=== PATIENT | male | born 1970 | race Caucasian/White ===

== ENCOUNTER 2017-03-26 17:20 | Inpatient (IN) | payer OTHER ==
[~2017-03-26] VITALS: Ht 185.4 cm; Wt 81.1 kg
[2017-03-26 17:22] VITALS: BP 128/99; PULSE 100; RESP 20; TEMP 97.8; O2SAT 98
--- NOTE | 2017-03-26 17:36 | PD ---
HPI Chief Complaint: Chest Pain Time Seen by Provider: 17:35 Travel History International Travel<30 days: No Contact w/Intl Traveler<30days: No Traveled to known affect area: No History of Present Illness HPI 46-year-old male came to the emergency room with history of epigastric pain radiating to the right upper quadrant and left upper quadrant for past 1 week. Occasionally the pain also goes substernal. Patient has history of hepatitis C , cirrhosis and coronary artery disease with a stent in his heart. Patient decided to come to the emergency room when the symptoms were not getting better. Patient has had most of his medical care in various parts of the country. He says he has moved down to [place] to get a better treatment for his hep C. Patient was slightly tachycardic upon arrival to the ER. No history of nausea, vomiting or diarrhea. No history of fever or chills. No history of cough. PFSH Past Medical History Narrative Medical List of his past medical, surgical, social and family history is reviewed from the nursing note. Hx Anticoagulant Therapy: Yes Cardiovascular Problems: Yes Diabetes: Yes Respiratory: Yes Social History Tobacco Use: Yes Allergies-Medications (Allergen,Severity, Reaction): Coded Allergies: No Known Allergies (Unverified , 03/26/17) Comments No known drug allergies. Reported Meds & Prescriptions Reported Meds & Active Scripts Active Reported Metoprolol Tartrate 25 Mg Tab 25 Mg PO BID Novolin 70-30 Inj (Insulin Human Isoph/Insulin Regular) 1,000 Unit/10 Ml Vial 10 Units SQ Novolog Inj (Insulin Aspart) 1,000 Unit/10 Ml Vial 0 SQ DIRECTED Sliding Scale as directed. Gabapentin 300 Mg Cap 300 Mg PO TID Famotidine 40 Mg Tab 40 Mg PO HS Clopidogrel (Clopidogrel Bisulfate) 75 Mg Tab 75 Mg PO DAILY Aspirin 81 Mg Chew 81 Mg CHEW DAILY Hydrocodone-Acetaminophen 5-325 mg Tab 1 Tab PO TID PRN Narrative Medication List of his home medications reviewed from the nursing note. Review of Systems Except as stated in HPI: all other systems reviewed are Neg Cardiovascular: Positive: Chest Pain or Discomfort Gastrointestinal: Positive: Abdominal Pain Physical Exam Narrative GENERAL: Awake, alert, moderate distress SKIN: Focused skin assessment warm/dry. HEAD: Atraumatic. Normocephalic. EYES: Pupils equal and round. No scleral icterus. No injection or drainage. ENT: No nasal bleeding or discharge. Mucous membranes pink and moist. NECK: Trachea midline. No JVD. CARDIOVASCULAR: Regular rate and rhythm. No murmur appreciated. RESPIRATORY: No accessory muscle use. Clear to auscultation. Breath sounds equal bilaterally. GASTROINTESTINAL: Abdomen soft, epigastric tenderness, nondistended. Hepatic and splenic margins not palpable. MUSCULOSKELETAL: No obvious deformities. No clubbing. No cyanosis. No edema. NEUROLOGICAL: Awake and alert. No obvious cranial nerve deficits. Motor grossly within normal limits. Normal speech. PSYCHIATRIC: Appropriate mood and affect; insight and judgment normal. Data Data Last Documented VS Vital Signs Date Time Temp Pulse Resp B/P (MAP) Pulse Ox O2 Delivery O2 Flow Rate FiO2 03/26/17 18:09 18 97 Room Air 03/26/17 17:22 97.8 100 Orders Orders Complete Blood Count With Diff (03/26/17 17:51) Comprehensive Metabolic Panel (03/26/17 17:51) Lipase (03/26/17 17:51) Iv Access Insert/Monitor (03/26/17 17:51) Ecg Monitoring (03/26/17 17:51) Oximetry (03/26/17 17:51) Sodium Chloride 0.9% Flush (Ns Flush) (03/26/17 18:00) Ct Abd/Pel W Iv Contrast(Rout) (03/26/17 ) Ketorolac Inj (Toradol Inj) (03/26/17 18:00) Troponin I (03/26/17 18:00) Insulin Human Regular Inj (Novolin R Inj (03/26/17 19:15) Sodium Chlor 0.9% 1000 Ml Inj (Ns 1000 M (03/26/17 19:15) Blood Glucose (03/26/17 19:11) Iohexol 350 Inj (Omnipaque 350 Inj) (03/26/17 19:16) Admit Order (Ed Use Only) (03/26/17 20:22) Labs Laboratory Tests Test 03/26/17 18:00 White Blood Count 8.0 TH/MM3 Red Blood Count 4.56 MIL/MM3 Hemoglobin 15.6 GM/DL Hematocrit 43.9 % Mean Corpuscular Volume 96.3 FL Mean Corpuscular Hemoglobin 34.2 PG Mean Corpuscular Hemoglobin Concent 35.5 % Red Cell Distribution Width 13.7 % Platelet Count 112 TH/MM3 Mean Platelet Volume 8.1 FL Neutrophils (%) (Auto) 51.6 % Lymphocytes (%) (Auto) 37.2 % Monocytes (%) (Auto) 9.0 % Eosinophils (%) (Auto) 1.7 % Basophils (%) (Auto) 0.5 % Neutrophils # (Auto) 4.1 TH/MM3 Lymphocytes # (Auto) 3.0 TH/MM3 Monocytes # (Auto) 0.7 TH/MM3 Eosinophils # (Auto) 0.1 TH/MM3 Basophils # (Auto) 0.0 TH/MM3 CBC Comment DIFF FINAL Differential Comment Blood Urea Nitrogen 18 MG/DL Creatinine 1.00 MG/DL Random Glucose 645 MG/DL Total Protein 7.5 GM/DL Albumin 3.3 GM/DL Calcium Level 8.7 MG/DL Alkaline Phosphatase 474 U/L Aspartate Amino Transf (AST/SGOT) 146 U/L Alanine Aminotransferase (ALT/SGPT) 176 U/L Total Bilirubin 0.8 MG/DL Sodium Level 129 MEQ/L Potassium Level 4.6 MEQ/L Chloride Level 98 MEQ/L Carbon Dioxide Level 21.2 MEQ/L Anion Gap 10 MEQ/L Estimat Glomerular Filtration Rate 80 ML/MIN Hemoglobin A1c 10.9 % Troponin I LESS THAN 0.02 NG/ML Lipase 178 U/L B-Hydroxybutyrate 0.24 MMOL/L MDM Medical Decision Making Medical Screen Exam Complete: Yes Emergency Medical Condition: Yes Medical Record Reviewed: Yes Interpretation(s) Twelve-lead EKG was reviewed by me. Normal sinus rhythm, normal axis, nonspecific ST-T wave changes. Heart rate of 94 bpm. Differential Diagnosis Acute pancreatitis, acute gastritis Narrative Course 7:08 PM CBC is back and within acceptable limits. Awaiting for the chemistry, liver function test as well as CAT scan. Patient was medicated for pain and IV fluid bolus. Case has been signed over to the oncoming ER physician. Procedures EKG Prior to Arrival: Mya Thompson MD Mar 26, 2017 17:36
[2017-03-26] MEDS ORDERED: METO25TA3 PO (17:39)
[2017-03-26] MEDS ORDERED: CLOP75TA PO (17:39)
[2017-03-26] MEDS ORDERED: NOVO7030P2 SQ (17:39)
[2017-03-26] MEDS ORDERED: NOVOLOGP2 SQ (17:39)
[2017-03-26] MEDS ORDERED: FAMO40TA PO (17:39)
[2017-03-26] MEDS ORDERED: ASPI-516 CHEW (17:39)
[2017-03-26] MEDS ORDERED: HYDR-3516 PO (17:39)
[2017-03-26] MEDS ORDERED: GABA300C5 PO (17:39)
[2017-03-26] MEDS ORDERED: SODIUM CHLORIDE 0.9% FLUSH 10 ML FLUSH IV FLUSH PRN ×2 (18:00→21:15)
[2017-03-26] MEDS ORDERED: KETOROLAC TROMETHAMINE 30 MG/ML (IVP) VIAL IV PUSH ONE (18:00)
[2017-03-26 18:09] VITALS: RESP 18; O2SAT 97
[2017-03-26 18:44] LABS: AUTOMATED NEUTROPHIL # 4.1 TH/MM3 (1.8-7.7); BASOPHIL % 0.5 % (0.0-2.0); EOSINOPHIL # 0.1 TH/MM3 (0-0.4); EOSINOPHIL % 1.7 % (0.0-4.0); HEMATOCRIT 43.9 % (39.0-51.0); HEMO FLAGS DIFF FINAL; LYMPH % 37.2 % (9.0-44.0); MEAN CELL VOLUME 96.3 FL (80.0-100.0); MEAN CORPUSCULAR HEMOGLOBIN 34.2 PG (27.0-34.0); MEAN CORPUSCULAR HGB CONC 35.5 % (32.0-36.0); NEUT % 51.6 % (16.0-70.0); PLATELET COUNT 112 TH/MM3 (150-450); RED BLOOD COUNT 4.56 MIL/MM3 (4.50-5.90); RED CELL DISTRIBUTION WIDTH 13.7 % (11.6-17.2)
[2017-03-26 18:59] LABS: ALT (GPT) 176 U/L (12-78); ANION GAP 10 MEQ/L (5-15); AST (GOT) 146 U/L (15-37); BICARBONATE 21.2 MEQ/L (21.0-32.0); BLOOD UREA NITROGEN 18 MG/DL (7-18); CHLORIDE 98 MEQ/L (98-107); GLOMERULAR FILTRATION RATE 80 ML/MIN (>89); SODIUM (NA) 129 MEQ/L (136-145)
[2017-03-26 19:01] LABS: POTASSIUM 4.6 MEQ/L (3.5-5.1)
[2017-03-26 19:02] LABS: ALKALINE PHOSPHATASE 474 U/L (45-117); TOTAL BILIRUBIN ADULT 0.8 MG/DL (0.2-1.0)
--- NOTE | 2017-03-26 19:11 | PD ---
Physical Exam Narrative General: The patient is a well-developed well-nourished male in no acute distress. Head and Neck exam: Head is normocephalic atraumatic. Eyes: EOMI, pupils are equal round and reactive to light. Nose: Midline septum with pink mucous membranes Mouth: Dentition unremarkable. Moist mucus membranes. Posterior oropharynx is not erythematous. No tonsillar hypertrophy. Uvula midline. Airway patent. Neck: No palpable lymphadenopathy. No nuchal rigidity. No thyromegaly. Cardiovascular: Regular rate and rhythm without murmurs, gallops, or rubs. Lungs: Clear to auscultation bilaterally. No wheezes, rhonchi, or rales. Abdomen: Soft, with reported tenderness on palpation of the right upper quadrant of the abdomen. No other tenderness on palpation of the other quadrants of the abdomen. Negative Buck's sign. No guarding, rebound, or rigidity. Normal bowel sounds are audible. No tenderness on palpation of McBurney's point. Extremities: No clubbing, cyanosis, or edema. 2+ pulses in all 4 extremities. The patient reports having bilateral foot pain related to neuropathy. No calf tenderness on palpation. Neurologic Exam: Grossly nonfocal. Skin Exam: No rash noted. Intact skin that is warm and dry. Data Data Last Documented VS Vital Signs Date Time Temp Pulse Resp B/P (MAP) Pulse Ox O2 Delivery O2 Flow Rate FiO2 03/26/17 18:09 18 97 Room Air 03/26/17 17:22 97.8 100 Orders Orders Complete Blood Count With Diff (03/26/17 17:51) Comprehensive Metabolic Panel (03/26/17 17:51) Lipase (03/26/17 17:51) Iv Access Insert/Monitor (03/26/17 17:51) Ecg Monitoring (03/26/17 17:51) Oximetry (03/26/17 17:51) Sodium Chloride 0.9% Flush (Ns Flush) (03/26/17 18:00) Ct Abd/Pel W Iv Contrast(Rout) (03/26/17 ) Ketorolac Inj (Toradol Inj) (03/26/17 18:00) Troponin I (03/26/17 18:00) Insulin Human Regular Inj (Novolin R Inj (03/26/17 19:15) Sodium Chlor 0.9% 1000 Ml Inj (Ns 1000 M (03/26/17 19:15) Blood Glucose (03/26/17 19:11) Iohexol 350 Inj (Omnipaque 350 Inj) (03/26/17 19:16) Admit Order (Ed Use Only) (03/26/17 20:22) Chest, Single Ap (03/26/17 20:27) Aspirin Chew (Aspirin Chew) (03/26/17 20:30) Nitroglycerin 2% Oint (Nitroglycerin 2% (03/26/17 20:30) Labs Laboratory Tests Test 03/26/17 18:00 White Blood Count 8.0 TH/MM3 Red Blood Count 4.56 MIL/MM3 Hemoglobin 15.6 GM/DL Hematocrit 43.9 % Mean Corpuscular Volume 96.3 FL Mean Corpuscular Hemoglobin 34.2 PG Mean Corpuscular Hemoglobin Concent 35.5 % Red Cell Distribution Width 13.7 % Platelet Count 112 TH/MM3 Mean Platelet Volume 8.1 FL Neutrophils (%) (Auto) 51.6 % Lymphocytes (%) (Auto) 37.2 % Monocytes (%) (Auto) 9.0 % Eosinophils (%) (Auto) 1.7 % Basophils (%) (Auto) 0.5 % Neutrophils # (Auto) 4.1 TH/MM3 Lymphocytes # (Auto) 3.0 TH/MM3 Monocytes # (Auto) 0.7 TH/MM3 Eosinophils # (Auto) 0.1 TH/MM3 Basophils # (Auto) 0.0 TH/MM3 CBC Comment DIFF FINAL Differential Comment Blood Urea Nitrogen 18 MG/DL Creatinine 1.00 MG/DL Random Glucose 645 MG/DL Total Protein 7.5 GM/DL Albumin 3.3 GM/DL Calcium Level 8.7 MG/DL Alkaline Phosphatase 474 U/L Aspartate Amino Transf (AST/SGOT) 146 U/L Alanine Aminotransferase (ALT/SGPT) 176 U/L Total Bilirubin 0.8 MG/DL Sodium Level 129 MEQ/L Potassium Level 4.6 MEQ/L Chloride Level 98 MEQ/L Carbon Dioxide Level 21.2 MEQ/L Anion Gap 10 MEQ/L Estimat Glomerular Filtration Rate 80 ML/MIN Troponin I LESS THAN 0.02 NG/ML Lipase 178 U/L [place] Medical Record Reviewed: Yes Supervised Visit with KASSI: No Interpretation(s) Last Impressions Abdomen/Pelvis CT 03/26/17 0000 Signed Impressions: Service Date/Time: Sunday, March 26, 2017 19:16 - CONCLUSION: 1. Cirrhosis and portal hypertension with numerous varices as described above. Britton Miranda MD Narrative Course During the course of the patients emergency department visit, the patients history, examination, and differential diagnosis were reviewed with the patient. The patient was placed on a retort press operator with oximetry and frequent blood pressure monitoring. The patient had IV access obtained and blood work sent for analysis. The patient's case is checked out to me by Dr. Burns. Please see her complete history and physical. The patient's case was checked out to me at the conclusion of her shift. The patient reportedly had several concerns, one was abdominal pain, another was chest pain, and a third was his history of hepatitis C, and a fourth was his abdominal hernia. The patient was initially provided Toradol 30 mg IV 1 for pain. The patients laboratory studies were reviewed and remarkable for a white count of 8, hemoglobin 15.6, platelets 112 with 9 monocytes, CMP is remarkable for sodium of 129, GFR of 80, glucose 645, AST 146, ALT 176, alkaline phosphatase 474, troponin I is less than 0.02, lipase 178. According to the record, the patient does have a history of diabetes mellitus. The patient has no acidosis noted on laboratory studies suggested by an anion gap, or abnormal CO2. The patient will be given regular insulin subcutaneous. The patient will be started on normal saline 1 L IV fluid bolus. Radiology studies were reviewed and remarkable for a CT scan of the abdomen and pelvis that shows cirrhosis with portal hypertension and varices, small fat containing left inguinal hernia. No other acute abnormality. Given the patient's reported chest pain, similar to chest pain that he experienced approximately a month ago when he had a cardiac stent placed at [facility], [place], the patient will be admitted to the hospital for a rule out serial cardiac enzyme protocol, and additional management of his poorly controlled diabetes mellitus. Given the patient's chest pain, chest x-ray was added to his workup. The patient was given aspirin 162 mg by mouth 1, nitroglycerin 1 inch to chest wall. The patient reports that he last used NovoLog insulin at approximately 3:30 PM today. He administered 20 units. He reports that his blood sugar is usually above 500 or too high to measure on his Accu-Chek device. He reports that he is supposed to be on 70/30 insulin, however he cannot afford it. He reports that he is checking his blood sugar approximately every 4 hours and simply administering 20 units of NovoLog. He reports that he was diagnosed with diabetes approximately 8-9 years ago. He denies having a primary care physician. He cannot recall the name of his collateral clerk. The patients results were discussed with the patient, including the plan of care. I explained that further testing and/ or monitoring is indicated based on the patients history, examination, and/ or laboratory findings. Therefore, I recommended admission for additional evaluation. The patient expressed understanding and was agreeable with this plan. The patient was admitted to the hospital in stable condition and sent to a bed under the care of the [facility] service. Physician Communication Physician Communication The patient's case including history, pertinent physical examination findings, and laboratory studies were discussed with Dr. Belcher. It was agreed that the patient would be admitted to the [facility] service. Diagnosis Primary Impression: Chest pain, rule out acute myocardial infarction Additional Impressions: History of coronary artery disease Poorly controlled diabetes mellitus Admitting Information Admitting Physician Requests: Observation Esther Waggoner MD Mar 26, 2017 19:10
[2017-03-26] MEDS ORDERED: INSULIN HUMAN REGULAR 1,000 UNITS/10 ML VIAL SQ ONE (19:15)
[2017-03-26] MEDS ORDERED: SODIUM CHLOR 0.9% 1000 ML INJ 1,000 ML IV ONE (19:15)
[2017-03-26] MEDS ORDERED: IOHEXOL 350 MG/ML 10 ML VIAL (for RAD DIAG) IVCONTRAST ONE (19:16)
--- NOTE | 2017-03-26 19:33 | RADRPT ---
EXAM DATE/TIME: 03/26/2017 19:16 [facility] COMPARISON: No previous studies available for comparison. INDICATIONS : Epigastric pain. IV CONTRAST: 97 cc Omnipaque 350 (iohexol) IV ORAL CONTRAST: No oral contrast ingested. RADIATION DOSE: 8.49 CTDIvol (mGy) MEDICAL HISTORY : Hypertension. Diabetes mellitus type 1. SURGICAL HISTORY : Cholecystectomy. ENCOUNTER: Initial ACUITY: 1 month PAIN SCALE: 6/10 LOCATION: abdomen TECHNIQUE: Volumetric scanning of the abdomen and pelvis was performed. Using automated exposure control and ad justment of the mA and/or kV according to patient size, radiation dose was kept as low as reasonably achievable to obtain optimal diagnostic quality images. DICOM format image data is available electro nically for review and comparison. FINDINGS: There is mild nodular hepatic contour characteristic of cirrhosis. Surgical clips from previous ronen cystectomy. There are prominent varices identified in the periesophageal region, gastric varices and splenic sabiha-C's. The kidneys, pancreas and adrenal glands are unremarkable. Urinary bladder, prostate unremarkable. No evidence of bowel obstruction. Appendix normal. No adenopathy or aneurysm. Small fa t-containing left inguinal hernia. Lung bases are clear. Osseous structures are intact. CONCLUSION: 1. Cirrhosis and portal hypertension with numerous varices as described above. Britton Miranda MD on March 26, 2017 at 19:29 Board Certified Radiologist. This report was verified electronically.
[2017-03-26] MEDS ORDERED: ASPIRIN 81 MG CHEW TAB CHEW ONE (20:30)
[2017-03-26] MEDS ORDERED: NITROGLYCERIN 2% OINT 1 GM PACKET TOPICAL ONE (20:30)
[2017-03-26] MEDS ORDERED: GLUCAGON 1 MG/ML VIAL OTHER PRN (21:15)
[2017-03-26] MEDS ORDERED: DEXTROSE 50% IN WATER 50 ML VIAL(D50) IV PUSH PRN (21:15)
[2017-03-26] MEDS ORDERED: ACETAMINOPHEN 500 MG CPLT PO PRN (21:15)
--- NOTE | 2017-03-26 21:17 | RADRPT ---
EXAM DATE/TIME: 03/26/2017 20:50 [facility] COMPARISON: No previous studies available for comparison. INDICATIONS : Chest PAin MEDICAL HISTORY : Cardiovascular disease. SURGICAL HISTORY : Coronary artery stent. ENCOUNTER: Initial ACUITY: 1 day PAIN SCORE: 6/10 LOCATION: Bilateral chest FINDINGS: A single view of the chest demonstrates the lungs to be symmetrically aerated without evidence of mas s, infiltrate or effusion. The cardiomediastinal contours are unremarkable. Osseous structures are intact. CONCLUSION: Normal examination. Britton Miranda MD on March 26, 2017 at 21:15 Board Certified Radiologist. This report was verified electronically.
--- NOTE | 2017-03-26 22:02 | EKG ---
Date Performed: 03/26/2017 Time Performed: 17:39:26 PTAGE: 46 years EKG: Sinus rhythm NORMAL ECG NO PREVIOUS TRACING DOCTOR: Marco Antonio Mulligan Interpretating Date/Time 03/26/2017 22:00:15
--- NOTE | 2017-03-26 23:01 | HHI.HP ---
[facility] No Primary Care Physician Admission Diagnosis Poorly controlled DM, Chest pain with history of recent cardiac sten Diagnoses: Travel History International Travel<30 Days: No Contact w/Intl Traveler <30 Da: No Traveled to Known Affected Are: No History of Present Illness 46-year-old male with a past medical history significant for coronary artery disease stented approximately 1 month ago at [facility], hepatitis C with cirrhosis and uncontrolled diabetes mellitus presents to the emergency department with a one-day history of abdominal and chest pain. The patient states his chest pain started last night is a severe pressure and radiates down his left arm. He states the pain is similar to the pain he had approximately 1 month ago when he was stented at [facility]. He does not currently have a instrumentation technologist, a primary care physician or a electrolytic de scaler. The patient also complains of severe epigastric abdominal pain that is constant. His blood sugar in the emergency department is 645. Beta hydroxybutyrate pending. Initial troponin negative. Patient's other labs are significant for transaminitis and elevated alkaline phosphatase. CT of the abdomen/pelvis significant for cirrhosis and portal hypertension with numerous varices. Review of Systems Endorses constant chills Denies blurry vision, otorrhea, rhinorrhea Denies sore throat and cough Chest pain per history of present illness, no shortness of breath Severe, persistent abdominal pain Denies constipation/diarrhea/nausea/vomiting Denies muscle pain/weakness No rashes Past Family Social History Past Medical History GERD CAD Cirrhosis Hepatitis Cpatient failed interferon therapy in 2002 Uncontrolled diabetes mellitus Lower extremity neuropathy Past Surgical History Esophageal rupture in 2001 Cholecystectomy in November 2016 Cardiac catheterization with stent placement one month ago at [facility] Reported Medications Reported Meds & Active Scripts Active Reported Metoprolol Tartrate 25 Mg Tab 25 Mg PO BID Novolin 70-30 Inj (Insulin Human Isoph/Insulin Regular) 1,000 Unit/10 Ml Vial 10 Units SQ Novolog Inj (Insulin Aspart) 1,000 Unit/10 Ml Vial 0 SQ DIRECTED Sliding Scale as directed. Gabapentin 300 Mg Cap 300 Mg PO TID Famotidine 40 Mg Tab 40 Mg PO HS Clopidogrel (Clopidogrel Bisulfate) 75 Mg Tab 75 Mg PO DAILY Aspirin 81 Mg Chew 81 Mg CHEW DAILY Hydrocodone-Acetaminophen 5-325 mg Tab 1 Tab PO TID PRN Allergies: Coded Allergies: No Known Allergies (Unverified , 03/26/17) Family History Patient was adopted, unaware of his family history Social History Smokes one pack per day 32 years. Occasional marijuana use. Quit alcohol and IV drugs in 2011. Physical Exam Vital Signs Vital Signs Date Time Temp Pulse Resp B/P (MAP) Pulse Ox O2 Delivery O2 Flow Rate FiO2 03/26/17 18:09 18 97 Room Air 03/26/17 17:22 97.8 100 20 128/99 (109) 98 Physical Exam GENERAL: male sitting up in bed SKIN: No rashes, ecchymoses or lesions. Cool and dry. HEAD: Atraumatic. Normocephalic. No temporal or scalp tenderness. EYES: Pupils equal round and reactive. Extraocular motions intact. No scleral icterus. No injection or drainage. ENT: Nose without bleeding, purulent drainage or septal hematoma. Throat without erythema, tonsillar hypertrophy or exudate. Uvula midline. Airway patent. NECK: Trachea midline. No JVD or lymphadenopathy. Supple, nontender, no meningeal signs. CARDIOVASCULAR: Regular rate and rhythm without murmurs, gallops, or rubs. RESPIRATORY: Clear to auscultation. Breath sounds equal bilaterally. No wheezes , rales, or rhonchi. GASTROINTESTINAL: Abdomen soft, exquisitely tender to palpation works in the right upper quadrant. Nondistended. No peritoneal signs. No guarding. No palpable masses. MUSCULOSKELETAL: Extremities without clubbing, cyanosis, or edema. Bilateral lower extremity tenderness. NEUROLOGICAL: Awake and alert. Cranial nerves II through XII intact. Motor and sensory grossly within normal limits. Normal speech. Laboratory Laboratory Tests Test 03/26/17 18:00 White Blood Count 8.0 Red Blood Count 4.56 Hemoglobin 15.6 Hematocrit 43.9 Mean Corpuscular Volume 96.3 Mean Corpuscular Hemoglobin 34.2 Mean Corpuscular Hemoglobin Concent 35.5 Red Cell Distribution Width 13.7 Platelet Count 112 Mean Platelet Volume 8.1 Neutrophils (%) (Auto) 51.6 Lymphocytes (%) (Auto) 37.2 Monocytes (%) (Auto) 9.0 Eosinophils (%) (Auto) 1.7 Basophils (%) (Auto) 0.5 Neutrophils # (Auto) 4.1 Lymphocytes # (Auto) 3.0 Monocytes # (Auto) 0.7 Eosinophils # (Auto) 0.1 Basophils # (Auto) 0.0 CBC Comment DIFF FINAL Differential Comment Blood Urea Nitrogen 18 Creatinine 1.00 Random Glucose 645 Total Protein 7.5 Albumin 3.3 Calcium Level 8.7 Alkaline Phosphatase 474 Aspartate Amino Transf (AST/SGOT) 146 Alanine Aminotransferase (ALT/SGPT) 176 Total Bilirubin 0.8 Sodium Level 129 Potassium Level 4.6 Chloride Level 98 Carbon Dioxide Level 21.2 Anion Gap 10 Estimat Glomerular Filtration Rate 80 Troponin I LESS THAN 0.02 Lipase 178 Result Diagram: 03/26/17 1800 03/26/17 1800 Junrinlinda VTE Risk Assessment Caprinlinda VTE Risk Assessment: No/Low Risk (score <= 1) Caprini Risk Assessment Model Point Value = 1 Point Value = 2 Point Value = 3 Point Value = 5 Age 41-60 Minor surgery BMI > 25 kg/m2 Swollen legs Varicose veins or History of unexplained or recurrent spontaneous Oral contraceptives or hormone replacement Sepsis (< 1 month) Serious lung disease, including pneumonia (< 1 month) Abnormal pulmonary function Acute myocardial infarction Congestive heart failure (< 1 month) History of inflammatory bowel disease Medical patient at bed rest Age 61-74 Arthroscopic surgery Major open surgery (> 45 min) Laparoscopic surgery (> 45 min) Malignancy Confined to bed (> 72 hours) Immobilizing plaster cast Central venous access Age >= 75 History of VTE Family history of VTE Factor V Leiden Prothrombin [id number] Lupus anticoagulant Anticardiolipin antibodies Elevated serum homocysteine Heparin-induced thrombocytopenia Other congenital or acquired thrombophilia Stroke (< 1 month) Elective arthroplasty Hip, pelvis, or leg fracture Acute spinal cord injury (< 1 month) Prophylaxis Regimen Total Risk Factor Score Risk Level Prophylaxis Regimen 0-1 Low Early ambulation 2 Moderate Order ONE of the following: *Sequential Compression Device (SCD) *Heparin 5000 units SQ BID 3-4 Higher Order ONE of the following medications: *Heparin 5000 units SQ TID *Enoxaparin/Lovenox 40 mg SQ daily (WT < 150 kg, CrCl > 30 mL/min) *Enoxaparin/Lovenox 30 mg SQ daily (WT < 150 kg, CrCl > 10-29 mL/min) *Enoxaparin/Lovenox 30 mg SQ BID (WT < 150 kg, CrCl > 30 mL/min) AND/OR *Sequential Compression Device (SCD) 5 or more Highest Order ONE of the following medications: *Heparin 5000 units SQ TID (Preferred with Epidurals) *Enoxaparin/Lovenox 40 mg SQ daily (WT < 150 kg, CrCl > 30 mL/min) *Enoxaparin/Lovenox 30 mg SQ daily (WT < 150 kg, CrCl > 10-29 mL/min) *Enoxaparin/Lovenox 30 mg SQ BID (WT < 150 kg, CrCl > 30 mL/min) AND *Sequential Compression Device (SCD) Assessment and Plan Assessment and Plan 46-year-old male with a past medical history significant for CAD (started one month ago) hep C cirrhosis and uncontrolled diabetes mellitus presents to the emergency department with severe chest and abdominal pain and hyperglycemia. 1. Chest pain with history of CAD Per patient, pain is similar as it was 1 month ago when he had a stent placed Initial troponin/EKG within normal limits ACS rule out with serial troponins/EKGs Nitropatch Morphine for pain 2. Hyperglycemia/uncontrolled diabetes mellitus Patient given 10 units insulin in the ED with blood sugar drop to 439 Beta hydroxybutyrate pending No anion gap Sliding scale insulin every 4 hours Per patient, he cannot afford his home NovoLog 70/30 and has been attempting to control his blood sugars with only Humalog. He states he does not know what his blood sugars normally run because his meter just reads "high". A1c pending 3. Hepatitis C cirrhosis/portal hypertension/varices Patient with transaminitis and elevated alkaline phosphatase Failed interferon treatment in 2002 Gastroenterology consulted, appreciate recommendations 4. GERD Patient reports he had an EGD 1 month ago in [facility] that was significant for severe reflux disease Continue famotidine FEN: Nothing by mouth for ACS rule out Electrolytes: Significant for a sodium of 129, MS at 100 cc/hour, trend BMP Heparin Physician Certification 2 Midnight Certification Type: Admission for Inpatient Services Order for Inpatient Services The services are ordered in accordance with Medicare regulations or non- Medicare payer requirements, as applicable. In the case of services not specified as inpatient-only, they are appropriately provided as inpatient services in accordance with the 2-midnight benchmark. Estimated LOS (days): 2 2 days is the estimated time the patient will need to remain in the hospital, assuming treatment plan goals are met and no additional complications. Post-Hospital Plan: Not yet determined Zaria Belcher MD Mar 26, 2017 23:01
[2017-03-26] MEDS: HEPARIN SODIUM - SQ 10,000 UNITS/ML VIAL SQ SCH (23:02)
[2017-03-26] MEDS: SODIUM CHLOR 0.9% 1000 ML INJ 1,000 ML IV SCH (23:02)
[2017-03-26 23:30] VITALS: BP 135/84; PULSE 95; RESP 18; TEMP 96.4; O2SAT 99
[2017-03-26] MEDS: MORPHINE SULFATE 4 MG/ML INJ IV PUSH PRN (23:31)
[2017-03-26] MEDS: NITROGLYCERIN 2% OINT 1 GM PACKET TOP SCH (23:31)
[2017-03-27 01:57] LABS: AUTOMATED NEUTROPHIL # 2.8 TH/MM3 (1.8-7.7); BASOPHIL % 0.6 % (0.0-2.0); EOSINOPHIL # 0.2 TH/MM3 (0-0.4); EOSINOPHIL % 3.3 % (0.0-4.0); HEMATOCRIT 40.5 % (39.0-51.0); LYMPH % 47.7 % (9.0-44.0); LYMPHOCYTE # 3.4 TH/MM3 (1.0-4.8); MEAN CELL VOLUME 95.8 FL (80.0-100.0); MEAN CORPUSCULAR HEMOGLOBIN 32.9 PG (27.0-34.0); MEAN CORPUSCULAR HGB CONC 34.3 % (32.0-36.0); MONO % 9.2 % (0.0-8.0); NEUT % 39.2 % (16.0-70.0); PLATELET COUNT 92 TH/MM3 (150-450); RED BLOOD COUNT 4.23 MIL/MM3 (4.50-5.90); RED CELL DISTRIBUTION WIDTH 13.9 % (11.6-17.2); WHITE BLOOD COUNT 7.1 TH/MM3 (4.0-11.0)
[2017-03-27 02:00] LABS: HEMO FLAGS AUTO DIFF
[2017-03-27 02:30] LABS: ALT (GPT) 151 U/L (12-78); ANION GAP 7 MEQ/L (5-15); AST (GOT) 109 U/L (15-37); BICARBONATE 28.3 MEQ/L (21.0-32.0); BLOOD UREA NITROGEN 15 MG/DL (7-18); CHLORIDE 103 MEQ/L (98-107); GLOMERULAR FILTRATION RATE 118 ML/MIN (>89); POTASSIUM 4.1 MEQ/L (3.5-5.1); SODIUM (NA) 138 MEQ/L (136-145)
[2017-03-27 02:33] LABS: ALKALINE PHOSPHATASE 361 U/L (45-117); TOTAL BILIRUBIN ADULT 0.9 MG/DL (0.2-1.0)
[2017-03-27 02:38] LABS: CREATINE KINASE 79 U/L (39-308)
[2017-03-27] MEDS: MORPHINE SULFATE 4 MG/ML INJ IV PUSH PRN ×6 (02:45→21:33)
[2017-03-27 03:00] VITALS: BP 144/87; PULSE 91; RESP 18; TEMP 98.3; O2SAT 98
[2017-03-27 04:25] LABS: OVALOCYTES 1+ (NORMAL); PLATELET ESTIMATE SMEAR LOW (NORMAL); PLATELET MORPHOLOGY NORMAL (NORMAL); SCAN/DIFF AUTO DIFF CONFIRMED
[2017-03-27] MEDS: NITROGLYCERIN 2% OINT 1 GM PACKET TOP SCH ×3 (05:34→17:06)
[2017-03-27] MEDS: HEPARIN SODIUM - SQ 10,000 UNITS/ML VIAL SQ SCH ×3 (05:34→20:40)
[2017-03-27 07:55] LABS: CREATINE KINASE 98 U/L (39-308)
[2017-03-27 08:00] VITALS: BP 139/88; PULSE 83; RESP 18; TEMP 96.2; O2SAT 98
[2017-03-27] MEDS: INSULIN ASPART SUPPLEMENTAL SCALE SQ SCH ×4 (08:00→20:38)
[2017-03-27] MEDS: METOPROLOL TARTRATE 25 MG TAB PO SCH ×2 (08:43→20:16)
[2017-03-27] MEDS: GABAPENTIN 300 MG CAP PO SCH ×3 (08:43→17:06)
[2017-03-27] MEDS: CLOPIDOGREL 75 MG TAB PO SCH (08:44)
[2017-03-27] MEDS: ASPIRIN 81 MG CHEW TAB CHEW SCH (08:44)
[2017-03-27] MEDS: SODIUM CHLORIDE 0.9% FLUSH 10 ML FLUSH IV FLUSH SCH ×2 (08:44→20:16)
[2017-03-27 12:00] VITALS: BP 147/89; PULSE 86; RESP 18; TEMP 97.1; O2SAT 98
[2017-03-27 12:03] LABS: HEMOGLOBIN A1a 1.2 %; HEMOGLOBIN A1b 1.3 %; HEMOGLOBIN Ao 72.3 %; HEMOGLOBIN F 2.2 %; HEMOGLOBIN LA1C 5.8 %; HEMOGLOBIN P3 6.4 %
--- NOTE | 2017-03-27 12:04 | HHI.PR ---
Subjective Remarks The patient was complaining of epigastric pain. He says sometimes he sees a bulge in the epigastric area that he pushes back in. He says he will try to eat but eating generally makes the abdominal pain worse. He says he has had thoughts about hurting himself because of his medical ailments. Discussed with nursing. Objective Vitals Vital Signs Date Time Temp Pulse Resp B/P (MAP) Pulse Ox O2 Delivery O2 Flow Rate FiO2 03/27/17 08:00 96.2 83 18 139/88 (105) 98 03/27/17 03:00 98.3 91 18 144/87 (106) 98 03/26/17 23:30 96.4 95 18 135/84 (101) 99 03/26/17 18:09 18 97 Room Air 03/26/17 17:22 97.8 100 20 128/99 (109) 98 I/O 03/26/17 03/26/17 03/26/17 03/27/17 03/27/17 03/27/17 07:00 15:00 23:00 07:00 15:00 23:00 Intake Total 1000 ml 0 ml Balance 1000 ml 0 ml Intake Oral 0 ml IV Total 1000 ml # Voids 1 # Bowel Movements 0 Result Diagram: 03/27/17 0140 03/27/17 0140 Imaging Last Impressions Chest X-Ray 03/26/172026 Signed Impressions: Service Date/Time: Sunday, March 26, 2017 20:50 - CONCLUSION: Normal examination. Britton Miranda MD Abdomen/Pelvis CT 03/26/17 0000 Signed Impressions: Service Date/Time: Sunday, March 26, 2017 19:16 - CONCLUSION: 1. Cirrhosis and portal hypertension with numerous varices as described above. Britton Miranda MD Objective Remarks GENERAL: Resting comfortably. SKIN: No rashes, ecchymoses or lesions. Cool and dry. HEAD: Atraumatic. Normocephalic. No temporal or scalp tenderness. EYES: Pupils equal round and reactive. Extraocular motions intact. No scleral icterus. No injection or drainage. ENT: Nose without bleeding, purulent drainage or septal hematoma. Throat without erythema, tonsillar hypertrophy or exudate. Uvula midline. Airway patent. NECK: Trachea midline. No JVD or lymphadenopathy. Supple, nontender, no meningeal signs. CARDIOVASCULAR: Regular rate and rhythm without murmurs, gallops, or rubs. RESPIRATORY: Clear to auscultation. Breath sounds equal bilaterally. No wheezes , rales, or rhonchi. GASTROINTESTINAL: Abdomen soft, tender to palpation in the epigastric area. Nondistended. No peritoneal signs. No guarding. No palpable masses. MUSCULOSKELETAL: Extremities without clubbing, cyanosis, or edema. Bilateral lower extremity tenderness. NEUROLOGICAL: Awake and alert. Cranial nerves II through XII intact. Motor and sensory grossly within normal limits. Normal speech. Medications and IVs Current Medications Medications (Trade) Dose Ordered Sig/Shae Route Start Time Stop Time Status Last Admin (NS Flush) 2 ml BID IV FLUSH 03/27/17 09:00 03/27/17 08:44 (NS Flush) 2 ml UNSCH PRN IV FLUSH 03/26/17 21:15 (Nitroglycerin 2% Oint) 1 inch Q6HR TOP 03/27/17 00:00 03/27/17 05:34 (Tylenol) 500 mg Q4H PRN PO 03/26/17 21:15 (Morphine Inj) 2 mg Q3HR PRN IV PUSH 03/26/17 21:15 03/27/17 08:45 (Heparin Inj) 5,000 units Q8HR SQ 03/26/17 22:00 03/27/17 05:34 (D50w (Vial) Inj) 50 ml UNSCH PRN IV PUSH 03/26/17 21:15 (Glucagon Inj) 1 mg UNSCH PRN OTHER 03/26/17 21:15 (NovoLOG SUPPLEMENTAL SCALE) 1 ACHS SLIDING SCALE SQ 03/27/17 08:00 Sodium Chloride 1,000 ml @ 75 mls/hr [id number] IV 03/26/17 23:00 03/26/17 23:02 (Aspirin Chew) 81 mg DAILY CHEW 03/27/17 09:00 03/27/17 08:44 (Plavix) 75 mg DAILY PO 03/27/17 09:00 03/27/17 08:44 (Neurontin) 300 mg TID PO 03/27/17 09:00 03/27/17 08:43 (Lopressor) 25 mg BID PO 03/27/17 09:00 03/27/17 08:43 (Pepcid) 40 mg HS PO 03/27/17 21:00 (NovoLIN N INJ) 10 units DAILY SQ 03/27/17 12:00 A/P Assessment and Plan 46-year-old male with a past medical history significant for CAD (started one month ago) hep C cirrhosis and uncontrolled diabetes mellitus presents to the emergency department with severe chest and abdominal pain and hyperglycemia. 1. Chest pain with history of CAD Per patient, pain is similar as it was 1 month ago when he had a stent placed. EKG with normal sinus rhythm. Trops flat. Initial troponin/EKG within normal limits ACS rule out with serial troponins/EKGs Nitropatch Morphine for pain 2. Hyperglycemia/uncontrolled diabetes mellitus Patient given 10 units insulin in the ED with blood sugar drop to 439 Beta hydroxybutyrate pending No anion gap Sliding scale insulin every 4 hours Per patient, he cannot afford his home NovoLog 70/30 and has been attempting to control his blood sugars with only Humalog. He states he does not know what his blood sugars normally run because his meter just reads "high". A1c pending Start NPH 10 units daily and consult the nursing educator 3. Hepatitis C cirrhosis/portal hypertension/varices Patient with transaminitis and elevated alkaline phosphatase Failed interferon treatment in 2002 Gastroenterology consulted 4. GERD Patient reports he had an EGD 1 month ago in [facility] that was significant for severe reflux disease Continue famotidine - GI consult pending 5. SI/ Anxiety The pt endorses SI. - psych consult pending. PPx: Jarrett Tom DO Mar 27, 2017 12:04
[2017-03-27] MEDS: SODIUM CHLOR 0.9% 1000 ML INJ 1,000 ML IV SCH (12:20)
[2017-03-27] MEDS: INSULIN HUMAN NPH 1,000 UNITS/10 ML VIAL SQ SCH (13:03)
--- NOTE | 2017-03-27 15:42 | PD.CONS ---
HPI History of Present Illness This is a 46 year old male with a history of liver cirrhosis, Hepatitis C, and esophageal varices, who presented to the ER for evaluation of chest pain and epigastric pain. His chest pain is being worked up by the attending. GI has been consulted for abdominal pain with elevated LFTs. The patient reports that he was diagnosed with liver cirrhosis and Hepatitis C in 1991. He completed Interferon and Ribavirin in 2001, but reports this was unsuccessful. He reports that in 2007, his "esophagus ruptured" and he bled out. He is unable to provide any more details for this other than his esophagus bled out and he almost . At one point, he was seen by the [facility] in 2001, but he has not been recently and does not currently follow with a housing director. He reports that he had his gallbladder removed about 4-5 months ago. Since that time, he has been having intermittent epigastric pain. He reports that this is a sharp pain in his epigastric area, that bulges. He is able to reduce the bulging area, and the sharp pain will subside, but he has a constant numbing pain. He has frequent nausea, with occasional vomiting. He is not having any hematemesis or melena/hematochezia. He reports that after his discharge, he was given Prilosec 40mg po BID, but he is taking OTC 80mg po BID to control his symptoms of heartburn/GERD. He reports that he has been having formed white stools. He is not having weight loss. CT scan abdomen and pelvis (03/26/17)---> Cirrhosis and portal hypertension with numerous varices as described above. He denies any issues with hepatic encephalopathy or ascites. He was recently hospitalized at [facility] in January. He underwent a cardiac catheterization (02/13/17)---> 40% stenosis mid vessel lesion LAD, 40% distal vessel lesion left circumflex, 80% stenosis proximal vessel lesion of right coronary. S/P balloon angioplasty and stent placement for right coronary artery and takes Plavix/ASA. He was then evaluated with EGD (02/15/17)---> distal esophagitis, mild patchy gastritis, patchy duodenitis. Pathology with acute esophagitis, no gastric mucosa is identified, benign fundic mucosa by Dr. Cotto. [facility] Past Medical History GERD CAD Liver Cirrhosis Hepatitis C, unsuccessful tx Esophageal varices Uncontrolled diabetes mellitus Lower extremity neuropathy Past Surgical History EGD Cholecystectomy in November 2016 Cardiac catheterization with stent placement one month ago at [facility] (Niyah Edwards) Coded Allergies: No Known Allergies (Unverified , 03/26/17) Medications Allergies Coded Allergies Type Severity Reaction Last Updated Verified No Known Allergies 03/26/17 No Active Scripts Medications Dose Route/Sig Max Daily Dose Days Date Category Dose Instructions Metoprolol Tartrate 25 Mg Tab 25 Mg PO BID 03/26/17 Reported Novolin 70-30 Inj (Insulin Human Isoph/Insulin Regular) 1,000 Unit/10 Ml Vial 10 Units SQ 03/26/17 Reported Novolog Inj (Insulin Aspart) 1,000 Unit/10 Ml Vial 0 SQ DIRECTED 03/26/17 Reported Sliding Scale as directed. Gabapentin 300 Mg Cap 300 Mg PO TID 03/26/17 Reported Famotidine 40 Mg Tab 40 Mg PO HS 03/26/17 Reported Clopidogrel (Clopidogrel Bisulfate) 75 Mg Tab 75 Mg PO DAILY 03/26/17 Reported Aspirin 81 Mg Chew 81 Mg CHEW DAILY 03/26/17 Reported Hydrocodone-Acetaminophen 5-325 mg Tab 1 Tab PO TID PRN 03/26/17 Reported Family History Patient was adopted, unaware of his family history Social History Smokes one pack per day 32 years. Occasional marijuana use. Quit alcohol and IV drugs in 2011. (Niyah Edwards) Review of Systems Constitutional: COMPLAINS OF: Fatigue, Chills Cardiovascular: COMPLAINS OF: Chest pain Gastrointestinal: COMPLAINS OF: Abdominal pain, Nausea, Vomiting, Heartburn, DENIES: Black stools, Bloody stools, Constipation, Diarrhea, Swelling of Abdomen Musculoskeletal: COMPLAINS OF: Back pain Neurologic: COMPLAINS OF: Headache (Niyah Edwards) GI Exam Vitals I&O Vital Signs Date Time Temp Pulse Resp B/P (MAP) Pulse Ox O2 Delivery O2 Flow Rate FiO2 03/27/17 12:00 97.1 86 18 147/89 (108) 98 03/27/17 08:00 96.2 83 18 139/88 (105) 98 03/27/17 03:00 98.3 91 18 144/87 (106) 98 03/26/17 23:30 96.4 95 18 135/84 (101) 99 03/26/17 18:09 18 97 Room Air 03/26/17 17:22 97.8 100 20 128/99 (109) 98 I/O 03/26/17 03/26/17 03/26/17 03/27/17 03/27/17 03/27/17 07:00 15:00 23:00 07:00 15:00 23:00 Intake Total 1000 ml 0 ml Balance 1000 ml 0 ml Intake Oral 0 ml IV Total 1000 ml # Voids 1 # Bowel Movements 0 Imaging Last Impressions Chest X-Ray 03/26/172026 Signed Impressions: Service Date/Time: Sunday, March 26, 2017 20:50 - CONCLUSION: Normal examination. Britton Miranda MD Abdomen/Pelvis CT 03/26/17 0000 Signed Impressions: Service Date/Time: Sunday, March 26, 2017 19:16 - CONCLUSION: 1. Cirrhosis and portal hypertension with numerous varices as described above. Britton Miranda MD Laboratory Test 03/26/17 18:00 03/27/17 01:40 03/27/17 07:06 White Blood Count 8.0 TH/MM3 7.1 TH/MM3 Red Blood Count 4.56 MIL/MM3 4.23 MIL/MM3 Hemoglobin 15.6 GM/DL 13.9 GM/DL Hematocrit 43.9 % 40.5 % Mean Corpuscular Volume 96.3 FL 95.8 FL Mean Corpuscular Hemoglobin 34.2 PG 32.9 PG Mean Corpuscular Hemoglobin Concent 35.5 % 34.3 % Red Cell Distribution Width 13.7 % 13.9 % Platelet Count 112 TH/MM3 92 TH/MM3 Mean Platelet Volume 8.1 FL 7.9 FL Neutrophils (%) (Auto) 51.6 % 39.2 % Lymphocytes (%) (Auto) 37.2 % 47.7 % Monocytes (%) (Auto) 9.0 % 9.2 % Eosinophils (%) (Auto) 1.7 % 3.3 % Basophils (%) (Auto) 0.5 % 0.6 % Neutrophils # (Auto) 4.1 TH/MM3 2.8 TH/MM3 Lymphocytes # (Auto) 3.0 TH/MM3 3.4 TH/MM3 Monocytes # (Auto) 0.7 TH/MM3 0.6 TH/MM3 Eosinophils # (Auto) 0.1 TH/MM3 0.2 TH/MM3 Basophils # (Auto) 0.0 TH/MM3 0.0 TH/MM3 CBC Comment DIFF FINAL AUTO DIFF Differential Comment AUTO DIFF CONFIRMED Blood Urea Nitrogen 18 MG/DL 15 MG/DL Creatinine 1.00 MG/DL 0.72 MG/DL Random Glucose 645 MG/DL 340 MG/DL Total Protein 7.5 GM/DL 6.6 GM/DL Albumin 3.3 GM/DL 3.0 GM/DL Calcium Level 8.7 MG/DL 8.4 MG/DL Alkaline Phosphatase 474 U/L 361 U/L Aspartate Amino Transf (AST/SGOT) 146 U/L 109 U/L Alanine Aminotransferase (ALT/SGPT) 176 U/L 151 U/L Total Bilirubin 0.8 MG/DL 0.9 MG/DL Sodium Level 129 MEQ/L 138 MEQ/L Potassium Level 4.6 MEQ/L 4.1 MEQ/L Chloride Level 98 MEQ/L 103 MEQ/L Carbon Dioxide Level 21.2 MEQ/L 28.3 MEQ/L Anion Gap 10 MEQ/L 7 MEQ/L Estimat Glomerular Filtration Rate 80 ML/MIN 118 ML/MIN Hemoglobin A1c 10.9 % Troponin I LESS THAN 0.02 NG/ML LESS THAN 0.02 NG/ML LESS THAN 0.02 NG/ML Lipase 178 U/L B-Hydroxybutyrate 0.24 MMOL/L Platelet Estimate LOW Platelet Morphology Comment NORMAL Ovalocytes 1+ Total Creatine Kinase 79 U/L 98 U/L Physical Examination HEENT: Normocephalic; atraumatic; no jaundice. CHEST: Resp even/unlabored CARDIAC: RRR ABDOMEN: Soft, nondistended, epigastric pain; hepatosplenomegaly; bowel sounds are present in all four quadrants. EXTREMITIES: No clubbing, cyanosis, or edema. SKIN: Normal; no rash; no jaundice. FRONT OFFICE SUPERVISOR: No focal deficits; alert and oriented times three. (Niyah Edwards) Assessment and Plan Plan ASSESSMENT: - Abdominal pain/Nausea. C/O epigastric pain- sharp pain with bulging in epigastric area, states he can reduce this and the sharp pain will go away, but he will have a constant "numbing pain." S/P recent EGD (02/15/17)---> distal esophagitis, mild patchy gastritis, patchy duodenitis. Pathology with acute esophagitis, no gastric mucosa is identified, benign fundic mucosa by Dr. Cotto. CT scan abdomen and pelvis (03/26/17)---> Cirrhosis and portal hypertension with numerous varices as described above. He does have elevated LFTs (AST/ALT) not in obstructive pattern and no evidence of biliary obstruction on CT. He also complains of constant nausea and occasional vomiting. Of note, he has uncontrolled DM with peripheral neuropathy. - Elevated LFTs/Liver cirrhosis. Dx in 1991. Quit drinking in 2011. T. Bili 0.9, AST 109, ALT 151, Alk Phosph 361. - Hepatitis C, S/P unsuccessful tx with interferon/ribavirin. - GERD. Pt reports that he is taking OTC Prilosec 80mg BID at home. - Thrombocytopenia. 92,000. - Uncontrolled DM. Per attending. - CP, per attending. S/P recent cardiac catheterization (02/13/17)---> 40% stenosis mid vessel lesion LAD, 40% distal vessel lesion left circumflex, 80% stenosis proximal vessel lesion of right coronary. S/P balloon angioplasty and stent placement for right coronary artery and takes Plavix/ASA. PLAN: - 2 gram Na+ Diet - Change pepcid to protonix - GES - AFP level - CBC, CMP, PT/INR in am - Supportive care - Further recommendations to follow based on results of above - Pt seen and examined by Dr. Hill and myself and this note is written on his behalf (Niyah Edwards) Physician Comments Seen and examined, plan as above Will follow up with you. Further recommendations to follow. (Kaushik Hill MD) Niyah Edwards Mar 27, 2017 15:42 Kaushik Hill MD Mar 27, 2017 15:56
[2017-03-27 16:00] VITALS: BP 152/97; PULSE 92; RESP 18; TEMP 95.8; O2SAT 100
[2017-03-27] MEDS: PANTOPRAZOLE SODIUM 40 MG VIAL IV PUSH SCH (18:15)
[2017-03-27 20:00] VITALS: BP 161/92; PULSE 81; RESP 17; TEMP 96.6; O2SAT 100
[2017-03-27] MEDS ORDERED: FAMOTIDINE 20 MG TAB PO SCH (21:00)
[2017-03-28] VITALS (7 sets, daily range): BP systolic 126–163; BP diastolic 71–99; PULSE 80–97; RESP 16–18; TEMP 95.7–97.6; O2SAT 98–100
[2017-03-28] MEDS: SODIUM CHLOR 0.9% 1000 ML INJ 1,000 ML IV SCH ×2 (01:40→15:00)
[2017-03-28] MEDS: MORPHINE SULFATE 4 MG/ML INJ IV PUSH PRN ×6 (02:21→21:44)
[2017-03-28] MEDS: PANTOPRAZOLE SODIUM 40 MG VIAL IV PUSH SCH (05:17)
[2017-03-28] MEDS: HEPARIN SODIUM - SQ 10,000 UNITS/ML VIAL SQ SCH ×3 (05:18→21:44)
[2017-03-28] MEDS: NITROGLYCERIN 2% OINT 1 GM PACKET TOP SCH ×3 (06:00→12:00)
[2017-03-28] MEDS: INSULIN ASPART SUPPLEMENTAL SCALE SQ SCH ×3 (08:00→21:42)
[2017-03-28] MEDS: CLOPIDOGREL 75 MG TAB PO SCH (08:54)
[2017-03-28] MEDS: GABAPENTIN 300 MG CAP PO SCH ×3 (08:54→16:21)
[2017-03-28] MEDS: METOPROLOL TARTRATE 25 MG TAB PO SCH ×2 (08:54→21:42)
[2017-03-28] MEDS: ASPIRIN 81 MG CHEW TAB CHEW SCH (08:54)
[2017-03-28] MEDS ORDERED: NICOTINE 21 MG/24 HR PATCH T-DERMAL SCH (09:00)
[2017-03-28] MEDS: INSULIN HUMAN NPH 1,000 UNITS/10 ML VIAL SQ SCH ×2 (09:00→21:42)
[2017-03-28] MEDS: SODIUM CHLORIDE 0.9% FLUSH 10 ML FLUSH IV FLUSH SCH ×2 (09:23→21:45)
[2017-03-28] MEDS ORDERED: METOCLOPRAMIDE HCL 10 MG/2 ML VIAL ONE (11:25)
--- NOTE | 2017-03-28 12:52 | RADRPT ---
EXAM DATE/TIME: 03/28/2017 09:46 [place] COMPARISON: No previous studies available for comparison. INDICATIONS : Nausea and vomiting with abdominal pain. DOSE: 1.0 mCi Tc99m Sulfur Colloid Labeled Whole egg PO MEDICATONS: 1.) 5 mg Reglan IV at 90 minutes IMAGIN hrs MEDICAL HISTORY : Hepatitis C. Cirrhosis. SURGICAL HISTORY : Coronary artery stent. Cholecystectomy. ENCOUNTER: Initial ACUITY: 2 days PAIN SCALE: 6/10 LOCATION: Abdomen. TECHNIQUE: Following the oral ingestion of radiotracer-labeled meal, dynamic sequential images in the OSCAR projec tion were acquired with simultaneous computer acquisition. The data set was decay-corrected. FINDINGS: LAG PHASE: There is 20 minutes before onset of gastric emptying. EMPTYING: There is poor delayed gastric emptying from the stomach. Only 20% of tracer activity is out of the st omach by 65 minutes.. (Normal for this lab is 45- 90 minutes.) INTERVENTION: No intervention CONCLUSION: Delayed gastric emptying. Pepe Saha MD on March 28, 2017 at 12:50 Board Certified Radiologist. This report was verified electronically.
--- NOTE | 2017-03-28 13:05 | HHI.PR ---
Subjective Remarks The pt was seen following the gastric emptying study. Still has chest pain. Does not recall his sausage stringer. He would like to know when to expect discharge. Discussed with nursing. Objective Vitals Vital Signs Date Time Temp Pulse Resp B/P (MAP) Pulse Ox O2 Delivery O2 Flow Rate FiO2 03/28/17 08:00 97.4 91 18 144/90 (108) 98 03/28/17 04:00 97.6 97 16 160/92 (114) 98 03/28/17 00:00 97.2 88 16 163/99 (120) 98 03/27/17 20:00 96.6 81 17 161/92 (115) 100 03/27/17 16:00 95.8 92 18 152/97 (115) 100 I/O 03/27/17 03/27/17 03/27/17 03/28/17 03/28/17 03/28/17 07:00 15:00 23:00 07:00 15:00 23:00 Intake Total 0 ml 600 ml 480 ml 480 ml Output Total 800 ml Balance 0 ml 600 ml 480 ml -320 ml Intake Oral 0 ml 600 ml 480 ml 480 ml Output Urine Total 800 ml # Voids 1 3 3 # Bowel Movements 0 0 0 0 Result Diagram: 03/27/17 0140 03/27/17 0140 Imaging Current Medications Medications (Trade) Dose Ordered Sig/Shae Route Start Time Stop Time Status Last Admin (NS Flush) 2 ml BID IV FLUSH 03/27/17 09:00 03/28/17 09:23 (NS Flush) 2 ml UNSCH PRN IV FLUSH 03/26/17 21:15 (Nitroglycerin 2% Oint) 1 inch Q6HR TOP 03/27/17 00:00 03/27/17 17:06 (Tylenol) 500 mg Q4H PRN PO 03/26/17 21:15 (Morphine Inj) 2 mg Q3HR PRN IV PUSH 03/26/17 21:15 03/28/17 12:13 (Heparin Inj) 5,000 units Q8HR SQ 03/26/17 22:00 03/28/17 12:14 (D50w (Vial) Inj) 50 ml UNSCH PRN IV PUSH 03/26/17 21:15 (Glucagon Inj) 1 mg UNSCH PRN OTHER 03/26/17 21:15 (NovoLOG SUPPLEMENTAL SCALE) 1 ACHS SLIDING SCALE SQ 03/27/17 08:00 03/27/17 20:38 Sodium Chloride 1,000 ml @ 75 mls/hr [id number] IV 03/26/17 23:00 03/27/17 12:20 (Aspirin Chew) 81 mg DAILY CHEW 03/27/17 09:00 03/28/17 08:54 (Plavix) 75 mg DAILY PO 03/27/17 09:00 03/28/17 08:54 (Lopressor) 25 mg BID PO 03/27/17 09:00 03/28/17 08:54 (NovoLIN N INJ) 10 units DAILY SQ 03/27/17 12:00 03/27/17 13:03 (Neurontin) 600 mg TID PO 03/27/17 18:00 03/28/17 12:13 (Roxicodone) 5 mg Q4H PRN PO 03/27/17 14:45 03/28/17 09:24 (Habitrol 21 Mg Patch.24 Hr) 1 patch DAILY T-DERMAL 03/28/17 09:00 03/28/17 08:55 Miscellaneous Information 1 HS T-DERMAL 03/28/17 21:00 (Protonix Inj) 40 mg Q12H IV PUSH 03/27/17 18:00 03/28/17 05:17 (NovoLIN N INJ) 5 units HS SQ 03/28/17 21:00 UNV Objective Remarks GENERAL: Resting comfortably. SKIN: No rashes, ecchymoses or lesions. Cool and dry. HEAD: Atraumatic. Normocephalic. No temporal or scalp tenderness. EYES: Pupils equal round and reactive. Extraocular motions intact. No scleral icterus. No injection or drainage. ENT: Nose without bleeding, purulent drainage or septal hematoma. Throat without erythema, tonsillar hypertrophy or exudate. Uvula midline. Airway patent. NECK: Trachea midline. No JVD or lymphadenopathy. Supple, nontender, no meningeal signs. CARDIOVASCULAR: Regular rate and rhythm without murmurs, gallops, or rubs. RESPIRATORY: Clear to auscultation. Breath sounds equal bilaterally. No wheezes , rales, or rhonchi. GASTROINTESTINAL: Abdomen soft, tender to palpation in the epigastric area. Nondistended. No peritoneal signs. No guarding. No palpable masses. MUSCULOSKELETAL: Extremities without clubbing, cyanosis, or edema. Bilateral lower extremity tenderness. NEUROLOGICAL: Awake and alert. Cranial nerves II through XII intact. Motor and sensory grossly within normal limits. Normal speech. PSYCH: Mood and affect appropriate. Medications and IVs Current Medications Medications (Trade) Dose Ordered Sig/Shae Route Start Time Stop Time Status Last Admin (NS Flush) 2 ml BID IV FLUSH 03/27/17 09:00 03/28/17 09:23 (NS Flush) 2 ml UNSCH PRN IV FLUSH 03/26/17 21:15 (Nitroglycerin 2% Oint) 1 inch Q6HR TOP 03/27/17 00:00 03/27/17 17:06 (Tylenol) 500 mg Q4H PRN PO 03/26/17 21:15 (Morphine Inj) 2 mg Q3HR PRN IV PUSH 03/26/17 21:15 03/28/17 12:13 (Heparin Inj) 5,000 units Q8HR SQ 03/26/17 22:00 03/28/17 12:14 (D50w (Vial) Inj) 50 ml UNSCH PRN IV PUSH 03/26/17 21:15 (Glucagon Inj) 1 mg UNSCH PRN OTHER 03/26/17 21:15 (NovoLOG SUPPLEMENTAL SCALE) 1 ACHS SLIDING SCALE SQ 03/27/17 08:00 03/27/17 20:38 Sodium Chloride 1,000 ml @ 75 mls/hr [id number] IV 03/26/17 23:00 03/27/17 12:20 (Aspirin Chew) 81 mg DAILY CHEW 03/27/17 09:00 03/28/17 08:54 (Plavix) 75 mg DAILY PO 03/27/17 09:00 03/28/17 08:54 (Lopressor) 25 mg BID PO 03/27/17 09:00 03/28/17 08:54 (NovoLIN N INJ) 10 units DAILY SQ 03/27/17 12:00 03/27/17 13:03 (Neurontin) 600 mg TID PO 03/27/17 18:00 03/28/17 12:13 (Roxicodone) 5 mg Q4H PRN PO 03/27/17 14:45 03/28/17 09:24 (Habitrol 21 Mg Patch.24 Hr) 1 patch DAILY T-DERMAL 03/28/17 09:00 03/28/17 08:55 Miscellaneous Information 1 HS T-DERMAL 03/28/17 21:00 (Protonix Inj) 40 mg Q12H IV PUSH 03/27/17 18:00 03/28/17 05:17 (NovoLIN N INJ) 5 units HS SQ 03/28/17 21:00 UNV A/P Assessment and Plan 46-year-old male with a past medical history significant for CAD (started one month ago) hep C cirrhosis and uncontrolled diabetes mellitus presents to the emergency department with severe chest and abdominal pain and hyperglycemia. Chest pain with history of CAD Per patient, pain is similar as it was 1 month ago when he had a stent placed. EKG with normal sinus rhythm. Trops flat. May be s/t GI complaints. Nitropatch Morphine for pain - cardiology consult as pt still has chest pain and recent stent. Hyperglycemia/uncontrolled diabetes mellitus Patient given 10 units insulin in the ED with blood sugar drop to 439 Beta hydroxybutyrate pending No anion gap Sliding scale insulin every 4 hours Per patient, he cannot afford his home NovoLog 70/30 and has been attempting to control his blood sugars with only Humalog. He states he does not know what his blood sugars normally run because his meter just reads "high". A1c pending Start NPH 10 units daily and 5 units HS and consult the ict educator Hepatitis C cirrhosis/portal hypertension/varices Patient with transaminitis and elevated alkaline phosphatase Failed interferon treatment in 2002 Gastroenterology consulted [facility] with delayed emptying. Follow up with GI. GERD Patient reports he had an EGD 1 month ago in [facility] that was significant for severe reflux disease Continue PPI. - GI following. SI/ Anxiety The pt endorses SI. - psych consult pending. PPx: Heparin Discharge Planning Awaiting cardiology Jarrett Virk DO Mar 28, 2017 13:05
[2017-03-28 13:56] LABS: AUTOMATED NEUTROPHIL # 1.9 TH/MM3 (1.8-7.7); BASOPHIL % 0.7 % (0.0-2.0); EOSINOPHIL # 0.2 TH/MM3 (0-0.4); EOSINOPHIL % 3.9 % (0.0-4.0); HEMATOCRIT 41.7 % (39.0-51.0); LYMPH % 49.8 % (9.0-44.0); LYMPHOCYTE # 2.5 TH/MM3 (1.0-4.8); MEAN CELL VOLUME 94.9 FL (80.0-100.0); MEAN CORPUSCULAR HEMOGLOBIN 33.2 PG (27.0-34.0); MONO % 8.9 % (0.0-8.0); NEUT % 36.7 % (16.0-70.0); PLATELET COUNT 88 TH/MM3 (150-450); RED CELL DISTRIBUTION WIDTH 13.6 % (11.6-17.2); WHITE BLOOD COUNT 5.1 TH/MM3 (4.0-11.0)
--- NOTE | 2017-03-28 13:56 | PD.PSY.CON ---
Provisional Diagnosis Admission Date Mar 26, 2017 at 21:11 History of Present Illness Service Psychiatry Consult Requested By Medical team Reason for Consult Suicidal ideation Primary Care Physician No Primary Care Physician Past Family Social History Coded Allergies: No Known Allergies (Unverified , 03/26/17) Reported Medications Metoprolol Tartrate (Metoprolol Tartrate) 25 Mg Tab, 25 MG PO BID, #60 TAB 0 Refills 03/26/17 Insulin Human Isophane-Regular 70-30 Inj (Novolin 70-30 Inj) 1,000 Unit/10 Ml Vial, 10 UNITS SQ for Blood Sugar Management, ML 0 Refills 03/26/17 Insulin Aspart Inj (Novolog Inj) 1,000 Unit/10 Ml Vial, 0 SQ DIRECTED for Blood Sugar Management, #10 ML 0 Refills Sliding Scale as directed. 03/26/17 Gabapentin (Gabapentin) 300 Mg Cap, 300 MG PO TID, #90 CAP 0 Refills 03/26/17 Famotidine (Famotidine) 40 Mg Tab, 40 MG PO HS, #30 TAB 0 Refills 03/26/17 Clopidogrel (Clopidogrel) 75 Mg Tab, 75 MG PO DAILY for Blood Clot Prevention, # 30 TAB 0 Refills 03/26/17 Aspirin (Aspirin) 81 Mg Chew, 81 MG CHEW DAILY, TAB 0 Refills 03/26/17 Hydrocodone-Acetaminophen (Hydrocodone-Acetaminophen) 5-325 mg Tab, 1 TAB PO TID Y for PAIN, TAB 0 Refills 03/26/17 Current Medications Medications (Trade) Dose Ordered Sig/Shae Route Start Time Stop Time Status Last Admin (NS Flush) 2 ml BID IV FLUSH 03/27/17 09:00 03/28/17 09:23 (NS Flush) 2 ml UNSCH PRN IV FLUSH 03/26/17 21:15 (Nitroglycerin 2% Oint) 1 inch Q6HR TOP 03/27/17 00:00 03/27/17 17:06 (Tylenol) 500 mg Q4H PRN PO 03/26/17 21:15 (Morphine Inj) 2 mg Q3HR PRN IV PUSH 03/26/17 21:15 03/28/17 12:13 (Heparin Inj) 5,000 units Q8HR SQ 03/26/17 22:00 03/28/17 12:14 (D50w (Vial) Inj) 50 ml UNSCH PRN IV PUSH 03/26/17 21:15 (Glucagon Inj) 1 mg UNSCH PRN OTHER 03/26/17 21:15 (NovoLOG SUPPLEMENTAL SCALE) 1 ACHS SLIDING SCALE SQ 03/27/17 08:00 03/27/17 20:38 Sodium Chloride 1,000 ml @ 75 mls/hr [id number] IV 03/26/17 23:00 03/27/17 12:20 (Aspirin Chew) 81 mg DAILY CHEW 03/27/17 09:00 03/28/17 08:54 (Plavix) 75 mg DAILY PO 03/27/17 09:00 03/28/17 08:54 (Lopressor) 25 mg BID PO 03/27/17 09:00 03/28/17 08:54 (NovoLIN N INJ) 10 units DAILY SQ 03/27/17 12:00 03/27/17 13:03 (Neurontin) 600 mg TID PO 03/27/17 18:00 03/28/17 12:13 (Roxicodone) 5 mg Q4H PRN PO 03/27/17 14:45 03/28/17 09:24 (Habitrol 21 Mg Patch.24 Hr) 1 patch DAILY T-DERMAL 03/28/17 09:00 03/28/17 08:55 Miscellaneous Information 1 HS T-DERMAL 03/28/17 21:00 (Protonix Inj) 40 mg Q12H IV PUSH 03/27/17 18:00 03/28/17 05:17 (NovoLIN N INJ) 5 units HS SQ 03/28/17 21:00 Physical Exam Vital Signs Vital Signs Date Time Temp Pulse Resp B/P (MAP) Pulse Ox O2 Delivery O2 Flow Rate FiO2 03/28/17 08:00 97.4 91 18 144/90 (108) 98 03/26/17 18:09 Room Air I/O 03/28/17 03/28/17 03/29/17 08:00 16:00 00:00 Intake Total 480 ml Output Total 800 ml Balance -320 ml Lab Results Test 03/28/17 12:56 Assessment & Plan Problem List: (1) Poorly controlled diabetes mellitus ICD Codes: E11.65 - Type 2 diabetes mellitus with hyperglycemia Status: Acute Assessment & Plan: Patient was visited by psychiatry team, but she was out in a medical procedure. Case was discussed with the nurse. Will come later for psychiatric evaluation. Assessment & Plan Estimated LOS: Murtaza Young MD Mar 28, 2017 13:55
[2017-03-28 13:58] LABS: HEMO FLAGS AUTO DIFF
[2017-03-28 14:04] LABS: PROTHROMBIN TIME - PATIENT 10.7 SEC (9.8-11.6)
[2017-03-28 14:38] LABS: BICARBONATE 27.5 MEQ/L (21.0-32.0); MAGNESIUM 1.6 MG/DL (1.5-2.5); POTASSIUM 4.2 MEQ/L (3.5-5.1)
[2017-03-28 14:43] LABS: INDIRECT BILIRUBIN 0.6 MG/DL (0.0-0.8); TOTAL BILIRUBIN ADULT 1.1 MG/DL (0.2-1.0)
[2017-03-28 15:07] LABS: PLATELET ESTIMATE SMEAR LOW (NORMAL); PLATELET MORPHOLOGY NORMAL (NORMAL); SCAN/DIFF AUTO DIFF CONFIRMED
--- NOTE | 2017-03-28 16:39 | MB ---
cc: ALEX UGARTE DATE OF CONSULTATION: 03/28/2017 REASON FOR CONSULTATION: Evaluation of chest pain. HISTORY OF PRESENT ILLNESS: Quan Johnson is a 46 year-old man who saw my colleague, Dr. Albert Callejas, in January for unstable angina. He was having substernal chest discomfort, radiation to the left arm and left side of his neck. He ended up undergoing a cardiac catheterization showing an 80% proximal right coronary stenosis. He had a 4.0 x 13 mm bare metal integrity stent placed. He has been on 81 mg aspirin and clopidogrel since that time. Also of note is during that hospital stay he underwent upper endoscopy. The upper endoscopy was notable for findings of diffuse esophagitis, gastritis and duodenitis of which he was treated with intravenous PPI agent. He has not had any follow up with a offensive coordinator since that stent procedue. He comes in now saying that he had severe chest pain Monday night similar to what he had prior to the stent, substernal pressure with radiation to the left arm and tingling to his left hand. He has been having intermittent ongoing pain since that time. The concerning thing is that we cannot tell if it is GI or cardiac. He has known Hepatitis C and cirrhosis. He has esophageal varices. He had ruptured variceal bleed in 2009 and had banding procedure from what he prescribes. He is concerned, however, because the chest pain he has is very similar to what he had prior to the stent. He denies any syncope or presyncope. He states he has not drank or used any drugs in six years. He continues to smoke but is trying to cut down. CURRENT MEDICATIONS: 1. Oxycodone. 2. Subcu heparin. 3. Morphine. 4. Gabapentin 5. Insulin. 6. Nicotine patch 7. Aspirin 81 milligrams 8. Clopidogrel 75 milligrams. 9. Metoprolol 25 b.i.d. 10. Protonix. 11. Insulin. 12. Nitro paste one inch q6 hours. PAST MEDICAL HISTORY: 1. Acid reflux. 2. Coronary artery disease. 3. Cirrhosis. 4. Hepatitis C. 5. Diabetes. 6. Peripheral neuropathy. PAST SURGICAL HISTORY: 1. Esophageal variceal bleed with procedure in 2009. 2. Cholecystectomy in the past. 3. Cardiac catheterization. ALLERGIES: None known. FAMILY HISTORY: He was adopted. SOCIAL HISTORY: He smoked one pack per day for 32 years. He used drinks and alcohol prior to 2011. PHYSICAL EXAMINATION: A well-developed, alert white male, appears oriented. Appropriate mood and affect. HEENT: Unremarkable. NECK: No JVD. No bruits. CHEST: Clear to auscultation. CARDIAC: Normal first and second heart sounds, regular rate and rhythm. No murmurs or gallops. ABDOMEN: Soft. Could not appreciate any tenderness. EXTREMITIES: No clubbing, cyanosis or edema. Pulses are intact. EKG: does not show ischemic changes. Troponins are negative. LABORATORY DATA: Includes hematocrit of 41.7, creatinine 0.57, liver tests are elevated. Chest x-ray: Showed no acute disease. IMPRESSION 46 year-old man status post a 4.0 x 30 mm integrity stent in his right coronary artery February 13, 2017. He is now having anginal symptoms similar to what he had before. Alternatively it could be GI in etiology. He is receiving multiple medications including aspirin, Plavix, but also PPI. RECOMMENDATIONS: I think it would be best if tomorrow morning we went ahead and did a cardiac catheterization. If we find that his stent is patent, at that point we could discontinue the aspirin, since esophagitis would be the second possibility for his severe chest pain. Will also check verify now test to see how his Plavix activity is. Discussed the option of doing nuclear stress test which I do not will be as definitive and as helpful in this situation. He is agreeable to the cardiac catheterization and aware of the risks of stroke, heart attack, , bleeding, etc. We have this scheduled for tomorrow morning. Further therapy to be determined. MD DAVID Mai/OSIEL /3:36 PM /4:22 PM
[2017-03-28] MEDS ORDERED: diphenhydrAMINE HCL 25 MG CAP PO SCH (16:45)
[2017-03-28] MEDS ORDERED: DIAZEPAM 5 MG TAB PO SCH (17:00)
[2017-03-28] MEDS ORDERED: PILL SPLITTER OTHER PRN (17:00)
[2017-03-28 18:53] LABS: P2Y12 REACTION UNITS (PRU) 121 PRU (194-418)
[2017-03-28] MEDS ORDERED: METOPROLOL TARTRATE 25 MG TAB PO PRN (19:30)
[2017-03-28] MEDS ORDERED: SODIUM CHLORID 0.9% 500 ML IV PRN (19:30)
[2017-03-28] MEDS ORDERED: POVIDONE IODINE 5% (ANTISEPSIS KIT) 4 APPLICATIONS EACH NARE PRN (19:30)
[2017-03-28] MEDS ORDERED: LACTATED RINGER'S 1000 ML IV PRN (19:30)
[2017-03-28] MEDS ORDERED: INSULIN HUMAN REGULAR 1,000 UNITS/10 ML VIAL SQ PRN (19:30)
[2017-03-28] MEDS ORDERED: CHLORHEXIDINE GLUCONATE 2 % 1 PACK (2 CLOTHS) TOPICAL PRN (19:30)
[2017-03-28] MEDS: REMOVE OLD NICODERM (NICOTINE) PATCH T-DERMAL SCH (21:45)
[2017-03-29] VITALS (7 sets, daily range): BP systolic 126–146; BP diastolic 73–90; PULSE 77–90; RESP 18–20; TEMP 95.8–97.6; O2SAT 98–100
[2017-03-29] MEDS: NITROGLYCERIN 2% OINT 1 GM PACKET TOP SCH ×4 (00:13→17:21)
[2017-03-29] MEDS: MORPHINE SULFATE 4 MG/ML INJ IV PUSH PRN ×6 (00:33→22:02)
[2017-03-29] MEDS: HEPARIN SODIUM - SQ 10,000 UNITS/ML VIAL SQ SCH ×3 (06:00→21:27)
[2017-03-29] MEDS: PANTOPRAZOLE SODIUM 40 MG VIAL IV PUSH SCH ×2 (06:15→15:58)
[2017-03-29] MEDS: SODIUM CHLOR 0.9% 1000 ML INJ 1,000 ML IV SCH ×3 (06:19→19:30)
[2017-03-29 06:53] LABS: BASOPHIL % 0.5 % (0.0-2.0); EOSINOPHIL # 0.2 TH/MM3 (0-0.4); EOSINOPHIL % 4.1 % (0.0-4.0); HEMATOCRIT 40.5 % (39.0-51.0); LYMPHOCYTE # 2.1 TH/MM3 (1.0-4.8); MEAN CELL VOLUME 94.3 FL (80.0-100.0); MEAN CORPUSCULAR HEMOGLOBIN 33.5 PG (27.0-34.0); MEAN CORPUSCULAR HGB CONC 35.6 % (32.0-36.0); MONO % 10.5 % (0.0-8.0); NEUT % 40.9 % (16.0-70.0); PLATELET COUNT 85 TH/MM3 (150-450); RED BLOOD COUNT 4.29 MIL/MM3 (4.50-5.90); RED CELL DISTRIBUTION WIDTH 13.8 % (11.6-17.2); WHITE BLOOD COUNT 4.8 TH/MM3 (4.0-11.0)
[2017-03-29 07:08] LABS: POTASSIUM 3.9 MEQ/L (3.5-5.1)
[2017-03-29] MEDS ORDERED: ONDANSETRON HCL 4 MG/2 ML VIAL ONE (07:16)
[2017-03-29 07:18] LABS: HEMO FLAGS AUTO DIFF
[2017-03-29] MEDS ORDERED: HEPARIN SODIUM - IV 10,000 UNITS/10 ML VIAL ONE (07:18)
[2017-03-29] MEDS ORDERED: HEPARIN-NS/PF INJ 500 ML ONE (07:18)
[2017-03-29] MEDS ORDERED: NITROGLYCERIN INJ 5 ML ONE (07:18)
[2017-03-29] MEDS ORDERED: VERAPAMIL HCL 5 MG/2 ML VIAL ONE (07:18)
[2017-03-29] MEDS ORDERED: MIDAZOLAM HCL 2 MG/2 ML VIAL ONE (07:18)
[2017-03-29] MEDS: INSULIN ASPART SUPPLEMENTAL SCALE SQ SCH ×4 (08:00→21:00)
[2017-03-29 08:12] LABS: PLATELET ESTIMATE SMEAR LOW (NORMAL); PLATELET MORPHOLOGY NORMAL (NORMAL); SCAN/DIFF AUTO DIFF CONFIRMED
[2017-03-29] MEDS ORDERED: MISC INFORMATION XX ONE (08:15)
--- NOTE | 2017-03-29 08:39 | MA ---
cc: ALEX UGARTE M.D. DATE: 03/29/2017 PROCEDURE PERFORMED Right radial arterial access, left heart catheterization, left ventriculography, coronary angiography. BRIEF HISTORY Quan Johnson is a 46-year-old man who underwent bare metal stenting of the proximal right coronary artery February 13, 2017. He is admitted and has been noted to have refractory chest pain. Also of note, during his last hospitalization he had an upper endoscopy showing gastritis and esophagitis. DESCRIPTION OF PROCEDURE The patient was brought to the cardiac catheter builder in a fasting state. Using 1% lidocaine for local anesthesia a Terumo slender sheath was inserted in the right radial artery without difficulty. He received 1 mg of IV Versed and 50 mcg of IV Fentanyl prior to this. Right coronary angiography was completed using a JR-5 Pashto catheter. Left coronary angiography was performed using a JL-5 6-Pashto catheter. An angled pigtail catheter was used to measure left ventricular pressure followed by left ventriculography and then a pullback. The sheath is now removed with a Terumo band placed. A standard cocktail was administered for the case which included 2500 of heparin, 200 mcg of nitro and 2-1/2 mg of verapamil through the sheath. There were no complications. Estimated blood loss was 5 ccs. FINDINGS 1. Hemodynamics. Left ventricular pressure is 125/4 with end-diastolic pressure of 13. Aortic pressure is 126/78 with a mean of 100. There is no gradient during pullback from the left ventricle to the aorta. 2. Left ventriculography. Left ventriculography shows a symmetrically sheila left ventricle with estimated ejection fraction of 65%. There is no mitral regurgitation and there are no wall motion abnormalities. 3. Coronary angiography. Left coronary artery is large caliber. Left main coronary artery is short and normal-appearance. Left anterior descending artery has a smooth 40% stenosis in the midsection just after the first septal getter filler branch. The remainder of the LAD appears normal. Circumflex artery has about 20% proximal irregularity in two places. The major marginal branch appears normal. The right coronary artery is dominant and has a visible stent in its proximal segment. There is about 10% restenosis within the stent, otherwise looks excellent, widely patent. CONCLUSION 1. Normal hemodynamics. 2. Normal left ventricular function. 3. Mild coronary artery disease and no evidence for problems after the previous right coronary artery stent. RECOMMENDATIONS I think his symptoms are from esophagitis. I recommend stopping aspirin. Will continue clopidogrel. Since the stent is less than 2 months old, will try to go at least 3 months with the Plavix as long as it is not causing any bleeding problems. MD DAVID Mai/MARITA /8:18 AM 8:24 AM
[2017-03-29] MEDS: CLOPIDOGREL 75 MG TAB PO SCH (09:00)
[2017-03-29] MEDS ORDERED: SODIUM CHLOR 0.9% 1000 ML INJ 1,000 ML IV SCH (09:00)
[2017-03-29] MEDS: SODIUM CHLORIDE 0.9% FLUSH 10 ML FLUSH IV FLUSH SCH ×2 (09:00→20:29)
[2017-03-29] MEDS: INSULIN HUMAN NPH 1,000 UNITS/10 ML VIAL SQ SCH ×2 (09:00→21:28)
--- NOTE | 2017-03-29 09:17 | CATHPROC ---
[employer] HIS Report Study Information Study Number Admission Scheduled Start Study Start [id number] 03/26/2017 03/29/2017 Mar 29 2017 7:29AM Referring Institution Admit Source Facility Department [address] [facility] Positive Printer Operator Physician and Clinical Staff Initial Eleazar Carmichael Oracle Architect Johnna Foss,RN Recorder Johnna Vasquez,RT(R) Scrub Lana Lester,RT(R) Procedures Performed Procedure Location (Site) Vessel Name Angiogram LV LV Ventricle Coronary Angiograms LCA Left Coronary Coronary Angiograms RCA Right Coronary L Heart Cath Wire insertion Radial (right) Radial Art. Equipment Time Performance Test Architect Description Size Mfg Part Number Used/Scraped TRANSDUCER, TRUWAVE [id number] 07:32 SOSA YANEZ * Used W/STOCKCOCK *[id number] *[id number] *[id number] PIGTAIL ANG. 145 INFINITI 534-652S CATHETER *[id number] 07:32 MALLINCKRODT SYRINGE, ANGIOMAT 150ML 150ML *[id number] Used 2SUB [id number] 07:32 [employer] INDUSTRIES PACK, CCL CUSTOM * Used *[id number] 07:32 Pumant SUPPORT, ARTERIAL ADULT 64436 *[id number] Used [id number] 07:32 [employer] PACER PEN, SKIN DUAL W/ RULER * Used *[id number] BAND, RADIAL COMPRESSION TR [id number] 08:01 [employer] MEDICAL 29CM Used LARGE 29 *[id number] 07:42 MERIT MEDICAL WIRE, EXCHANGE 260CM 3MMJ 260CM Used *[id number] 07:32 [employer]IT MEDICAL WIRE, EXCHANGE 260CM 3MMJ 260CM Used *[id number] 07:32 NAMIC MANIFOLD, 4 PORT * Used *[id number] 07:32 NYCOMED OMNIPAQUE, 350 MG, 100ML 100ML [id number] Used 07:52 NYCOMED OMNIPAQUE, 350 MG, 150ML 150ML [id number] Used [id number] 07:32 GOMES MEDICAL BLANKET,WARM AIR CCL * Used *[id number] 07:32 [employer] JELCO NEEDLE 4056 *[id number] Used SHEATH, FR6 TRANSRADIAL RM*[id number] 07:32 TERLocalView MEDICAL FR 6 Used SLENDER 10CM *[id number] History: Allergies Allergy Reaction No Known Allergies History: Risk Factors Family History of Hypertension Dyslipidemia Previous HI Previous Heart Failure Premature CAD Yes Yes No No No Prior Valve Prior PCI Prior PCIDate Prior CABG Surgery No Yes 02/13/2017 No Cerebrovascular Peripheral Artery Chronic Lung On Dialysis Diabetes Diabetes Therapy Disease Disease Disease No No Yes Yes Yes Insulin History: Symptoms/Diagnosis Selection Items Chest pain History: CV Disease Selection Items Known CAD History: Stress Tests Stress or Imaging Studies Performed No History: Other Disease Selection Items HTN History: Other Current Smoker Method Yes Cigarettes Labs Hgb (g/dl) Hct (%) WBC (l/cumm) Platelets (thousands) 11.60-17.00 35.00-51.00 4.00-11.00 150.00-450.00 14.6 41.7 5.1 88 Glucose (mg/dl) BUN (mg/dl) Creatinine (mg/dl) BUN:Creatinine (1:x) 74.00-106.00 7.00-18.00 0.50-1.30 10.00-20.00 227 10 0.6 16.7 Na (meq/l) K (meq/l) 136.00-145.00 3.50-5.10 136 4.2 Troponin I (ng/ml) CPK (u/l) CPK-MB (ng/ML) 0.02-0.05 26.00-308.00 0.50-3.60 0.02 98 Not Drawn Medication Medication Total Dose (Bolus/Oral) Medication Total Dosage/Unit 1% XYLOCAINE 20 mL FENTANYL 50 mcg RADIAL COCKTAIL 5 mL (Bolus) VERSED 2 mg ZOFRAN 4 mg Medications (Bolus/Oral) Medication Time Given Dosage/Unit Administered By Reason ZOFRAN 03/29/2017 7:20:44 AM 4 mg Johnna Foss Patient arrived on 4 mg ZOFRAN given by Johnna Foss RN via Central IV. Ordered by Eleazar Waggoner. VERSED 03/29/2017 7:38:00 AM 2 mg Johnna Foss 2 mg VERSED given in lab by Johnna Foss, MAR via Peripheral IV. Ordered by Eleazar Waggoner. FENTANYL 03/29/2017 7:40:12 AM 50 mcg Johnna Foss 50 mcg FENTANYL given in lab by Johnna Foss, RN via Peripheral IV. Ordered by Eleazar Waggoner. 1% XYLOCAINE 03/29/2017 7:41:18 AM 20 mL Eleazar Waggoner 20 mL 1% XYLOCAINE given in lab by Eleazar Waggoner in Right Radial via Subcutaneous. Ordered by Eleazar Waggoner. Ntg 200mcg Verapamil 2.5mg Heparin RADIAL COCKTAIL 03/29/2017 7:45:18 AM 5 mL (Bolus) Eleazar Waggoner 2500U 5 mL (Bolus) RADIAL COCKTAIL given in lab by Eleazar Waggoner via Radial. Using [Solution Name]. Ordered by Eleazar Waggoner. Reason: Ntg 200mcg Verapamil 2.5mg Heparin 2500U. Medication (Drip) Medication Time Given Dosage/Unit Concentration/Unit Diluent (ml) Solution IV Solutions 03/29/2017 7:32:22 AM 0 mL (IV) 1000 NaCl .9 Patient arrived on IV Solutions in Left Forearm via Peripheral IV. Pump/Drip Flow = 20 ml/hr using Na Cl .9. Ordered by Eleazar Waggoner. Initial Case Assessment Cardiovascular HR Rhythm NIBP Chest Pain 85 REG 149/72 0 Edema Present Skin color Skin None Normal Warm Circulatory - Right Pulses Dorsalis Pedis Femoral Radial 3 3 3 Scale (0,1,2,3,4,d) Scale (0,1,2,3,4,d) Circulatory - Lower Extremities Color Lower Right Normal Neurological State Oriented to time-place- Alert Moves all extremities person Respiration - General Respiration Rate SpO2 (%) (B/min) 8 100 Final Case Assessment Cardiovascular HR Rhythm NIBP Chest Pain 84 REG 144/69 0 Edema Present Skin color Skin None Normal Warm Circulatory - Right Pulses Dorsalis Pedis Femoral Radial 3 3 3 Scale (0,1,2,3,4,d) Scale (0,1,2,3,4,d) Circulatory - Lower Extremities Color Lower Right Normal Neurological State Oriented to time-place- Alert Moves all extremities person Respiration - General Respiration Rate SpO2 (%) (B/min) 8 99 Chronological Log Time Study Chronological Log 7:15:16 Patient arrived via Bed. 7:20:44 Patient arrived on 4 mg ZOFRAN given by Johnna Foss RN via Central IV. Ordered by Eleazar Rasmussen. 7:29:21 Patient Name, D.O.B, / Armband Verified By R.N. 7:29:23 Consent signed by the physician and the patient and verified by the Positive Printer Operator staff. 7:29:23 Pre-op and post- op instructions given; patient acknowledges understanding of instructions. 7:29:24 Verbal Stimulation=2 Physical Stimulation=2 Airway=2 Respiration=2 TOTAL=8. (0=absent, 1=li mited, 2=present) 7:29:27 Allens test performed on the right radial and ulnar artery. 7:29:30 Patient has been NPO for More than 6Hrs. 7:: Skin Breakdown-NONE 7:: Patient Warmer Placed on the Table. Vitals capture started with the following parameters, Patient=Adult, Interval=5 min, Initial Pr oejtrg=157 mmHg, 7::36 Deflation Rate=5 mmHg, Cuff placed on Left LEG 7::45 Reference ECG taken 7:30:48 HR=86 bpm, FFYI=957/72 mmhg, SpO2=99.0 %, Resp=9 B/min, Pain=0, Shayla=10, Landa=2 7:30:52 BLOOD SUGAR 227 7:32:12 A # 20 IV was noted in the Forearm (left). Grade = 0 Patient arrived on IV Solutions in Left Forearm via Peripheral IV. Pump/Drip Flow = 20 ml/hr us ing NaCl .9. Ordered by 7:32:22 Eleazar Waggoner. 7:32:41 History and physical on the chart or being dictated. Assessment: Initial Case, HR=85 BPM, Rhythm=REG, IGHC=236/72 mmhg, Chest Pain=0, Edema=None, Color=Normal, Skin = Warm Right Pulses: Naman Ped=3, Femoral=3, Radial=3 7:32:41 Lower Right Extremities: Color=Normal Neurological: State=Alert, Ox3, RUBALCAVA Respiration: Resp=8 B/min, BqP7=421 % 7:33:36 Right Radial and groin(s) prepped with 2% chlorhexidine, and draped after a 3 min. waiting t trish. 7:33:41 MD arrived. 7:35:16 HR=86 bpm, RZBF=732/74 mmhg, SpO2=98.0 %, Resp=8 B/min, Pain=0, Shayla=10, Landa=2 7:35:55 Pressure channel 1 zeroed. Time Out. Correct patient, correct procedure, correct physician, power injector not loaded with contrast with surgical 7:36:38 team present. Time Out Concurred by MD and individual staff in procedure. 7:36:47 Case Start 7:38:00 2 mg VERSED given in lab by Johnna Foss, RN via Peripheral IV. Ordered by Eleazar Waggoner. 7:40:12 50 mcg FENTANYL given in lab by Johnna Foss, RN via Peripheral IV. Ordered by Hugo Waggoner 7:40:19 HR=90 bpm, MCCM=492/69 mmhg, SpO2=99.0 %, Resp=8 B/min, Pain=0, Shayla=10, Landa=2 7:41:11 Verbal Stimulation=2 Physical Stimulation=2 Airway=2 Respiration=2 TOTAL=8. (0=absent, 1=mota ited, 2=present) 7:41:18 20 mL 1% XYLOCAINE given in lab by Eleazar Waggoner in Right Radial via Subcutaneous. Ordered b y Eleazar Waggoner. 7:43:50 Access site was Brachial Artery.RT 7:44:11 A wire was inserted via Radial (right). A SHEATH, FR6 TRANSRADIAL SLENDER 10CM FR 6 was advanced into the Radial (right) using the Cindy mtz 7:44:23 technique. 7:45:18 HR=83 bpm, KLNH=529/61 mmhg, SpO2=97.0 %, Resp=8 B/min, Pain=0, Shayla=10, Landa=2 5 mL (Bolus) RADIAL COCKTAIL given in lab by Eleazar Waggoner via Radial. Using [Solution Name]. Or dered by Edilson 7:45:18 Eleazar. Reason: Ntg 200mcg Verapamil 2.5mg Heparin 2500U. A JR 5.0 INFINITI CATHETER FR 5 was advanced over a wire. OMNIPAQUE, 350 MG, 100ML 100ML was use d for 7:46:19 injections. Recorded Pressure: Ao, HR=82, Condition=Condition 1 7:48:04 (Aorta) Ao 118/82/100 7:48:42 The RCA was injected and visualized at various angles. OMNIPAQUE, 350 MG, 100ML 100ML used. 7:50:17 HR=97 bpm, FCJL=657/72 mmhg, SpO2=96.0 %, Resp=8 B/min, Pain=0, Shayla=10, Landa=2 7:51:43 Catheter was removed OVER JWIRE A JL 3.5 INFINITI CATHETER FR 6 was advanced over a wire. OMNIPAQUE, 350 MG, 100ML 100ML was use d for 7:51:45 injections. 7:52:42 The LCA was injected and visualized at various angles. OMNIPAQUE, 350 MG, 100ML 100ML used. After removing the current catheter a PIGTAIL ANG. 145 INFINITI CATHETER FR 6 was advanced over a WIRE, 7:54:51 EXCHANGE 260CM 3MMJ 260CM. 7:55:22 HR=89 bpm, FYDW=153/65 mmhg, SpO2=98.0 %, Resp=8 B/min, Pain=0, Shayla=10, Landa=2 7:55:48 POWER INJECTOR LOADED NOW BY Winnie FOSS AND VERIFIED BY Celestina LESTER Recorded Pressure: LV, HR=84, Condition=Condition 1 7:57:08 (Left Ventricle) LV 120/4/11 7:58:28 The LV was injected at 10 cc/sec for a total of 30. OMNIPAQUE, 350 MG, 100ML 100ML used. Recorded Pressure: LV, Ao, HR=87, Condition=Condition 1 7:58:59 (Left Ventricle) LV 125/4/13, (Aorta) Ao 126/78/100 7:59:29 Catheter was removed 8:00:17 HR=85 bpm, ZHCP=168/69 mmhg, SpO2=8 %, Resp=0 B/min, Pain=0, Shayla=10, Landa=2 Assessment: Final Case, HR=84 BPM, Rhythm=REG, WGYV=507/69 mmhg, Chest Pain=0, Edema=None, Col or=Normal, Skin = Warm Right Pulses: Naman Ped=3, Femoral=3, Radial=3 8:00:32 Lower Right Extremities: Color=Normal Neurological: State=Alert, Ox3, RUBALCAVA Respiration: Resp=8 B/min, SpO2=99 % 8:01:02 Catheter(s) removed without difficulty Radial Compression Device Used. 11 mLs of air placed in BAND, RADIAL COMPRESSION TR LARGE 29 2 9CM. Affected 8:01:05 hand 98 % O2 saturation. 8:01:25 Case End 8:01:31 Sterile dressing applied to site 8:01:32 No case complications noted. 8:01:35 Cine recording checked. 8:01:38 Bedside Report will be given. 8:01:42 Contrast Scanned 8:01:45 A Left Heart Cath was performed. 8:04:01 PT TO RECOVER IN DOCU THEN TO HIS ROOM 8:05:20 HR=91 bpm, DZBN=414/71 mmhg, SpO2=99.0 %, Resp=7 B/min, Pain=0, Shayla=10, Landa=2 8:09:47 Vitals capture stopped. End Study - Contrast Media Used In Study Contrast Total Opened (mL) Total Used (mL) Total Wasted (mL) Omnipaque 60 60 0 End Study - Maximum Contrast Load Max Contrast Load (mL) 665.2 End Study - Radiation Exposure Fluoro Time (minutes) 4.0 End Study - Sheaths Sheaths Pulled By Sheath Hold Time (min) Lana Lester End Study - Patient Disposition Complications Transferred To No Regular Bed
[2017-03-29] MEDS ORDERED: IOHEXOL 350 MG/ML 100 ML BTL (for Cath Lab) OTHER ONE (09:37)
[2017-03-29] MEDS: GABAPENTIN 300 MG CAP PO SCH ×3 (11:50→18:00)
[2017-03-29] MEDS: METOPROLOL TARTRATE 25 MG TAB PO SCH ×2 (11:51→20:26)
--- NOTE | 2017-03-29 12:21 | HHI.PR ---
Subjective Remarks The patient was seen following catheterization. He had no acute complaints. He said if he was feeling better he would like to be discharged tomorrow. Discussed with nursing. Objective Vitals Vital Signs Date Time Temp Pulse Resp B/P (MAP) Pulse Ox O2 Delivery O2 Flow Rate FiO2 03/29/17 08:15 99 Room Air 03/29/17 06:00 97.6 85 18 126/73 (90) 98 03/29/17 00:00 97.6 83 18 146/90 (108) 100 03/28/17 20:43 82 03/28/17 19:45 96.0 93 18 133/86 (102) 100 03/28/17 16:50 96.9 81 18 137/94 (108) 98 I/O 03/28/17 03/28/17 03/28/17 03/29/17 03/29/17 03/29/17 07:00 15:00 23:00 07:00 15:00 23:00 Intake Total 480 ml 600 ml 480 ml Output Total 800 ml Balance -320 ml 600 ml 480 ml Intake Oral 480 ml 600 ml 480 ml Output Urine Total 800 ml # Voids 4 3 4 # Bowel Movements 0 0 1 Result Diagram: 03/29/17 0630 03/29/17 0630 Imaging Last Impressions Gastric Emptying Nuclear Medicine 03/28/17 0000 Signed Impressions: Service Date/Time: Tuesday, March 28, 2017 09:46 - CONCLUSION: Delayed gastric emptying. Pepe Saha MD Chest X-Ray 03/26/172026 Signed Impressions: Service Date/Time: Sunday, March 26, 2017 20:50 - CONCLUSION: Normal examination. Britton Miranda MD Abdomen/Pelvis CT 03/26/17 0000 Signed Impressions: Service Date/Time: Sunday, March 26, 2017 19:16 - CONCLUSION: 1. Cirrhosis and portal hypertension with numerous varices as described above. Britton Miranda MD Objective Remarks GENERAL: Resting comfortably. SKIN: No rashes, ecchymoses or lesions. Cool and dry. HEAD: Atraumatic. Normocephalic. No temporal or scalp tenderness. EYES: Pupils equal round and reactive. Extraocular motions intact. No scleral icterus. No injection or drainage. ENT: Nose without bleeding, purulent drainage or septal hematoma. Throat without erythema, tonsillar hypertrophy or exudate. Uvula midline. Airway patent. NECK: Trachea midline. No JVD or lymphadenopathy. Supple, nontender, no meningeal signs. CARDIOVASCULAR: Regular rate and rhythm without murmurs, gallops, or rubs. RESPIRATORY: Clear to auscultation. Breath sounds equal bilaterally. No wheezes , rales, or rhonchi. GASTROINTESTINAL: Abdomen soft, tender to palpation in the epigastric area. Nondistended. No peritoneal signs. No guarding. No palpable masses. MUSCULOSKELETAL: Extremities without clubbing, cyanosis, or edema. Bilateral lower extremity tenderness. NEUROLOGICAL: Awake and alert. Cranial nerves II through XII intact. Motor and sensory grossly within normal limits. Normal speech. PSYCH: Mood and affect appropriate. Procedures Cardiac catheterization 03/29/17 Medications and IVs Current Medications Medications (Trade) Dose Ordered Sig/Shae Route Start Time Stop Time Status Last Admin (NS Flush) 2 ml BID IV FLUSH 03/27/17 09:00 03/28/17 21:45 (NS Flush) 2 ml UNSCH PRN IV FLUSH 03/26/17 21:15 (Nitroglycerin 2% Oint) 1 inch Q6HR TOP 03/27/17 00:00 03/29/17 06:13 (Tylenol) 500 mg Q4H PRN PO 03/26/17 21:15 (Morphine Inj) 2 mg Q3HR PRN IV PUSH 03/26/17 21:15 03/29/17 05:10 (Heparin Inj) 5,000 units Q8HR SQ 03/26/17 22:00 03/28/17 21:44 (D50w (Vial) Inj) 50 ml UNSCH PRN IV PUSH 03/26/17 21:15 (Glucagon Inj) 1 mg UNSCH PRN OTHER 03/26/17 21:15 (NovoLOG SUPPLEMENTAL SCALE) 1 ACHS SLIDING SCALE SQ 03/27/17 08:00 03/28/17 21:42 Sodium Chloride 1,000 ml @ 75 mls/hr [id number] IV 03/26/17 23:00 03/27/17 12:20 (Plavix) 75 mg DAILY PO 03/27/17 09:00 03/28/17 08:54 (Lopressor) 25 mg BID PO 03/27/17 09:00 03/29/17 11:51 (NovoLIN N INJ) 10 units DAILY SQ 03/27/17 12:00 03/27/17 13:03 (Neurontin) 600 mg TID PO 03/27/17 18:00 03/29/17 11:50 (Roxicodone) 5 mg Q4H PRN PO 03/27/17 14:45 03/29/17 11:55 Miscellaneous Information 1 HS T-DERMAL 03/28/17 21:00 03/28/17 21:45 (Protonix Inj) 40 mg Q12H IV PUSH 03/27/17 18:00 03/29/17 06:15 (NovoLIN N INJ) 5 units HS SQ 03/28/17 21:00 03/28/17 21:42 Sodium Chloride 1,000 ml @ 30 mls/hr Q24H IV 03/28/17 15:27 04/02/17 15:26 03/29/17 06:19 (Benadryl) 25 mg PICKER AND PACKER PO 03/28/17 16:45 04/01/17 16:44 03/29/17 06:49 (Valium) 2.5 mg PICKER AND PACKER PO 03/28/17 17:00 04/01/17 16:59 03/29/17 06:49 (Pill Splitter) 1 ea UNSCH PRN OTHER 03/28/17 17:00 Lactated Ringer's 1,000 ml @ 30 mls/hr Q24H PRN IV 03/28/17 19:30 03/31/17 19:29 Sodium Chloride 500 ml @ 30 mls/hr [id number] PRN IV 03/28/17 19:30 03/31/17 19:29 (Lopressor) 25 mg PICKER AND PACKER PRN PO 03/28/17 19:30 03/31/17 19:29 (Betadine 5% Antisepsis Kit) 1 applic PICKER AND PACKER PRN EACH NARE 03/28/17 19:30 03/31/17 19:29 (Chlorhexidine 2% Cloth) 3 pack PICKER AND PACKER PRN TOPICAL 03/28/17 19:30 03/31/17 19:29 (NovoLIN R INJ) See Protocol Table ... PICKER AND PACKER PRN SQ 03/28/17 19:30 03/31/17 19:29 (Urecholine) 25 mg Q8HR PO 03/29/17 14:00 UNV (Carafate Liq) 1 gm ACHS PO 03/29/17 17:00 UNV A/P Assessment and Plan 46-year-old male with a past medical history significant for CAD (started one month ago) hep C cirrhosis and uncontrolled diabetes mellitus presents to the emergency department with severe chest and abdominal pain and hyperglycemia. Chest pain with history of CAD Per patient, pain is similar as it was 1 month ago when he had a stent placed. EKG with normal sinus rhythm. Trops flat. May be s/t GI complaints. Cardiology consult appreciated. Status post catheterization which did not show occlusive disease. - Nitropatch - Morphine for pain - Follow with cardiology as an outpatient. - Continue Plavix. Discontinue aspirin per cardiology. Hyperglycemia/uncontrolled diabetes mellitus Patient given 10 units insulin in the ED. No anion gap. A1c 10.9%. - Sliding scale insulin every 4 hours - Per patient, he cannot afford his home NovoLog 70/30 and has been attempting to control his blood sugars with only Humalog. He states he does not know what his blood sugars normally run because his meter just reads "high". A1c pending - Start NPH 10 units daily and 5 units HS and consult the clinical educator Hepatitis C cirrhosis/portal hypertension/varices Patient with transaminitis and elevated alkaline phosphatase Failed interferon treatment in 2002 Gastroenterology consulted - GES with delayed emptying. Medications per GI. GERD Patient reports he had an EGD 1 month ago in [facility] that was significant for severe reflux disease Continue PPI. - GI following. SI/ Anxiety The pt endorses SI. - psych consult pending. PPx: Heparin Discharge Planning Anticipate discharge home in the morning. Jarrett Nicolas DO Mar 29, 2017 12:21
[2017-03-29] MEDS: POLYETHYLENE GLYCOL 17 GM PKG PO SCH (13:00)
--- NOTE | 2017-03-29 13:05 | HHI.GIFU ---
Subjective Remarks Resting in bed. Had significant nausea this am, no vomiting. Still with epigastric pain radiating to chest. (Niyah Edwards) Objective Vitals I&O Vital Signs Date Time Temp Pulse Resp B/P (MAP) Pulse Ox O2 Delivery O2 Flow Rate FiO2 03/29/17 11:05 96.4 88 18 145/84 (104) 98 03/29/17 08:15 99 Room Air 03/29/17 06:00 97.6 85 18 126/73 (90) 98 03/29/17 00:00 97.6 83 18 146/90 (108) 100 03/28/17 20:43 82 03/28/17 19:45 96.0 93 18 133/86 (102) 100 03/28/17 16:50 96.9 81 18 137/94 (108) 98 I/O 03/28/17 03/28/17 03/28/17 03/29/17 03/29/17 03/29/17 07:00 15:00 23:00 07:00 15:00 23:00 Intake Total 480 ml 600 ml 480 ml Output Total 800 ml Balance -320 ml 600 ml 480 ml Intake Oral 480 ml 600 ml 480 ml Output Urine Total 800 ml # Voids 4 3 4 # Bowel Movements 0 0 1 Laboratory Laboratory Tests Test 03/28/17 18:00 03/29/17 06:30 Platelet Function P2Y12 React Units 121 White Blood Count 4.8 Red Blood Count 4.29 Hemoglobin 14.4 Hematocrit 40.5 Mean Corpuscular Volume 94.3 Mean Corpuscular Hemoglobin 33.5 Mean Corpuscular Hemoglobin Concent 35.6 Red Cell Distribution Width 13.8 Platelet Count 85 Mean Platelet Volume 7.3 Neutrophils (%) (Auto) 40.9 Lymphocytes (%) (Auto) 44.0 Monocytes (%) (Auto) 10.5 Eosinophils (%) (Auto) 4.1 Basophils (%) (Auto) 0.5 Neutrophils # (Auto) 2.0 Lymphocytes # (Auto) 2.1 Monocytes # (Auto) 0.5 Eosinophils # (Auto) 0.2 Basophils # (Auto) 0.0 CBC Comment AUTO DIFF Differential Comment AUTO DIFF CONFIRMED Platelet Estimate LOW Platelet Morphology Comment NORMAL Blood Urea Nitrogen 9 Creatinine 0.61 Random Glucose 198 Calcium Level 8.9 Sodium Level 137 Potassium Level 3.9 Chloride Level 101 Carbon Dioxide Level 28.0 Anion Gap 8 Estimat Glomerular Filtration Rate 142 Imaging Last Impressions Gastric Emptying Nuclear Medicine 03/28/17 0000 Signed Impressions: Service Date/Time: Tuesday, March 28, 2017 09:46 - CONCLUSION: Delayed gastric emptying. Pepe Saha MD Chest X-Ray 03/26/172026 Signed Impressions: Service Date/Time: Sunday, March 26, 2017 20:50 - CONCLUSION: Normal examination. Britton Miranda MD Abdomen/Pelvis CT 03/26/17 0000 Signed Impressions: Service Date/Time: Sunday, March 26, 2017 19:16 - CONCLUSION: 1. Cirrhosis and portal hypertension with numerous varices as described above. Britton Miranda MD Physical Exam HEENT: Normocephalic; atraumatic; no jaundice. CHEST: CTA CARDIAC: RRR ABDOMEN: Soft, nondistended, epigastric pain; no hepatosplenomegaly; bowel sounds are present in all four quadrants. EXTREMITIES: No clubbing, cyanosis, or edema. SKIN: Normal; no rash; no jaundice. [employer]: No focal deficits; alert and oriented times three. (Niyah Edwards) Assessment and Plan Plan ASSESSMENT: - Gastroparesis with Abdominal pain/Nausea. C/O epigastric pain- sharp pain with bulging in epigastric area, states he can reduce this and the sharp pain will go away, but he will have a constant "numbing pain." S/P recent EGD (02/15/17)---> distal esophagitis, mild patchy gastritis, patchy duodenitis. Pathology with acute esophagitis, no gastric mucosa is identified, benign fundic mucosa by Dr. Cotto. CT scan abdomen and pelvis (03/26/17)---> Cirrhosis and portal hypertension with numerous varices as described above. He does have elevated LFTs (AST/ALT) not in obstructive pattern and no evidence of biliary obstruction on CT. He also complains of constant nausea and occasional vomiting. Of note, he has uncontrolled DM with peripheral neuropathy. GES (03/28/17)---> Delayed gastric emptying. Will start trial of bethanechol. He does have constipation as well and therefore will also add miralax. D/W patient Gastroparesis diet. - Elevated LFTs/Liver cirrhosis. Dx in 1991. Quit drinking in 2011. T. Bili 0.6, AST 166, ALT 174, Alk Phosph 174. AFP elevated 33.9. No masses noted on contrasted CT scan. - Hepatitis C, S/P unsuccessful tx with interferon/ribavirin. - GERD. Pt reports that he is taking OTC Prilosec 80mg BID at home. - Thrombocytopenia. 85,000. - Uncontrolled DM. Per attending. - CP, per attending. S/P recent cardiac catheterization (02/13/17)---> 40% stenosis mid vessel lesion LAD, 40% distal vessel lesion left circumflex, 80% stenosis proximal vessel lesion of right coronary. S/P balloon angioplasty and stent placement for right coronary artery and takes Plavix/ASA. PLAN: - 2 gram Na+ Diet - Protonix - Add Bethanechol - Add miralax - Monitor labs - LFT in am - Will need follow up for elevated AFP - Supportive care - Further recommendations to follow based on results of above - Pt seen and examined by Dr. Hill and myself and this note is written on his behalf (Niyah Edwards) Physician Comments Seen and examined, plan as above. Further recommendations to follow. (Kaushik Hill MD) Niyah Edwards Mar 29, 2017 13:05 Kaushik Hill MD Mar 29, 2017 14:07
--- NOTE | 2017-03-29 13:13 | PD.PSY.CON ---
Provisional Diagnosis Admission Date Mar 26, 2017 at 21:11 History of Present Illness Service Psychiatry Consult Requested By Surgical team Reason for Consult Anxiety Primary Care Physician No Primary Care Physician Past Family Social History Coded Allergies: No Known Allergies (Unverified , 03/26/17) Reported Medications Metoprolol Tartrate (Metoprolol Tartrate) 25 Mg Tab, 25 MG PO BID, #60 TAB 0 Refills 03/26/17 Insulin Human Isophane-Regular 70-30 Inj (Novolin 70-30 Inj) 1,000 Unit/10 Ml Vial, 10 UNITS SQ for Blood Sugar Management, ML 0 Refills 03/26/17 Insulin Aspart Inj (Novolog Inj) 1,000 Unit/10 Ml Vial, 0 SQ DIRECTED for Blood Sugar Management, #10 ML 0 Refills Sliding Scale as directed. 03/26/17 Gabapentin (Gabapentin) 300 Mg Cap, 300 MG PO TID, #90 CAP 0 Refills 03/26/17 Famotidine (Famotidine) 40 Mg Tab, 40 MG PO HS, #30 TAB 0 Refills 03/26/17 Clopidogrel (Clopidogrel) 75 Mg Tab, 75 MG PO DAILY for Blood Clot Prevention, # 30 TAB 0 Refills 03/26/17 Aspirin (Aspirin) 81 Mg Chew, 81 MG CHEW DAILY, TAB 0 Refills 03/26/17 Hydrocodone-Acetaminophen (Hydrocodone-Acetaminophen) 5-325 mg Tab, 1 TAB PO TID Y for PAIN, TAB 0 Refills 03/26/17 Current Medications Medications (Trade) Dose Ordered Sig/Shae Route Start Time Stop Time Status Last Admin (NS Flush) 2 ml BID IV FLUSH 03/27/17 09:00 03/28/17 21:45 (NS Flush) 2 ml UNSCH PRN IV FLUSH 03/26/17 21:15 (Nitroglycerin 2% Oint) 1 inch Q6HR TOP 03/27/17 00:00 03/29/17 06:13 (Tylenol) 500 mg Q4H PRN PO 03/26/17 21:15 (Morphine Inj) 2 mg Q3HR PRN IV PUSH 03/26/17 21:15 03/29/17 12:52 (Heparin Inj) 5,000 units Q8HR SQ 03/26/17 22:00 03/28/17 21:44 (D50w (Vial) Inj) 50 ml UNSCH PRN IV PUSH 03/26/17 21:15 (Glucagon Inj) 1 mg UNSCH PRN OTHER 03/26/17 21:15 (NovoLOG SUPPLEMENTAL SCALE) 1 ACHS SLIDING SCALE SQ 03/27/17 08:00 03/28/17 21:42 Sodium Chloride 1,000 ml @ 75 mls/hr [id number] IV 03/26/17 23:00 03/27/17 12:20 (Plavix) 75 mg DAILY PO 03/27/17 09:00 03/28/17 08:54 (Lopressor) 25 mg BID PO 03/27/17 09:00 03/29/17 11:51 (NovoLIN N INJ) 10 units DAILY SQ 03/27/17 12:00 03/27/17 13:03 (Neurontin) 600 mg TID PO 03/27/17 18:00 03/29/17 11:50 (Roxicodone) 5 mg Q4H PRN PO 03/27/17 14:45 03/29/17 11:55 Miscellaneous Information 1 HS T-DERMAL 03/28/17 21:00 03/28/17 21:45 (Protonix Inj) 40 mg Q12H IV PUSH 03/27/17 18:00 03/29/17 06:15 (NovoLIN N INJ) 5 units HS SQ 03/28/17 21:00 03/28/17 21:42 Sodium Chloride 1,000 ml @ 30 mls/hr Q24H IV 03/28/17 15:27 04/02/17 15:26 03/29/17 06:19 (Benadryl) 25 mg SCRIBING MACHINE OPERATOR PO 03/28/17 16:45 04/01/17 16:44 03/29/17 06:49 (Valium) 2.5 mg SCRIBING MACHINE OPERATOR PO 03/28/17 17:00 04/01/17 16:59 03/29/17 06:49 (Pill Splitter) 1 ea UNSCH PRN OTHER 03/28/17 17:00 Lactated Ringer's 1,000 ml @ 30 mls/hr Q24H PRN IV 03/28/17 19:30 03/31/17 19:29 Sodium Chloride 500 ml @ 30 mls/hr [id number] PRN IV 03/28/17 19:30 03/31/17 19:29 (Lopressor) 25 mg SCRIBING MACHINE OPERATOR PRN PO 03/28/17 19:30 03/31/17 19:29 (Betadine 5% Antisepsis Kit) 1 applic SCRIBING MACHINE OPERATOR PRN EACH NARE 03/28/17 19:30 03/31/17 19:29 (Chlorhexidine 2% Cloth) 3 pack SCRIBING MACHINE OPERATOR PRN TOPICAL 03/28/17 19:30 03/31/17 19:29 (NovoLIN R INJ) See Protocol Table ... SCRIBING MACHINE OPERATOR PRN SQ 03/28/17 19:30 03/31/17 19:29 (Urecholine) 25 mg Q8HR PO 03/29/17 14:00 (Carafate Liq) 1 gm ACHS PO 03/29/17 17:00 (Miralax) 17 gm DAILY PO 03/29/17 13:00 Physical Exam Vital Signs Vital Signs Date Time Temp Pulse Resp B/P (MAP) Pulse Ox O2 Delivery O2 Flow Rate FiO2 03/29/17 11:05 96.4 88 18 145/84 (104) 98 03/29/17 08:15 Room Air Lab Results Test 03/28/17 18:00 03/29/17 06:30 Platelet Function [id number] React Units 121 PRU White Blood Count 4.8 TH/MM3 Red Blood Count 4.29 MIL/MM3 Hemoglobin 14.4 GM/DL Hematocrit 40.5 % Mean Corpuscular Volume 94.3 FL Mean Corpuscular Hemoglobin 33.5 PG Mean Corpuscular Hemoglobin Concent 35.6 % Red Cell Distribution Width 13.8 % Platelet Count 85 TH/MM3 Mean Platelet Volume 7.3 FL Neutrophils (%) (Auto) 40.9 % Lymphocytes (%) (Auto) 44.0 % Monocytes (%) (Auto) 10.5 % Eosinophils (%) (Auto) 4.1 % Basophils (%) (Auto) 0.5 % Neutrophils # (Auto) 2.0 TH/MM3 Lymphocytes # (Auto) 2.1 TH/MM3 Monocytes # (Auto) 0.5 TH/MM3 Eosinophils # (Auto) 0.2 TH/MM3 Basophils # (Auto) 0.0 TH/MM3 CBC Comment AUTO DIFF Differential Comment AUTO DIFF CONFIRMED Platelet Estimate LOW Platelet Morphology Comment NORMAL Blood Urea Nitrogen 9 MG/DL Creatinine 0.61 MG/DL Random Glucose 198 MG/DL Calcium Level 8.9 MG/DL Sodium Level 137 MEQ/L Potassium Level 3.9 MEQ/L Chloride Level 101 MEQ/L Carbon Dioxide Level 28.0 MEQ/L Anion Gap 8 MEQ/L Estimat Glomerular Filtration Rate 142 ML/MIN Assessment & Plan Problem List: (1) Poorly controlled diabetes mellitus ICD Codes: E11.65 - Type 2 diabetes mellitus with hyperglycemia Status: Acute Assessment & Plan: Patient revisited today for psychiatric evaluation, but he was out for surgery. Assessment & Plan Estimated LOS: Murtaza Young MD Mar 29, 2017 13:13
[2017-03-29] MEDS: BETHANECHOL CHL 25 MG TAB PO SCH ×2 (14:00→21:25)
[2017-03-29] MEDS: SUCRALFATE 1 GM/10 ML CUP PO SCH ×2 (15:58→20:26)
[2017-03-29] MEDS ORDERED: DIAZEPAM 5 MG TAB PO ONE (20:45)
[2017-03-29] MEDS: REMOVE OLD NICODERM (NICOTINE) PATCH T-DERMAL SCH (21:00)
[2017-03-30] VITALS (7 sets, daily range): BP systolic 116–146; BP diastolic 71–83; PULSE 83–96; RESP 18–20; TEMP 95.5–97.4; O2SAT 94–100
[2017-03-30] MEDS: MORPHINE SULFATE 4 MG/ML INJ IV PUSH PRN ×2 (02:24→10:39)
[2017-03-30] MEDS: NITROGLYCERIN 2% OINT 1 GM PACKET TOP SCH ×4 (06:00→18:00)
[2017-03-30] MEDS: PANTOPRAZOLE SODIUM 40 MG VIAL IV PUSH SCH ×2 (06:04→16:38)
[2017-03-30] MEDS: HEPARIN SODIUM - SQ 10,000 UNITS/ML VIAL SQ SCH ×3 (06:04→21:34)
[2017-03-30] MEDS: BETHANECHOL CHL 25 MG TAB PO SCH ×3 (06:04→21:34)
[2017-03-30] MEDS: SODIUM CHLOR 0.9% 1000 ML INJ 1,000 ML IV SCH ×3 (07:00→20:20)
[2017-03-30] MEDS: INSULIN ASPART SUPPLEMENTAL SCALE SQ SCH ×4 (08:00→21:38)
[2017-03-30] MEDS: INSULIN HUMAN NPH 1,000 UNITS/10 ML VIAL SQ SCH ×2 (08:51→21:36)
[2017-03-30] MEDS: SUCRALFATE 1 GM/10 ML CUP PO SCH ×4 (08:53→20:15)
[2017-03-30] MEDS: GABAPENTIN 300 MG CAP PO SCH ×3 (08:53→16:38)
[2017-03-30] MEDS: METOPROLOL TARTRATE 25 MG TAB PO SCH ×2 (08:54→20:23)
[2017-03-30] MEDS: POLYETHYLENE GLYCOL 17 GM PKG PO SCH (08:54)
[2017-03-30] MEDS: CLOPIDOGREL 75 MG TAB PO SCH (08:54)
[2017-03-30] MEDS: SODIUM CHLORIDE 0.9% FLUSH 10 ML FLUSH IV FLUSH SCH ×2 (08:54→20:15)
[2017-03-30] MEDS ORDERED: GADODIAMIDE PF 287 MG/ML 20 ML VIAL (for RAD MRI) IVCONTRAST ONE (12:18)
--- NOTE | 2017-03-30 13:31 | RADRPT ---
EXAM DATE/TIME: 03/30/2017 11:33 [facility] COMPARISON: CT ABDOMEN & PELVIS W CONTRAST, March 26, 2017, 19:16. INDICATIONS : Cirrhosis. CONTRAST: 16 cc Omniscan (gadodiamide) IV MEDICAL HISTORY : Hypertension. Diabetes mellitus type 2. Cirrhosis. SURGICAL HISTORY : Cholecystectomy. Coronary artery stent. ENCOUNTER: Initial ACUITY: 3 day PAIN SCORE: 5/10 LOCATION: Abdomen. TECHNIQUE: Multiplanar, multisequence magnetic resonance imaging of the abdomen was performed without and with i ntravenous contrast. FINDINGS: LIVER: Cirrhotic appearance without focal mass or biliary ductal dilatation. Prominent upper abdominal varic es and likely spontaneous splenorenal shunt. BILIARY: There is no intra- or extra-hepatic biliary ductal dilatation. Gallbladder surgically absent. SPLEEN: Within normal limits. PANCREAS: Within normal limits. ADRENALS: Within normal limits. KIDNEYS: Normal size and signal intensity. There is no hydronephrosis or mass. OTHER: Aorta is nonaneurysmal. There is no lymphadenopathy. CONCLUSION: Cirrhotic liver appearance. Upper abdominal varices with spontaneous splenorenal shunt. Deshawn Arenas MD on March 30, 2017 at 13:15 Board Certified Radiologist. This report was verified electronically.
--- NOTE | 2017-03-30 15:22 | PD.PSY.CON ---
Provisional Diagnosis Admission Date Mar 26, 2017 at 21:11 [place] I. Adjustment disorder with depression and anxiety [place] II. Deferred [place] III. Diabetes, cirrhosis, hepatitis C History of Present Illness Service Psychiatry Consult Requested By Hospitalist Reason for Consult Suicidal ideation and depression Primary Care Physician No Primary Care Physician HPI The patient is a 46-year-old man, domicile with his sister in [place], but , unemployed, in the SSI process, with psychiatric history of depression and anxiety, no previous psychiatric hospitalizations, previous suicidal attempts, self cutting behavior, alcohol, cocaine, heroine use disorder, in remission, cannabis use disorder, history of poor impulse control, incarcerations, anger management issues, medical history significant for CAD (started one month ago) hep C cirrhosis and uncontrolled diabetes mellitus presents to the emergency department with severe chest and abdominal pain and hyperglycemia. She was consulted to psychiatry after endorsing suicidal ideation. On psychiatric evaluation today the patient was calm, cooperative, talkative. He reports that he has been very overwhelmed and frustrated in the context of multiple decompensated medical conditions. Patient reports anxiety related with hospitalization, poor sleep at night, ongoing frustration due to lack of effective communication with medical team and nurses. Patient reports that he has been able to sleep more than 1 or 2 hours in the last week. He reports frequent suicidal ideation, no plan at the moment. Says that he has been seen how his life is going down the road [facility] [employer], [employer] and of the family lewis. He has been in the process of her stated and his 7 years old daughter has been from him. He also has been unable to find a job, he is filing SSI, "but having a lot of difficulties". Patient says that in these days that he has been very vulnerable a lot of bad thoughts, bad memories for the past has been insistently intrusive in his mind, especially at night. Patient says that he has been an addict in the past, using cocaine, heroine and alcohol was the way he had to cope with anxiety and depression, but has been over 2 years now sober. Patient states that he has been advised to look for psychiatric help and try antipsychotics for his depression and anxiety. Review of Systems Constitutional: DENIES: Diaphoretic episodes, Fatigue, Fever, Weight gain, Weight loss, Chills, Dizziness, Change in appetite, Night Sweats Endocrine: DENIES: Heat/cold intolerance, Polydipsia, Polyuria, Polyphagia Eyes: DENIES: Blurred vision, Diplopia, Eye inflammation, Eye pain, Vision loss , Photosensitivity, Double Vision Ears, nose, mouth, throat: DENIES: Tinnitus, Hearing loss, Vertigo, Nasal discharge, Oral lesions, Throat pain, Hoarseness, Ear Pain, Running Nose, Epistaxis, Sinus Pain, Toothache, Odynophagia Respiratory: DENIES: Apneas, Cough, Snoring, Wheezing, Hemoptysis, Sputum production, Shortness of breath Cardiovascular: DENIES: Chest pain, Palpitations, Syncope, Dyspnea on Exertion , PND, Lower Extremity Edema, Orthopnea, Claudication Gastrointestinal: DENIES: Abdominal pain, Black stools, Bloody stools, Constipation, Diarrhea, Nausea, Vomiting, Difficulty Swallowing, Anorexia Genitourinary: DENIES: Sexual dysfunction, Urinary frequency, Urinary incontinence, Urgency, Hematuria, Dysuria, Nocturia, Penile Discharge, Testicular Pain, Testicular Swelling Musculoskeletal: DENIES: Joint pain, Muscle aches, Stiffness, Joint Swelling, Back pain, Neck pain Integumentary: DENIES: Abnormal pigmentation, Nail changes, Pruritus, Rash Hematologic/lymphatic: DENIES: Bruising, Lymphadenopathy Immunologic/allergic: DENIES: Eczema, Urticaria Neurologic: DENIES: Abnormal gait, Headache, Localized weakness, Paresthesias, Seizures, Speech Problems, Tremor, Poor Balance Psychiatric: COMPLAINS OF: Anxiety, Depression Past Family Social History Coded Allergies: No Known Allergies (Unverified , 03/26/17) Reported Medications Metoprolol Tartrate (Metoprolol Tartrate) 25 Mg Tab, 25 MG PO BID, #60 TAB 0 Refills 03/26/17 Insulin Human Isophane-Regular 70-30 Inj (Novolin 70-30 Inj) 1,000 Unit/10 Ml Vial, 10 UNITS SQ for Blood Sugar Management, ML 0 Refills 03/26/17 Insulin Aspart Inj (Novolog Inj) 1,000 Unit/10 Ml Vial, 0 SQ DIRECTED for Blood Sugar Management, #10 ML 0 Refills Sliding Scale as directed. 03/26/17 Gabapentin (Gabapentin) 300 Mg Cap, 300 MG PO TID, #90 CAP 0 Refills 03/26/17 Famotidine (Famotidine) 40 Mg Tab, 40 MG PO HS, #30 TAB 0 Refills 03/26/17 Clopidogrel (Clopidogrel) 75 Mg Tab, 75 MG PO DAILY for Blood Clot Prevention, # 30 TAB 0 Refills 03/26/17 Aspirin (Aspirin) 81 Mg Chew, 81 MG CHEW DAILY, TAB 0 Refills 03/26/17 Hydrocodone-Acetaminophen (Hydrocodone-Acetaminophen) 5-325 mg Tab, 1 TAB PO TID Y for PAIN, TAB 0 Refills 03/26/17 Current Medications Medications (Trade) Dose Ordered Sig/Shae Route Start Time Stop Time Status Last Admin (NS Flush) 2 ml BID IV FLUSH 03/27/17 09:00 03/30/17 08:54 (NS Flush) 2 ml UNSCH PRN IV FLUSH 03/26/17 21:15 (Nitroglycerin 2% Oint) 1 inch Q6HR TOP 03/27/17 00:00 03/29/17 06:13 (Tylenol) 500 mg Q4H PRN PO 03/26/17 21:15 (Morphine Inj) 2 mg Q3HR PRN IV PUSH 03/26/17 21:15 03/30/17 10:39 (Heparin Inj) 5,000 units Q8HR SQ 03/26/17 22:00 03/30/17 13:03 (D50w (Vial) Inj) 50 ml UNSCH PRN IV PUSH 03/26/17 21:15 (Glucagon Inj) 1 mg UNSCH PRN OTHER 03/26/17 21:15 (NovoLOG SUPPLEMENTAL SCALE) 1 ACHS SLIDING SCALE SQ 03/27/17 08:00 03/30/17 13:21 Sodium Chloride 1,000 ml @ 75 mls/hr [id number] IV 03/26/17 23:00 03/27/17 12:20 (Plavix) 75 mg DAILY PO 03/27/17 09:00 03/30/17 08:54 (Lopressor) 25 mg BID PO 03/27/17 09:00 03/30/17 08:54 (NovoLIN N INJ) 10 units DAILY SQ 03/27/17 12:00 03/30/17 08:51 (Neurontin) 600 mg TID PO 03/27/17 18:00 03/30/17 13:03 (Roxicodone) 5 mg Q4H PRN PO 03/27/17 14:45 03/30/17 13:16 Miscellaneous Information 1 HS T-DERMAL 03/28/17 21:00 03/29/17 21:00 (Protonix Inj) 40 mg Q12H IV PUSH 03/27/17 18:00 03/30/17 06:04 (NovoLIN N INJ) 5 units HS SQ 03/28/17 21:00 03/29/17 21:28 Sodium Chloride 1,000 ml @ 30 mls/hr Q24H IV 03/28/17 15:27 04/02/17 15:26 03/29/17 06:19 (Benadryl) 25 mg SUPERVISOR REWORK PO 03/28/17 16:45 04/01/17 16:44 03/29/17 06:49 (Valium) 2.5 mg SUPERVISOR REWORK PO 03/28/17 17:00 04/01/17 16:59 03/29/17 06:49 (Pill Splitter) 1 ea UNSCH PRN OTHER 03/28/17 17:00 Lactated Ringer's 1,000 ml @ 30 mls/hr Q24H PRN IV 03/28/17 19:30 03/31/17 19:29 Sodium Chloride 500 ml @ 30 mls/hr [id number] PRN IV 03/28/17 19:30 03/31/17 19:29 (Lopressor) 25 mg SUPERVISOR REWORK PRN PO 03/28/17 19:30 03/31/17 19:29 (Betadine 5% Antisepsis Kit) 1 applic SUPERVISOR REWORK PRN EACH NARE 03/28/17 19:30 03/31/17 19:29 (Chlorhexidine 2% Cloth) 3 pack SUPERVISOR REWORK PRN TOPICAL 03/28/17 19:30 03/31/17 19:29 (NovoLIN R INJ) See Protocol Table ... SUPERVISOR REWORK PRN SQ 03/28/17 19:30 03/31/17 19:29 (Urecholine) 25 mg Q8HR PO 03/29/17 14:00 03/30/17 13:03 (Carafate Liq) 1 gm ACHS PO 03/29/17 17:00 03/30/17 10:39 (Miralax) 17 gm DAILY PO 03/29/17 13:00 Family Psych History No family psychiatric history Social History Patient was born and raised in [place], he lives in [place] with his sister, he is but , unemployed, and SSI process, he has GED Patient's Strengths (min. 2) Verbal communications Physical Exam Vital Signs Vital Signs Date Time Temp Pulse Resp B/P (MAP) Pulse Ox O2 Delivery O2 Flow Rate FiO2 03/30/17 12:00 97.4 92 18 146/83 (104) 100 03/29/17 08:15 Room Air I/O 03/30/17 03/30/17 03/31/17 08:00 16:00 00:00 Intake Total 800 ml Balance 800 ml Mental Status Examination Appearance: Appropriate Consciousness: Alert Orientation: x4 Motor Activity: Normal gait Speech: Unremarkable Language: Adequate Fund of Knowledge: Adequate Attention and Concentration: Adequate Memory: Unremarkable Mood: Sad Affect: Irritable Thought Process & Associations: Intact Thought Content: Appropriate Hallucination Type: None Delusion Type: None Suicidal Ideation: Yes Suicidal Plan: No Suicidal Intention: No Homicidal Ideation: No Homicidal Plan: No Homicidal Intention: No Insight: Adequate Judgment: Adequate Assessment & Plan Problem List: (1) Poorly controlled diabetes mellitus ICD Codes: E11.65 - Type 2 diabetes mellitus with hyperglycemia Status: Acute (2) Adjustment disorder with mixed anxiety and depressed mood ICD Codes: F43.23 - Adjustment disorder with mixed anxiety and depressed mood Assessment & Plan: Patient reports symptomatology of depression and anxiety that seems to be exacerbated by current medical illness and hospitalization. The patient reports poor sleep, low level of energy, frequent mood swings, hopelessness, helplessness, poor sensitivity to rejection and frustration, frequent suicidal thoughts. Patient contracted for safety in the hospital. Patient is enthusiastic about being treated for depression and anxiety and integrating in psychotherapy and group therapy. I recommended a voluntary admission in psychiatry once medically stable. He is open to voluntary admission. Will prescribe clonazepam 0.5 mg 3 times per day in order to help with anxiety, we prescribed Seroquel 50 mg at bedtime to help with the sleep and mood stabilization. We'll follow-up. Assessment & Plan Estimated LOS: Murtaza He MD Mar 30, 2017 15:22
--- NOTE | 2017-03-30 15:55 | HHI.GIFU ---
Subjective Remarks Resting in bed. Still having significant nausea, no vomiting. Abdominal pain. D/W patient MRI results, elevated AFP- need for fu for surveillance. D/W patient and sister gastroparesis, diet, meds, and limiting narcotic use. Verbalizes understanding. (Niyah Edwards) Objective Vitals I&O Vital Signs Date Time Temp Pulse Resp B/P (MAP) Pulse Ox O2 Delivery O2 Flow Rate FiO2 03/30/17 12:00 97.4 92 18 146/83 (104) 100 03/30/17 08:00 95.9 84 18 123/81 (95) 99 03/30/17 04:28 96.6 83 20 116/71 (86) 94 03/30/17 00:27 97.4 84 20 122/76 (91) 98 03/29/17 23:00 77 03/29/17 20:05 97.1 77 20 129/80 (96) 98 03/29/17 20:00 77 03/29/17 16:00 95.8 90 18 126/78 (94) 99 I/O 03/29/17 03/29/17 03/29/17 03/30/17 03/30/17 03/30/17 07:00 15:00 23:00 07:00 15:00 23:00 Intake Total 480 ml 680 ml 800 ml Balance 480 ml 680 ml 800 ml Intake Oral 480 ml 680 ml 800 ml # Voids 4 4 3 4 3 # Bowel Movements 1 0 1 Laboratory Laboratory Tests Test 03/30/17 15:21 Imaging Last Impressions Abdomen MRI 03/30/17 0000 Signed Impressions: Service Date/Time: March 11:33 - CONCLUSION: Cirrhotic liver appearance. Upper abdominal varices with spontaneous splenorenal shunt. Deshawn Arenas MD Gastric Emptying Nuclear Medicine 03/28/17 0000 Signed Impressions: Service Date/Time: Tuesday, March 28, 2017 09:46 - CONCLUSION: Delayed gastric emptying. Pepe Saha MD Chest X-Ray 03/26/172026 Signed Impressions: Service Date/Time: Sunday, March 26, 2017 20:50 - CONCLUSION: Normal examination. Britton Miranda MD Abdomen/Pelvis CT 03/26/17 0000 Signed Impressions: Service Date/Time: Sunday, March 26, 2017 19:16 - CONCLUSION: 1. Cirrhosis and portal hypertension with numerous varices as described above. Britton Miranda MD Physical Exam HEENT: Normocephalic; atraumatic; no jaundice. CHEST: CTA CARDIAC: RRR ABDOMEN: Soft, nondistended, mild epigastric pain; no hepatosplenomegaly; bowel sounds are present in all four quadrants. EXTREMITIES: No clubbing, cyanosis, or edema. SKIN: Normal; no rash; no jaundice. SMALL KICK PRESS OPERATOR: No focal deficits; alert and oriented times three. (Niyah Edwards) Assessment and Plan Plan ASSESSMENT: - Gastroparesis with Abdominal pain/Nausea. C/O epigastric pain- sharp pain with bulging in epigastric area, states he can reduce this and the sharp pain will go away, but he will have a constant "numbing pain." S/P recent EGD (02/15/17)---> distal esophagitis, mild patchy gastritis, patchy duodenitis. Pathology with acute esophagitis, no gastric mucosa is identified, benign fundic mucosa by Dr. Cotto. CT scan abdomen and pelvis (03/26/17)---> Cirrhosis and portal hypertension with numerous varices as described above. He does have elevated LFTs (AST/ALT) not in obstructive pattern and no evidence of biliary obstruction on CT. He also complains of constant nausea and occasional vomiting. Of note, he has uncontrolled DM with peripheral neuropathy. GES (03/28/17)---> Delayed gastric emptying. D/W patient Gastroparesis diet, limiting narcotics. Bethanechol, Miralax. Still having nausea, will add EES. - Elevated LFTs/Liver cirrhosis. Dx in 1991. Quit drinking in 2011. AFP elevated 33.9. No masses noted on contrasted CT scan. MRI as above- no masses. D/W patient. - Hepatitis C, S/P unsuccessful tx with interferon/ribavirin. - GERD. Pt reports that he is taking OTC Prilosec 80mg BID at home. - Thrombocytopenia. - Uncontrolled DM. Per attending. - CP, per attending. S/P recent cardiac catheterization (02/13/17)---> 40% stenosis mid vessel lesion LAD, 40% distal vessel lesion left circumflex, 80% stenosis proximal vessel lesion of right coronary. S/P balloon angioplasty and stent placement for right coronary artery and takes Plavix/ASA. PLAN: - 2 gram Na+ Diet - Protonix - Bethanechol - Miralax - Unable to get EES secondary to drug interactions - Await LFT - Okay to d/c - FU FLORES 2 weeks - Pt seen and examined by Dr. Hill and myself and this note is written on his behalf (Niyah Edwards) Physician Comments Agree with the plan as above. Please notify us if needed. (Kaushik Hill MD) Niyah Edwards Mar 30, 2017 15:55 Kaushik Hill MD Mar 30, 2017 17:00
[2017-03-30 16:05] LABS: INDIRECT BILIRUBIN 0.4 MG/DL (0.0-0.8); TOTAL BILIRUBIN ADULT 0.9 MG/DL (0.2-1.0)
[2017-03-30] MEDS: clonazePAM 0.5 MG TAB PO SCH (16:38)
--- NOTE | 2017-03-30 16:45 | HHI.PR ---
Subjective Remarks The patient was resting in bed comfortably. His family was at bedside. Their questions were answered. The patient said that he still had nausea and abdominal pain. He wanted his pain medications changed from oxycodone to by mouth morphine. Objective Vitals Vital Signs Date Time Temp Pulse Resp B/P (MAP) Pulse Ox O2 Delivery O2 Flow Rate FiO2 03/30/17 12:00 97.4 92 18 146/83 (104) 100 03/30/17 08:00 95.9 84 18 123/81 (95) 99 03/30/17 04:28 96.6 83 20 116/71 (86) 94 03/30/17 00:27 97.4 84 20 122/76 (91) 98 03/29/17 23:00 77 03/29/17 20:05 97.1 77 20 129/80 (96) 98 03/29/17 20:00 77 I/O 03/29/17 03/29/17 03/29/17 03/30/17 03/30/17 03/30/17 07:00 15:00 23:00 07:00 15:00 23:00 Intake Total 480 ml 680 ml 800 ml Balance 480 ml 680 ml 800 ml Intake Oral 480 ml 680 ml 800 ml # Voids 4 4 3 4 3 # Bowel Movements 1 0 1 Result Diagram: 03/29/1762903/29/17629 Imaging Last Impressions Abdomen MRI 03/30/17 0000 Signed Impressions: Service Date/Time: March 11:33 - CONCLUSION: Cirrhotic liver appearance. Upper abdominal varices with spontaneous splenorenal shunt. Deshawn Arenas MD Gastric Emptying Nuclear Medicine 03/28/17 0000 Signed Impressions: Service Date/Time: Tuesday, March 28, 2017 09:46 - CONCLUSION: Delayed gastric emptying. Pepe Saha MD Chest X-Ray 03/26/172026 Signed Impressions: Service Date/Time: Sunday, March 26, 2017 20:50 - CONCLUSION: Normal examination. Britton Miranda MD Abdomen/Pelvis CT 03/26/17 0000 Signed Impressions: Service Date/Time: Sunday, March 26, 2017 19:16 - CONCLUSION: 1. Cirrhosis and portal hypertension with numerous varices as described above. Britton Miranda MD Objective Remarks GENERAL: Resting comfortably. SKIN: No rashes, ecchymoses or lesions. Cool and dry. HEAD: Atraumatic. Normocephalic. No temporal or scalp tenderness. EYES: Pupils equal round and reactive. Extraocular motions intact. No scleral icterus. No injection or drainage. ENT: Nose without bleeding, purulent drainage or septal hematoma. Throat without erythema, tonsillar hypertrophy or exudate. Uvula midline. Airway patent. NECK: Trachea midline. No JVD or lymphadenopathy. Supple, nontender, no meningeal signs. CARDIOVASCULAR: Regular rate and rhythm without murmurs, gallops, or rubs. RESPIRATORY: Clear to auscultation. Breath sounds equal bilaterally. No wheezes , rales, or rhonchi. GASTROINTESTINAL: Abdomen soft, tender to palpation in the epigastric area. Nondistended. No peritoneal signs. No guarding. No palpable masses. MUSCULOSKELETAL: Extremities without clubbing, cyanosis, or edema. Bilateral lower extremity tenderness. NEUROLOGICAL: Awake and alert. Cranial nerves II through XII intact. Motor and sensory grossly within normal limits. Normal speech. PSYCH: Mood and affect appropriate. Procedures Cardiac catheterization 03/29/17 Medications and IVs Current Medications Medications (Trade) Dose Ordered Sig/Shae Route Start Time Stop Time Status Last Admin (NS Flush) 2 ml BID IV FLUSH 03/27/17 09:00 03/30/17 08:54 (NS Flush) 2 ml UNSCH PRN IV FLUSH 03/26/17 21:15 (Nitroglycerin 2% Oint) 1 inch Q6HR TOP 03/27/17 00:00 03/29/17 06:13 (Tylenol) 500 mg Q4H PRN PO 03/26/17 21:15 (Morphine Inj) 2 mg Q3HR PRN IV PUSH 03/26/17 21:15 03/30/17 10:39 (Heparin Inj) 5,000 units Q8HR SQ 03/26/17 22:00 03/30/17 13:03 (D50w (Vial) Inj) 50 ml UNSCH PRN IV PUSH 03/26/17 21:15 (Glucagon Inj) 1 mg UNSCH PRN OTHER 03/26/17 21:15 (NovoLOG SUPPLEMENTAL SCALE) 1 ACHS SLIDING SCALE SQ 03/27/17 08:00 03/30/17 13:21 Sodium Chloride 1,000 ml @ 75 mls/hr [id number] IV 03/26/17 23:00 03/27/17 12:20 (Plavix) 75 mg DAILY PO 03/27/17 09:00 03/30/17 08:54 (Lopressor) 25 mg BID PO 03/27/17 09:00 03/30/17 08:54 (NovoLIN N INJ) 10 units DAILY SQ 03/27/17 12:00 03/30/17 08:51 (Neurontin) 600 mg TID PO 03/27/17 18:00 03/30/17 13:03 (Roxicodone) 5 mg Q4H PRN PO 03/27/17 14:45 03/30/17 13:16 Miscellaneous Information 1 HS T-DERMAL 03/28/17 21:00 03/29/17 21:00 (Protonix Inj) 40 mg Q12H IV PUSH 03/27/17 18:00 03/30/17 06:04 (NovoLIN N INJ) 5 units HS SQ 03/28/17 21:00 03/29/17 21:28 Sodium Chloride 1,000 ml @ 30 mls/hr Q24H IV 03/28/17 15:27 04/02/17 15:26 03/29/17 06:19 (Benadryl) 25 mg SENIOR SHAREPOINT DEVELOPER PO 03/28/17 16:45 04/01/17 16:44 03/29/17 06:49 (Valium) 2.5 mg SENIOR SHAREPOINT DEVELOPER PO 03/28/17 17:00 04/01/17 16:59 03/29/17 06:49 (Pill Splitter) 1 ea UNSCH PRN OTHER 03/28/17 17:00 Lactated Ringer's 1,000 ml @ 30 mls/hr Q24H PRN IV 03/28/17 19:30 03/31/17 19:29 Sodium Chloride 500 ml @ 30 mls/hr [id number] PRN IV 03/28/17 19:30 03/31/17 19:29 (Lopressor) 25 mg SENIOR SHAREPOINT DEVELOPER PRN PO 03/28/17 19:30 03/31/17 19:29 (Betadine 5% Antisepsis Kit) 1 applic SENIOR SHAREPOINT DEVELOPER PRN EACH NARE 03/28/17 19:30 03/31/17 19:29 (Chlorhexidine 2% Cloth) 3 pack SENIOR SHAREPOINT DEVELOPER PRN TOPICAL 03/28/17 19:30 03/31/17 19:29 (NovoLIN R INJ) See Protocol Table ... SENIOR SHAREPOINT DEVELOPER PRN SQ 03/28/17 19:30 03/31/17 19:29 (Urecholine) 25 mg Q8HR PO 03/29/17 14:00 03/30/17 13:03 (Carafate Liq) 1 gm ACHS PO 03/29/17 17:00 03/30/17 10:39 (Miralax) 17 gm DAILY PO 03/29/17 13:00 (KlonoPIN) 0.5 mg Q8H PO 03/30/17 16:00 (SEROquel) 50 mg HS PO 03/30/17 21:00 A/P Assessment and Plan 46-year-old male with a past medical history significant for CAD (started one month ago) hep C cirrhosis and uncontrolled diabetes mellitus presents to the emergency department with severe chest and abdominal pain and hyperglycemia. Chest pain with history of CAD Per patient, pain is similar as it was 1 month ago when he had a stent placed. EKG with normal sinus rhythm. Trops flat. May be s/t GI complaints. Cardiology consult appreciated. Status post catheterization which did not show occlusive disease. - Nitropatch - Morphine for pain - Follow with cardiology as an outpatient. - Continue Plavix. Discontinue aspirin per cardiology. Hyperglycemia/uncontrolled diabetes mellitus Patient given 10 units insulin in the ED. No anion gap. A1c 10.9%. - Sliding scale insulin every 4 hours - Per patient, he cannot afford his home NovoLog 70/30 and has been attempting to control his blood sugars with only Humalog. He states he does not know what his blood sugars normally run because his meter just reads "high". A1c pending - Start NPH 10 units twice a day and consult the community health educator Hepatitis C cirrhosis/portal hypertension/varices/ Elevated LFTs Patient with transaminitis and elevated alkaline phosphatase. Failed interferon treatment in 2002. Gastroenterology consulted. GES with delayed emptying. Medications per GI. LFTs are increasing. MRI showed: Cirrhotic liver appearance ; Upper abdominal varices with spontaneous splenorenal shunt. - trend LFTs. - follow up with GI. - erythromycin per GI. GERD Patient reports he had an EGD 1 month ago in [facility] that was significant for severe reflux disease Continue PPI. - GI following. SI/ Anxiety The pt endorses SI. Psych consult appreciated. - d/c to psych when stable. PPx: Heparin Discharge Planning D/c to psych when tolerating diet and if LFTs are stable. Jarrett Nicolas DO Mar 30, 2017 16:45
[2017-03-30] MEDS: MORPHINE SULFATE 15 MG TAB PO PRN (18:05)
[2017-03-30] MEDS: QUEtiapine FUMARATE 25 MG TAB PO SCH (20:16)
[2017-03-30] MEDS: REMOVE OLD NICODERM (NICOTINE) PATCH T-DERMAL SCH (21:00)
[2017-03-31] VITALS (8 sets, daily range): BP systolic 91–105; BP diastolic 67–71; PULSE 83–113; RESP 16–18; TEMP 95.7–97.9; O2SAT 96–98
[2017-03-31] MEDS: clonazePAM 0.5 MG TAB PO SCH ×3 (03:26→17:18)
[2017-03-31] MEDS: MORPHINE SULFATE 15 MG TAB PO PRN ×2 (03:31→09:16)
[2017-03-31] MEDS: BETHANECHOL CHL 25 MG TAB PO SCH ×3 (05:27→21:30)
[2017-03-31] MEDS: HEPARIN SODIUM - SQ 10,000 UNITS/ML VIAL SQ SCH ×3 (05:28→21:31)
[2017-03-31] MEDS: PANTOPRAZOLE SODIUM 40 MG VIAL IV PUSH SCH ×2 (05:28→17:18)
[2017-03-31] MEDS: NITROGLYCERIN 2% OINT 1 GM PACKET TOP SCH ×4 (05:28→17:40)
[2017-03-31 06:13] LABS: ANION GAP 9 MEQ/L (5-15); AST (GOT) 290 U/L (15-37); BICARBONATE 31.2 MEQ/L (21.0-32.0); BLOOD UREA NITROGEN 13 MG/DL (7-18); CHLORIDE 101 MEQ/L (98-107); GLOMERULAR FILTRATION RATE 107 ML/MIN (>89); POTASSIUM 4.4 MEQ/L (3.5-5.1); SODIUM (NA) 141 MEQ/L (136-145)
[2017-03-31 06:16] LABS: ALKALINE PHOSPHATASE 199 U/L (45-117); ALT (GPT) 268 U/L (12-78); TOTAL BILIRUBIN ADULT 1.1 MG/DL (0.2-1.0)
[2017-03-31] MEDS: INSULIN ASPART SUPPLEMENTAL SCALE SQ SCH ×4 (08:00→21:32)
[2017-03-31] MEDS: GABAPENTIN 300 MG CAP PO SCH ×3 (09:16→17:17)
[2017-03-31] MEDS: METOPROLOL TARTRATE 25 MG TAB PO SCH ×2 (09:16→21:30)
[2017-03-31] MEDS: CLOPIDOGREL 75 MG TAB PO SCH (09:16)
[2017-03-31] MEDS: POLYETHYLENE GLYCOL 17 GM PKG PO SCH (09:16)
[2017-03-31] MEDS: SUCRALFATE 1 GM/10 ML CUP PO SCH ×4 (09:16→21:30)
[2017-03-31] MEDS: SODIUM CHLORIDE 0.9% FLUSH 10 ML FLUSH IV FLUSH SCH ×2 (09:17→21:36)
[2017-03-31] MEDS: SODIUM CHLOR 0.9% 1000 ML INJ 1,000 ML IV SCH ×3 (09:40→21:32)
[2017-03-31] MEDS: INSULIN HUMAN NPH 1,000 UNITS/10 ML VIAL SQ SCH ×2 (10:40→21:31)
[2017-03-31] MEDS: NICOTINE 21 MG/24 HR PATCH T-DERMAL SCH (10:44)
--- NOTE | 2017-03-31 13:57 | HHI.PR ---
Subjective Remarks The patient reports feeling dizzy with standing up. He also endorses confusion and hitting his head. He still has abdominal pain. He has been eating but feels like the food is not going down easily. Discussed with nursing at the bedside. Objective Vitals Vital Signs Date Time Temp Pulse Resp B/P (MAP) Pulse Ox O2 Delivery O2 Flow Rate FiO2 03/31/17 12:00 95.7 83 18 91/68 (76) 96 03/31/17 08:00 96.0 94 18 96/67 (77) 97 03/31/17 04:00 97.4 90 17 105/67 (80) 96 03/31/17 00:00 97.1 96 16 105/68 (80) 98 03/30/17 23:30 96 03/30/17 20:00 88 03/30/17 20:00 97.0 93 18 119/75 (90) 97 03/30/17 16:00 95.5 90 18 121/74 (90) 99 I/O 03/30/17 03/30/17 03/30/17 03/31/17 03/31/17 03/31/17 07:00 15:00 23:00 07:00 15:00 23:00 Intake Total 800 ml 750 ml 480 ml Balance 800 ml 750 ml 480 ml Intake Oral 800 ml 750 ml 480 ml # Voids 4 3 3 1 # Bowel Movements 1 Result Diagram: 03/29/17 0630 03/31/17 0505 Imaging Last Impressions Abdomen MRI 03/30/17 0000 Signed Impressions: Service Date/Time: March 11:33 - CONCLUSION: Cirrhotic liver appearance. Upper abdominal varices with spontaneous splenorenal shunt. Deshawn Arenas MD Gastric Emptying Nuclear Medicine 03/28/17 0000 Signed Impressions: Service Date/Time: Tuesday, March 28, 2017 09:46 - CONCLUSION: Delayed gastric emptying. Pepe Saha MD Chest X-Ray 03/26/172026 Signed Impressions: Service Date/Time: Sunday, March 26, 2017 20:50 - CONCLUSION: Normal examination. Britton Miranda MD Abdomen/Pelvis CT 03/26/17 0000 Signed Impressions: Service Date/Time: Sunday, March 26, 2017 19:16 - CONCLUSION: 1. Cirrhosis and portal hypertension with numerous varices as described above. Britton Miranda MD Objective Remarks GENERAL: Resting comfortably. SKIN: No rashes, ecchymoses or lesions. Cool and dry. HEAD: Atraumatic. Normocephalic. No temporal or scalp tenderness. EYES: Pupils equal round and reactive. Extraocular motions intact. No scleral icterus. No injection or drainage. ENT: Nose without bleeding, purulent drainage or septal hematoma. Throat without erythema, tonsillar hypertrophy or exudate. Uvula midline. Airway patent. NECK: Trachea midline. No JVD or lymphadenopathy. Supple, nontender, no meningeal signs. CARDIOVASCULAR: Regular rate and rhythm without murmurs, gallops, or rubs. RESPIRATORY: Clear to auscultation. Breath sounds equal bilaterally. No wheezes , rales, or rhonchi. GASTROINTESTINAL: Abdomen soft, tender to palpation in the epigastric area. Nondistended. No peritoneal signs. No guarding. No palpable masses. MUSCULOSKELETAL: Extremities without clubbing, cyanosis, or edema. Bilateral lower extremity tenderness. NEUROLOGICAL: Awake and alert, mild confusion. Cranial nerves II through XII intact. Motor and sensory grossly within normal limits. Normal speech. PSYCH: Mood and affect appropriate. Procedures Cardiac catheterization 03/29/17 Medications and IVs Current Medications Medications (Trade) Dose Ordered Sig/Shae Route Start Time Stop Time Status Last Admin (NS Flush) 2 ml BID IV FLUSH 03/27/17 09:00 03/31/17 09:17 (NS Flush) 2 ml UNSCH PRN IV FLUSH 03/26/17 21:15 (Nitroglycerin 2% Oint) 1 inch Q6HR TOP 03/27/17 00:00 03/29/17 06:13 (Tylenol) 500 mg Q4H PRN PO 03/26/17 21:15 (Heparin Inj) 5,000 units Q8HR SQ 03/26/17 22:00 03/31/17 13:42 (D50w (Vial) Inj) 50 ml UNSCH PRN IV PUSH 03/26/17 21:15 (Glucagon Inj) 1 mg UNSCH PRN OTHER 03/26/17 21:15 (NovoLOG SUPPLEMENTAL SCALE) 1 ACHS SLIDING SCALE SQ 03/27/17 08:00 03/31/17 13:36 Sodium Chloride 1,000 ml @ 75 mls/hr [id number] IV 03/26/17 23:00 03/27/17 12:20 (Plavix) 75 mg DAILY PO 03/27/17 09:00 03/31/17 09:16 (Lopressor) 25 mg BID PO 03/27/17 09:00 03/31/17 09:16 (NovoLIN N INJ) 10 units DAILY SQ 03/27/17 12:00 03/31/17 10:40 (Neurontin) 600 mg TID PO 03/27/17 18:00 03/31/17 13:38 (Protonix Inj) 40 mg Q12H IV PUSH 03/27/17 18:00 03/31/17 05:28 Sodium Chloride 1,000 ml @ 30 mls/hr Q24H IV 03/28/17 15:27 04/02/17 15:26 03/29/17 06:19 (Benadryl) 25 mg RADIO BOARD OPERATOR PO 03/28/17 16:45 04/01/17 16:44 03/29/17 06:49 (Valium) 2.5 mg RADIO BOARD OPERATOR PO 03/28/17 17:00 04/01/17 16:59 03/29/17 06:49 (Pill Splitter) 1 ea UNSCH PRN OTHER 03/28/17 17:00 Lactated Ringer's 1,000 ml @ 30 mls/hr Q24H PRN IV 03/28/17 19:30 03/31/17 19:29 Sodium Chloride 500 ml @ 30 mls/hr [id number] PRN IV 03/28/17 19:30 03/31/17 19:29 (Lopressor) 25 mg RADIO BOARD OPERATOR PRN PO 03/28/17 19:30 03/31/17 19:29 (Betadine 5% Antisepsis Kit) 1 applic RADIO BOARD OPERATOR PRN EACH NARE 03/28/17 19:30 03/31/17 19:29 (Chlorhexidine 2% Cloth) 3 pack RADIO BOARD OPERATOR PRN TOPICAL 03/28/17 19:30 03/31/17 19:29 (NovoLIN R INJ) See Protocol Table ... RADIO BOARD OPERATOR PRN SQ 03/28/17 19:30 03/31/17 19:29 (Urecholine) 25 mg Q8HR PO 03/29/17 14:00 03/31/17 13:40 (Carafate Liq) 1 gm ACHS PO 03/29/17 17:00 03/31/17 13:40 (Miralax) 17 gm DAILY PO 03/29/17 13:00 03/31/17 09:16 (KlonoPIN) 0.5 mg Q8H PO 03/30/17 16:00 03/31/17 09:16 (SEROquel) 50 mg HS PO 03/30/17 21:00 03/30/17 20:16 (Msir) 15 mg Q6H PRN PO 03/30/17 16:45 03/31/17 09:16 (NovoLIN N INJ) 10 units HS SQ 03/30/17 21:00 03/30/17 21:36 (Habitrol 21 Mg Patch.24 Hr) 1 patch DAILY T-DERMAL 03/31/17 10:00 03/31/17 10:44 Miscellaneous Information 1 DAILY T-DERMAL 04/01/17 09:00 A/P Assessment and Plan 46-year-old male with a past medical history significant for CAD (started one month ago) hep C cirrhosis and uncontrolled diabetes mellitus presents to the emergency department with severe chest and abdominal pain and hyperglycemia. Chest pain with history of CAD Per patient, pain is similar as it was 1 month ago when he had a stent placed. EKG with normal sinus rhythm. Trops flat. May be s/t GI complaints. Cardiology consult appreciated. Status post catheterization which did not show occlusive disease. - Nitropatch as needed. - Follow with cardiology as an outpatient. - Continue Plavix. Discontinue aspirin per cardiology. Hyperglycemia/uncontrolled diabetes mellitus Patient given 10 units insulin in the ED. No anion gap. A1c 10.9%. - Sliding scale insulin every 4 hours - Per patient, he cannot afford his home NovoLog 70/30 and has been attempting to control his blood sugars with only Humalog. He states he does not know what his blood sugars normally run because his meter just reads "high". - Start NPH 10 units twice a day and consult the community health educator. Hepatitis C cirrhosis/portal hypertension/varices/ Elevated LFTs Patient with transaminitis and elevated alkaline phosphatase. Failed interferon treatment in 2002. Gastroenterology consulted. GES with delayed emptying. Medications per GI. LFTs are increasing. MRI showed: Cirrhotic liver appearance ; Upper abdominal varices with spontaneous splenorenal shunt. - trend LFTs. - follow up with GI. - erythromycin per GI. - check an ammonia level and start lactulose TID as he is endorsing confusion. GERD/ Dysphagia Patient reports he had an EGD 1 month ago in [facility] that was significant for severe reflux disease. Endorses difficulty swallowing. - Continue PPI. - GI following. - swallow eval. SI/ Anxiety The pt endorses SI. Psych consult appreciated. - d/c to psych when stable. PPx: Heparin Discharge Planning D/c to psych when tolerating diet, confusion is improved and if LFTs are stable. Jarrett Nicolas DO Mar 31, 2017 13:57
[2017-03-31] MEDS: LACTULOSE SYRUP 20 GM/30 ML CUP PO SCH ×2 (14:37→17:18)
[2017-03-31] MEDS: QUEtiapine FUMARATE 25 MG TAB PO SCH (21:30)
[2017-04-01] VITALS (8 sets, daily range): BP systolic 98–135; BP diastolic 54–79; PULSE 56–104; RESP 16–18; TEMP 96.5–98.1; O2SAT 96–100
[2017-04-01] MEDS: clonazePAM 0.5 MG TAB PO SCH ×4 (00:30→23:30)
[2017-04-01] MEDS: PANTOPRAZOLE SODIUM 40 MG VIAL IV PUSH SCH (05:06)
[2017-04-01] MEDS: BETHANECHOL CHL 25 MG TAB PO SCH ×3 (05:06→23:30)
[2017-04-01] MEDS: HEPARIN SODIUM - SQ 10,000 UNITS/ML VIAL SQ SCH ×3 (05:06→23:30)
[2017-04-01] MEDS: NITROGLYCERIN 2% OINT 1 GM PACKET TOP SCH ×5 (05:59→23:32)
[2017-04-01] MEDS: POLYETHYLENE GLYCOL 17 GM PKG PO SCH (07:46)
[2017-04-01] MEDS: LACTULOSE SYRUP 20 GM/30 ML CUP PO SCH ×3 (07:46→16:14)
[2017-04-01] MEDS: INSULIN ASPART SUPPLEMENTAL SCALE SQ SCH ×4 (08:00→20:38)
[2017-04-01] MEDS: INSULIN HUMAN NPH 1,000 UNITS/10 ML VIAL SQ SCH ×2 (08:46→20:37)
[2017-04-01] MEDS: SODIUM CHLORIDE 0.9% FLUSH 10 ML FLUSH IV FLUSH SCH ×2 (08:47→20:38)
[2017-04-01] MEDS: SUCRALFATE 1 GM/10 ML CUP PO SCH ×4 (08:47→20:38)
[2017-04-01] MEDS: NICOTINE 21 MG/24 HR PATCH T-DERMAL SCH (08:47)
[2017-04-01] MEDS: CLOPIDOGREL 75 MG TAB PO SCH (08:48)
[2017-04-01] MEDS: GABAPENTIN 300 MG CAP PO SCH ×3 (08:48→16:14)
[2017-04-01] MEDS: METOPROLOL TARTRATE 25 MG TAB PO SCH ×2 (08:48→20:37)
[2017-04-01] MEDS: REMOVE OLD PATCH T-DERMAL SCH (08:50)
[2017-04-01 11:32] LABS: ALKALINE PHOSPHATASE 216 U/L (45-117); ALT (GPT) 231 U/L (12-78); ANION GAP 6 MEQ/L (5-15); AST (GOT) 227 U/L (15-37); BICARBONATE 28.6 MEQ/L (21.0-32.0); BLOOD UREA NITROGEN 12 MG/DL (7-18); CHLORIDE 97 MEQ/L (98-107); GLOMERULAR FILTRATION RATE 100 ML/MIN (>89); POTASSIUM 3.9 MEQ/L (3.5-5.1); SODIUM (NA) 132 MEQ/L (136-145); TOTAL BILIRUBIN ADULT 0.7 MG/DL (0.2-1.0)
[2017-04-01] MEDS: SODIUM CHLOR 0.9% 1000 ML INJ 1,000 ML IV SCH ×2 (12:20→15:27)
[2017-04-01] MEDS ORDERED: INSULIN HUMAN NPH 1,000 UNITS/10 ML VIAL SQ SCH (12:45)
[2017-04-01] MEDS ORDERED: MORPHINE SULFATE 15 MG TAB PO PRN (13:00)
--- NOTE | 2017-04-01 15:12 | HHI.PR ---
Subjective Remarks The patient said he still felt loopy when standing up. He said that he needed to go to the bathroom. Discussed with nursing. Objective Vitals Vital Signs Date Time Temp Pulse Resp B/P (MAP) Pulse Ox O2 Delivery O2 Flow Rate FiO2 04/01/17 12:00 96.5 94 16 108/66 (80) 99 114/67 (83) 117/75 (89) 04/01/17 08:00 96.5 104 16 109/73 (85) 100 04/01/17 08:00 100 04/01/17 04:00 98.1 81 16 105/62 (76) 96 04/01/17 00:00 97.4 80 18 108/66 (80) 97 103/59 (74) 98/54 (69) 03/31/17 20:24 113 03/31/17 20:00 97.9 89 16 104/71 (82) 98 03/31/17 16:05 94 03/31/17 16:00 96.3 94 18 105/67 (80) 96 I/O 03/31/17 03/31/17 03/31/17 04/01/17 04/01/17 04/01/17 07:00 15:00 23:00 07:00 15:00 23:00 Intake Total 480 ml 800 ml 960 ml 960 ml Balance 480 ml 800 ml 960 ml 960 ml Intake Oral 480 ml 800 ml 960 ml 960 ml # Voids 1 4 2 2 # Bowel Movements 1 Result Diagram: 03/29/17 0630 04/01/17 1007 Imaging Last Impressions Abdomen MRI 03/30/17 0000 Signed Impressions: Service Date/Time: March 11:33 - CONCLUSION: Cirrhotic liver appearance. Upper abdominal varices with spontaneous splenorenal shunt. Deshawn Arenas MD Gastric Emptying Nuclear Medicine 03/28/17 0000 Signed Impressions: Service Date/Time: Tuesday, March 28, 2017 09:46 - CONCLUSION: Delayed gastric emptying. Pepe Saha MD Chest X-Ray 03/26/172026 Signed Impressions: Service Date/Time: Sunday, March 26, 2017 20:50 - CONCLUSION: Normal examination. Britton Miranda MD Abdomen/Pelvis CT 03/26/17 0000 Signed Impressions: Service Date/Time: Sunday, March 26, 2017 19:16 - CONCLUSION: 1. Cirrhosis and portal hypertension with numerous varices as described above. Britton Miranda MD Objective Remarks GENERAL: Resting comfortably. SKIN: No rashes, ecchymoses or lesions. Cool and dry. HEAD: Atraumatic. Normocephalic. No temporal or scalp tenderness. EYES: Pupils equal round and reactive. Extraocular motions intact. No scleral icterus. No injection or drainage. ENT: Nose without bleeding, purulent drainage or septal hematoma. Throat without erythema, tonsillar hypertrophy or exudate. Uvula midline. Airway patent. NECK: Trachea midline. No JVD or lymphadenopathy. Supple, nontender, no meningeal signs. CARDIOVASCULAR: Regular rate and rhythm without murmurs, gallops, or rubs. RESPIRATORY: Clear to auscultation. Breath sounds equal bilaterally. No wheezes , rales, or rhonchi. GASTROINTESTINAL: Abdomen soft, tender to palpation in the epigastric area. Nondistended. No peritoneal signs. No guarding. No palpable masses. MUSCULOSKELETAL: Extremities without clubbing, cyanosis, or edema. Bilateral lower extremity tenderness. NEUROLOGICAL: Awake and alert, mild confusion. Cranial nerves II through XII intact. Motor and sensory grossly within normal limits. Normal speech. PSYCH: Calm. Procedures Cardiac catheterization 03/29/17 Medications and IVs Current Medications Medications (Trade) Dose Ordered Sig/Shae Route Start Time Stop Time Status Last Admin (NS Flush) 2 ml BID IV FLUSH 03/27/17 09:00 04/01/17 08:47 (NS Flush) 2 ml UNSCH PRN IV FLUSH 03/26/17 21:15 (Nitroglycerin 2% Oint) 1 inch Q6HR TOP 03/27/17 00:00 03/29/17 06:13 (Tylenol) 500 mg Q4H PRN PO 03/26/17 21:15 (Heparin Inj) 5,000 units Q8HR SQ 03/26/17 22:00 04/01/17 12:40 (D50w (Vial) Inj) 50 ml UNSCH PRN IV PUSH 03/26/17 21:15 (Glucagon Inj) 1 mg UNSCH PRN OTHER 03/26/17 21:15 (NovoLOG SUPPLEMENTAL SCALE) 1 ACHS SLIDING SCALE SQ 03/27/17 08:00 04/01/17 12:21 (Plavix) 75 mg DAILY PO 03/27/17 09:00 04/01/17 08:48 (Lopressor) 25 mg BID PO 03/27/17 09:00 04/01/17 08:48 (Neurontin) 600 mg TID PO 03/27/17 18:00 04/01/17 12:18 Sodium Chloride 1,000 ml @ 30 mls/hr Q24H IV 03/28/17 15:27 04/02/17 15:26 03/29/17 06:19 (Benadryl) 25 mg IT SALES REPRESENTATIVE PO 03/28/17 16:45 04/01/17 16:44 03/29/17 06:49 (Valium) 2.5 mg IT SALES REPRESENTATIVE PO 03/28/17 17:00 04/01/17 16:59 03/29/17 06:49 (Pill Splitter) 1 ea UNSCH PRN OTHER 03/28/17 17:00 (Urecholine) 25 mg Q8HR PO 03/29/17 14:00 04/01/17 12:33 (Carafate Liq) 1 gm ACHS PO 03/29/17 17:00 04/01/17 12:18 (KlonoPIN) 0.5 mg Q8H PO 03/30/17 16:00 04/01/17 08:48 (SEROquel) 50 mg HS PO 03/30/17 21:00 03/31/17 21:30 (Habitrol 21 Mg Patch.24 Hr) 1 patch DAILY T-DERMAL 03/31/17 10:00 04/01/17 08:47 Miscellaneous Information 1 DAILY T-DERMAL 04/01/17 09:00 04/01/17 08:50 (Lactulose Liq) 30 ml TID PO 03/31/17 14:00 03/31/17 17:18 (NovoLIN N INJ) 20 units BID SQ 04/01/17 21:00 (Protonix) 40 mg Q12HR PO 04/01/17 21:00 UNV (Roxicodone) 5 mg Q4H PRN PO 04/01/17 15:00 UNV (NovoLIN N INJ) 10 units ONCE ONCE SQ 04/01/17 15:15 04/01/17 15:16 UNV A/P Assessment and Plan 46-year-old male with a past medical history significant for CAD (started one month ago) hep C cirrhosis and uncontrolled diabetes mellitus presents to the emergency department with severe chest and abdominal pain and hyperglycemia. Chest pain with history of CAD Per patient, pain is similar as it was 1 month ago when he had a stent placed. EKG with normal sinus rhythm. Trops flat. May be s/t GI complaints. Cardiology consult appreciated. Status post catheterization which did not show occlusive disease. - Nitropatch as needed. - Follow with cardiology as an outpatient. - Continue Plavix. Discontinue aspirin per cardiology. Hyperglycemia/uncontrolled diabetes mellitus Patient given 10 units insulin in the ED. No anion gap. A1c 10.9%. - Sliding scale insulin every 4 hours - Per patient, he cannot afford his home NovoLog 70/30 and has been attempting to control his blood sugars with only Humalog. He states he does not know what his blood sugars normally run because his meter just reads "high". - Increase NPH to 20 units twice a day and adjust as needed. - voucher clerk consult appreciated. Hepatitis C cirrhosis/portal hypertension/varices/ Elevated LFTs Patient with transaminitis and elevated alkaline phosphatase. Failed interferon treatment in 2002. Gastroenterology consulted. GES with delayed emptying. Medications per GI. LFTs are increasing. MRI showed: Cirrhotic liver appearance ; Upper abdominal varices with spontaneous splenorenal shunt. - trend LFTs. - follow up with GI. - erythromycin per GI. - ammonia level elevated. Start lactulose TID, titrate to 3-4 BMs daily. GERD/ Dysphagia Patient reports he had an EGD 1 month ago in [facility] that was significant for severe reflux disease. Endorses difficulty swallowing. - Continue PPI. Change to PO. - GI following. - swallow eval appreciated. ADAT. SI/ Anxiety The pt endorses SI. Psych consult appreciated. - d/c to psych when glucose better controlled. PPx: Heparin Discharge Planning D/c to psych when glucose better controlled Jarrett Nicolas DO Apr 01, 2017 15:12
[2017-04-01] MEDS ORDERED: INSULIN HUMAN NPH 1,000 UNITS/10 ML VIAL SQ ONE (15:15)
[2017-04-01] MEDS: QUEtiapine FUMARATE 25 MG TAB PO SCH (20:37)
[2017-04-01] MEDS: PANTOPRAZOLE SOD 40 MG DELAYED RELEASE TAB PO SCH (20:38)
[2017-04-02 00:38] VITALS: BP 128/77; PULSE 96; RESP 18; TEMP 98.2; O2SAT 99
[2017-04-02] MEDS: NITROGLYCERIN 2% OINT 1 GM PACKET TOP SCH (04:02)
[2017-04-02 04:46] VITALS: BP 127/73; PULSE 96; RESP 18; TEMP 97.8; O2SAT 99
[2017-04-02] MEDS: BETHANECHOL CHL 25 MG TAB PO SCH (05:31)
[2017-04-02] MEDS: HEPARIN SODIUM - SQ 10,000 UNITS/ML VIAL SQ SCH (05:32)
[2017-04-02 07:28] LABS: ALT (GPT) 206 U/L (12-78)
[2017-04-02 07:30] LABS: ALKALINE PHOSPHATASE 254 U/L (45-117); TOTAL BILIRUBIN ADULT 0.6 MG/DL (0.2-1.0)
[2017-04-02 07:41] LABS: ANION GAP 9 MEQ/L (5-15); BICARBONATE 26.6 MEQ/L (21.0-32.0); BLOOD UREA NITROGEN 10 MG/DL (7-18); CHLORIDE 99 MEQ/L (98-107); GLOMERULAR FILTRATION RATE 109 ML/MIN (>89); SODIUM (NA) 135 MEQ/L (136-145)
[2017-04-02 07:52] LABS: AST (GOT) 196 U/L (15-37); POTASSIUM 3.8 MEQ/L (3.5-5.1)
[2017-04-02 08:00] VITALS: BP 119/70; PULSE 95; RESP 20; TEMP 97.7; O2SAT 97
[2017-04-02] MEDS: METOPROLOL TARTRATE 25 MG TAB PO SCH (08:07)
[2017-04-02] MEDS: CLOPIDOGREL 75 MG TAB PO SCH (08:07)
[2017-04-02] MEDS: NICOTINE 21 MG/24 HR PATCH T-DERMAL SCH (08:07)
[2017-04-02] MEDS: clonazePAM 0.5 MG TAB PO SCH (08:07)
[2017-04-02] MEDS: SODIUM CHLORIDE 0.9% FLUSH 10 ML FLUSH IV FLUSH SCH (08:08)
[2017-04-02] MEDS: SUCRALFATE 1 GM/10 ML CUP PO SCH (08:08)
[2017-04-02] MEDS: GABAPENTIN 300 MG CAP PO SCH (08:08)
[2017-04-02] MEDS: PANTOPRAZOLE SOD 40 MG DELAYED RELEASE TAB PO SCH (08:08)
[2017-04-02] MEDS: INSULIN HUMAN NPH 1,000 UNITS/10 ML VIAL SQ SCH (08:08)
[2017-04-02] MEDS: LACTULOSE SYRUP 20 GM/30 ML CUP PO SCH (08:08)
[2017-04-02] MEDS: REMOVE OLD PATCH T-DERMAL SCH (08:10)
[2017-04-02] MEDS ORDERED: SERO25TA PO (09:14)
[2017-04-02] MEDS ORDERED: SUCR1S PO (09:14)
[2017-04-02] MEDS ORDERED: PANT40TA3 PO (09:14)
[2017-04-02] MEDS ORDERED: CLON.5 PO (09:14)
[2017-04-02] MEDS ORDERED: NOVONP2 SQ (09:14)
[2017-04-02] MEDS ORDERED: BETH25 PO (09:14)
[2017-04-02] MEDS ORDERED: NEUR300C PO (09:14)
[2017-04-02] MEDS ORDERED: LACT10SO PO (09:14)
[2017-04-02] MEDS ORDERED: OXYC-392 PO (09:14)
[2017-04-02] MEDS ORDERED: NICO21DI25 T-DERMAL (09:14)
[2017-04-02] MEDS: INSULIN ASPART SUPPLEMENTAL SCALE SQ SCH (09:14)
--- NOTE | 2017-04-02 09:17 | HHI.DCPOC ---
Discharge Care Plan Diagnosis: (1) Gastroparesis due to DM (2) Poorly controlled diabetes mellitus (3) History of coronary artery disease (4) Chest pain, rule out acute myocardial infarction (5) Adjustment disorder with mixed anxiety and depressed mood Goals to Promote Your Health * To prevent worsening of your condition and complications * To maintain your health at the optimal level Directions to Meet Your Goals Take your medications as prescribed Follow your dietary instruction Follow activity as directed Keep your appointments as scheduled Take your immunizations and boosters as scheduled If your symptoms worsen call your PCP, if no PCP go to Urgent Care Center or Emergency Room Smoking is Dangerous to Your Health. Avoid second hand smoke Call the 24-hour hour crisis hotline for domestic abuse at Jarrett Nicolas DO Apr 02, 2017 09:16
--- NOTE | 2017-04-02 09:25 | HHI.DS ---
Discharge Summary Admission Date Mar 26, 2017 at 21:11 Discharge Date: Apr 02, 2017 Admitting Diagnosis Poorly controlled DM, Chest pain with history of recent cardiac sten (1) Poorly controlled diabetes mellitus ICD Code: E11.65 - Type 2 diabetes mellitus with hyperglycemia Diagnosis: Principal Status: Acute (2) History of coronary artery disease ICD Code: Z86.79 - Personal history of other diseases of the circulatory system Status: Acute (3) Chest pain, rule out acute myocardial infarction ICD Code: R07.9 - Chest pain, unspecified Status: Acute (4) Adjustment disorder with mixed anxiety and depressed mood ICD Code: F43.23 - Adjustment disorder with mixed anxiety and depressed mood (5) Gastroparesis due to DM ICD Code: E11.43 - Type 2 diabetes mellitus with diabetic autonomic (poly) neuropathy; K31.84 - Gastroparesis Diagnosis: Principal Procedures Cardiac catheterization 03/29/17 Brief History - From Admission 46-year-old male with a past medical history significant for coronary artery disease stented approximately 1 month ago at [facility], hepatitis C with cirrhosis and uncontrolled diabetes mellitus presents to the emergency department with a one-day history of abdominal and chest pain. The patient states his chest pain started last night is a severe pressure and radiates down his left arm. He states the pain is similar to the pain he had approximately 1 month ago when he was stented at [facility]. He does not currently have a ed transporter, a primary care physician or a studio hand. The patient also complains of severe epigastric abdominal pain that is constant. His blood sugar in the emergency department is 645. Beta hydroxybutyrate pending. Initial troponin negative. Patient's other labs are significant for transaminitis and elevated alkaline phosphatase. CT of the abdomen/pelvis significant for cirrhosis and portal hypertension with numerous varices. CBC/BMP: 03/29/17 0630 04/02/17 0511 Significant Findings Laboratory Tests Test 03/30/17 15:21 03/31/17 05:05 03/31/17 16:18 04/01/17 10:07 Direct Bilirubin 0.5 MG/DL (0.0-0.2) Aspartate Amino Transf (AST/SGOT) 360 U/L (15-37) 290 U/L (15-37) 227 U/L (15-37) Alanine Aminotransferase (ALT/SGPT) 291 U/L (12-78) 268 U/L (12-78) 231 U/L (12-78) Alkaline Phosphatase 213 U/L (45-117) 199 U/L (45-117) 216 U/L (45-117) Albumin 3.1 GM/DL (3.4-5.0) 3.0 GM/DL (3.4-5.0) 2.8 GM/DL (3.4-5.0) Random Glucose 173 MG/DL (74-106) 352 MG/DL (74-106) Total Bilirubin 1.1 MG/DL (0.2-1.0) Ammonia 38 MCMOL/L (11-32) Total Protein 6.1 GM/DL (6.4-8.2) Sodium Level 132 MEQ/L (136-145) Chloride Level 97 MEQ/L (98-107) Test 04/02/17 05:11 Random Glucose 357 MG/DL (74-106) Total Protein 6.1 GM/DL (6.4-8.2) Albumin 2.8 GM/DL (3.4-5.0) Calcium Level 8.3 MG/DL (8.5-10.1) Alkaline Phosphatase 254 U/L (45-117) Aspartate Amino Transf (AST/SGOT) 196 U/L (15-37) Alanine Aminotransferase (ALT/SGPT) 206 U/L (12-78) Sodium Level 135 MEQ/L (136-145) Imaging Last Impressions Abdomen MRI 03/30/17 0000 Signed Impressions: Service Date/Time: March 11:33 - CONCLUSION: Cirrhotic liver appearance. Upper abdominal varices with spontaneous splenorenal shunt. Deshawn Arenas MD Gastric Emptying Nuclear Medicine 03/28/17 0000 Signed Impressions: Service Date/Time: Tuesday, March 28, 2017 09:46 - CONCLUSION: Delayed gastric emptying. Pepe Saha MD Chest X-Ray 03/26/172026 Signed Impressions: Service Date/Time: Sunday, March 26, 2017 20:50 - CONCLUSION: Normal examination. Britton Miranda MD Abdomen/Pelvis CT 03/26/17 0000 Signed Impressions: Service Date/Time: Sunday, March 26, 2017 19:16 - CONCLUSION: 1. Cirrhosis and portal hypertension with numerous varices as described above. Britton Miranda MD PE at Discharge GENERAL: Resting comfortably. SKIN: No rashes, ecchymoses or lesions. Cool and dry. HEAD: Atraumatic. Normocephalic. No temporal or scalp tenderness. EYES: Pupils equal round and reactive. Extraocular motions intact. No scleral icterus. No injection or drainage. ENT: Nose without bleeding, purulent drainage or septal hematoma. Throat without erythema, tonsillar hypertrophy or exudate. Uvula midline. Airway patent. NECK: Trachea midline. No JVD or lymphadenopathy. Supple, nontender, no meningeal signs. CARDIOVASCULAR: Regular rate and rhythm without murmurs, gallops, or rubs. RESPIRATORY: Clear to auscultation. Breath sounds equal bilaterally. No wheezes , rales, or rhonchi. GASTROINTESTINAL: Abdomen soft, tender to palpation in the epigastric area. Nondistended. No peritoneal signs. No guarding. No palpable masses. MUSCULOSKELETAL: Extremities without clubbing, cyanosis, or edema. Bilateral lower extremity tenderness. NEUROLOGICAL: Awake and alert, mild confusion. Cranial nerves II through XII intact. Motor and sensory grossly within normal limits. Normal speech. PSYCH: Calm. Pt update on day of discharge The patient said that he had no problems taking the NPH but was concerned about taking the aspart so close to the dose of the NPH. He said he has been able to eat but it is still process. He still wants to go psychiatry. Discussed with nursing. Hospital Course Chest pain with history of CAD 46-year-old male with a past medical history significant for CAD (started one month ago) hep C, cirrhosis and uncontrolled diabetes mellitus presents to the emergency department with severe chest and abdominal pain and hyperglycemia. Per patient, the pain is similar as it was 1 month ago when he had a stent placed. EKG with normal sinus rhythm. Trops flat. Cardiology was consulted. Status post catheterization which did not show occlusive disease. The pt received a Nitropatch as needed. He will follow with cardiology as an outpatient. He will continue Plavix. We discontinued aspirin per cardiology recommendation. The pt's abdominal pain was treated as below. Hyperglycemia/uncontrolled diabetes mellitus Glucose was 645 in the ED. No anion gap. He received insulin. A1c is 10.9%. He was started on a sliding scale. Per patient, he cannot afford his home NovoLog 70/30 and has been attempting to control his blood sugars with only Humalog. He states he does not know what his blood sugars normally run because his meter just reads "high". He was started on NPH which was increased to 25 units twice a day. The pt would refuse sliding scale coverage at times, which made controlling his blood sugar level quite difficult. The wellness educator was consulted. The pt will need to adhere to a diabetic diet and follow up with endocrinology. Hepatitis C cirrhosis/ portal hypertension/ varices/ Elevated LFTs Patient with transaminitis and elevated alkaline phosphatase. Failed interferon treatment in 2002. Gastroenterology was consulted. GES with delayed emptying. 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 Ammonia level was elevated so he was started on lactulose. He was also started on bethanechol. He will follow up with GI. GERD/ Dysphagia Patient reports he had an EGD 1 month ago in [facility] that was significant for severe reflux disease. Endorses difficulty swallowing. He received a PPI BID. He worked with speech therapy. SI/ Anxiety The pt endorsed suicidal ideation. Psychiatry was consulted. Will d/c to psychiatry for further management. Currently on clonazepam and Seroquel. Pt Condition on Discharge: Stable Discharge Disposition: Disc to Psych Care Fac Discharge Time: > 30 minutes Discharge Instructions DIET: Follow Instructions for: Diabetic Diet Activities you can perform: Regular-No Restrictions Follow up Referrals: Cardiology - 2 Weeks Endocrinology - 1 Week Gastroenterology - 1 Week @ [facility] PCP Follow-up - 1 Week New Medications: Insulin Syringe/Needle U-100 (Insulin Syringe/0.5ML/30G 30G X 1/2" 0.5 ml) 1 Mis Mis EA .ROUTE DIRECTED for Blood Sugar Management, #30 Lactulose Liq (Lactulose Liq) 10 Gm/15 Ml Soln 30 ML PO Q6H PRN for Liver for 30 Days, #3600 ML 0 Refills Titrate 3-4 bowel movements daily Bethanechol (Urecholine) 25 Mg Tab 25 MG PO Q8HR for Gastroparesis, #90 TAB Clonazepam (Klonopin) 0.5 Mg Tab 0.5 MG PO Q8H PRN for ANXIETY, #15 TAB Gabapentin (Neurontin) 300 Mg Cap 600 MG PO TID for Neuropathy for 30 Days, CAP Insulin Human NPH Inj (Novolin N Inj) 1,000 Unit/10 Ml Vial 25 UNITS SQ BID for Blood Pressure Management for 30 Days, INJECTION Nicotine (Eq Nicotine) 21 Mg/24 Hour Dis 1 PATCH T-DERMAL DAILY for SMOKING, #30 PATCH Oxycodone (Oxycodone) 5 Mg Tab 5 MG PO Q6HR PRN for pain 3-10, #12 TAB Pantoprazole (Pantoprazole) 40 Mg Tab 40 MG PO Q12HR for Stomach, #60 TAB Quetiapine (Seroquel) 25 Mg Tab 50 MG PO HS for Mood, #30 TAB Sucralfate Liq (Sucralfate Liq) 1 Gram/10 Ml Cristiana 1 GM PO ACHS for Stomach for 30 Days, BOTTLE Continued Medications: Clopidogrel (Clopidogrel) 75 Mg Tab 75 MG PO DAILY for Blood Clot Prevention, #30 TAB 0 Refills Insulin Aspart Inj (Novolog Inj) 1,000 Unit/10 Ml Vial 0 SQ DIRECTED for Blood Sugar Management, #10 ML 0 Refills Sliding Scale as directed. Metoprolol Tartrate (Metoprolol Tartrate) 25 Mg Tab 25 MG PO BID, #60 TAB 0 Refills Discontinued Medications: Aspirin (Aspirin) 81 Mg Chew 81 MG CHEW DAILY, TAB 0 Refills Famotidine (Famotidine) 40 Mg Tab 40 MG PO HS, #30 TAB 0 Refills Gabapentin (Gabapentin) 300 Mg Cap 300 MG PO TID, #90 CAP 0 Refills Hydrocodone-Acetaminophen (Hydrocodone-Acetaminophen) 5-325 mg Tab 1 TAB PO TID PRN for PAIN, TAB 0 Refills Insulin Human Isophane-Regular 70-30 Inj (Novolin 70-30 Inj) 1,000 Unit/10 Ml Vial 10 UNITS SQ for Blood Sugar Management, ML 0 Refills Jarrett Nicolas DO Apr 02, 2017 09:25
[2017-04-02] MEDS ORDERED: INSULIN SYRINGE1 M10 (09:30)
== END 2017-04-02 11:46 | DRG 74 ==
LOC: NEPE 17:20 → NEDA 20:24 → OBSVTOIN 21:11 → N06A 23:15
PROVIDERS: ADMIT Hospitalist; ATTEND Hospitalist
PROC: B2111ZZ Fluoroscopy of Multiple Coronary Arteries using Low Osmolar Contrast (ICD-10-PCS; 2017-03-29)
PROC: B2151ZZ Fluoroscopy of Left Heart using Low Osmolar Contrast (ICD-10-PCS; 2017-03-29)
PROC: 4A023N7 Measurement of Cardiac Sampling and Pressure, Left Heart, Percutaneous Approach (ICD-10-PCS; principal; 2017-03-29 07:15)
DX: E11.43 Type 2 diabetes mellitus with diabetic autonomic (poly)neuropathy (principal); I85.00 Esophageal varices without bleeding; K76.6 Portal hypertension; R45.851 Suicidal ideations; D69.6 Thrombocytopenia, unspecified; E11.42 Type 2 diabetes mellitus with diabetic polyneuropathy; E11.65 Type 2 diabetes mellitus with hyperglycemia; K31.84 Gastroparesis; K74.60 Unspecified cirrhosis of liver; K40.90 Unilateral inguinal hernia, without obstruction or gangrene, not specified as recurrent; B19.20 Unspecified viral hepatitis C without hepatic coma; T38.3X6A Underdosing of insulin and oral hypoglycemic [antidiabetic] drugs, initial encounter; K21.0 Gastro-esophageal reflux disease with esophagitis; K59.00 Constipation, unspecified; R13.10 Dysphagia, unspecified; I25.10 Atherosclerotic heart disease of native coronary artery without angina pectoris; R07.9 Chest pain, unspecified; I86.4 Gastric varices; F12.90 Cannabis use, unspecified, uncomplicated; F17.210 Nicotine dependence, cigarettes, uncomplicated; F43.23 Adjustment disorder with mixed anxiety and depressed mood; Z79.4 Long term (current) use of insulin; Z91.120 Patient's intentional underdosing of medication regimen due to financial hardship; Z95.5 Presence of coronary angioplasty implant and graft
CPT/HCPCS: 71010; 74177; 74183; 78264; 80048; 80053; 80076; 82010; 82105; 82140; 82550; 82948; 83036; 83690; 83735; 84484; 85025; 85576; 85610; 93005; 93458; 96361; 96372; 96374; 99152; 99153; A9541; A9579; C1769; C1893; C9113; J1644; J1815; J1885; J2250; J2270; J2405; J2765; J3010; J7030; Q9967

== ENCOUNTER 2017-04-02 10:51 | Inpatient (IN) | payer SELFPAY ==
[~2017-04-02] VITALS: Ht 185.4 cm; Wt 79.8 kg
[~2017-04-02 10:51] MED LIST: ASPI-516 CHEW; BETH25 PO; CLON.5 PO; CLOP75TA PO; FAMO40TA PO; GABA300C5 PO; HYDR-3516 PO; INSULIN SYRINGE1 M10; LACT10SO PO; METO25TA3 PO; NEUR300C PO; NICO21DI25 T-DERMAL; NOVO7030P2 SQ; NOVOLOGP2 SQ; NOVONP2 SQ; OXYC-392 PO; PANT40TA3 PO; SERO25TA PO; SUCR1S PO
[2017-04-02 12:02] VITALS: BP 118/66; PULSE 93; RESP 16; TEMP 97.6; O2SAT 99
[2017-04-02] MEDS ORDERED: NICOTINE 21 MG/24 HR PATCH T-DERMAL SCH (14:45)
[2017-04-02] MEDS: NICOTINE 21 MG/24 HR PATCH T-DERMAL SCH (14:45)
[2017-04-02] MEDS ORDERED: ALUMINUM/MAGNESIUM/SIMETH 30 ML CUP PO PRN (14:45)
[2017-04-02] MEDS ORDERED: LORazepam 1 MG TAB PO PRN (14:45)
[2017-04-02] MEDS ORDERED: LORazepam 0.5 MG TAB PO PRN (14:45)
[2017-04-02] MEDS: INSULIN HUMAN NPH 1,000 UNITS/10 ML VIAL SQ SCH ×2 (14:45→21:00)
[2017-04-02] MEDS ORDERED: ACETAMINOPHEN 325 MG TAB PO PRN (14:45)
[2017-04-02] MEDS ORDERED: LORazepam 2 MG/ML VIAL IM PRN ×2 (14:45)
[2017-04-02] MEDS ORDERED: MAGNESIUM HYDROXIDE SUSP 30 ML CUP PO PRN (14:45)
[2017-04-02] MEDS: CLOPIDOGREL 75 MG TAB PO SCH (15:13)
[2017-04-02] MEDS: METOPROLOL TARTRATE 25 MG TAB PO SCH ×2 (15:13→21:00)
[2017-04-02] MEDS: BETHANECHOL CHL 25 MG TAB PO SCH ×2 (16:56→22:00)
[2017-04-02] MEDS ORDERED: GLUCAGON 1 MG/ML VIAL OTHER PRN (17:15)
[2017-04-02] MEDS ORDERED: DEXTROSE 50% IN WATER 50 ML VIAL(D50) IV PUSH PRN (17:15)
[2017-04-02] MEDS: GABAPENTIN 300 MG CAP PO SCH (17:43)
[2017-04-02] MEDS: INSULIN ASPART SUPPLEMENTAL SCALE SQ SCH ×2 (17:43→22:26)
[2017-04-02 21:30] VITALS: BP 132/74; PULSE 96; RESP 20
[2017-04-02] MEDS: QUEtiapine FUMARATE 25 MG TAB PO SCH (22:26)
[2017-04-03] MEDS: BETHANECHOL CHL 25 MG TAB PO SCH ×3 (05:33→21:36)
[2017-04-03 06:17] VITALS: BP 114/72; PULSE 92; RESP 17; TEMP 97.4; O2SAT 94
[2017-04-03] MEDS: INSULIN ASPART SUPPLEMENTAL SCALE SQ SCH ×4 (08:12→21:35)
[2017-04-03] MEDS: NICOTINE 21 MG/24 HR PATCH T-DERMAL SCH (09:00)
[2017-04-03 09:02] LABS: ANION GAP 8 MEQ/L (5-15); BLOOD UREA NITROGEN 10 MG/DL (7-18); CHLORIDE 105 MEQ/L (98-107); GLOMERULAR FILTRATION RATE 132 ML/MIN (>89); HDL CHOLESTEROL 47.7 MG/DL (40.0-60.0); LDL CHOLESTEROL 49 MG/DL (0-99); POTASSIUM 3.8 MEQ/L (3.5-5.1); SODIUM (NA) 139 MEQ/L (136-145)
[2017-04-03] MEDS: METOPROLOL TARTRATE 25 MG TAB PO SCH ×2 (09:39→21:36)
[2017-04-03] MEDS: GABAPENTIN 300 MG CAP PO SCH ×3 (09:40→17:27)
[2017-04-03] MEDS: CLOPIDOGREL 75 MG TAB PO SCH (09:40)
[2017-04-03] MEDS: INSULIN HUMAN NPH 1,000 UNITS/10 ML VIAL SQ SCH ×2 (09:41→21:35)
[2017-04-03] MEDS ORDERED: LACTULOSE SYRUP 20 GM/30 ML CUP PO PRN (11:15)
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
[2017-04-03] MEDS: SERTRALINE HCL 50 MG TAB PO SCH (11:55)
[2017-04-03] MEDS: SUCRALFATE 1 GM/10 ML CUP PO SCH ×3 (11:56→21:36)
--- NOTE | 2017-04-03 14:35 | PD.CONS ---
HPI Service [facility] Consult Requested By Dr. Irwin Reason for Consult Medical management Primary Care Physician No Primary Care Physician Diagnoses: History of Present Illness 46-year-old male with a past medical history significant for coronary artery disease stented approximately 1 month ago at [facility], hepatitis C with cirrhosis and uncontrolled diabetes mellitus presented to the emergency department with abdominal and chest pain. He states the pain is similar to the pain he had approximately 1 month ago when he was stented at [facility]. He was evaluated by cardiology who performed a catheterization which not show any obstructive disease. He was also evaluated by gastroenterology who had a gastric emptying study performed and the patient was found to have gastroparesis. He was started on a GI regimen. His blood sugar in the emergency department was 645. It was difficult controlling his blood sugar because the patient would decline doses of insulin throughout the hospitalization. His glucose readings were finally manageable. He was also evaluated by psychiatry and the patient was agreeable to go for voluntary psychiatric hospitalization. The patient was stable medically he was transferred to the psychiatric unit. Medicine is consulted to resume medical management. The patient is currently resting comfortably. He requests pain medication that has been discontinued. He says they are trying to improve his insulin regimen. No acute concerns at this time. Review of Systems Except as stated in HPI: all other systems reviewed are Neg Past Family Social History Allergies: Coded Allergies: No Known Allergies (Unverified , 03/26/17) Past Medical History GERD CAD Cirrhosis Hepatitis Cpatient failed interferon therapy in 2002 Uncontrolled diabetes mellitus Lower extremity neuropathy Past Surgical History Esophageal rupture in 2001 Cholecystectomy in November 2016 Cardiac catheterization with stent placement one month ago at [facility] Active Ordered Medications Current Medications Medications (Trade) Dose Ordered Sig/Shae Route Start Time Stop Time Status Last Admin (Urecholine) 25 mg Q8HR PO 04/02/17 14:45 04/03/17 14:15 (KlonoPIN) 0.5 mg Q8H PRN PO 04/02/17 14:45 (Plavix) 75 mg DAILY PO 04/02/17 14:45 04/03/17 09:40 (Neurontin) 600 mg TID PO 04/02/17 18:00 04/03/17 11:56 (NovoLIN N INJ) 25 units BID SQ 04/02/17 14:45 04/03/17 09:41 (Lopressor) 25 mg BID PO 04/02/17 14:45 04/03/17 09:39 (Habitrol 21 Mg Patch.24 Hr) 1 patch DAILY T-DERMAL 04/02/17 14:45 04/03/17 09:00 (SEROquel) 50 mg HS PO 04/02/17 21:00 04/02/17 22:26 (Milk Of Magnesia Liq) 30 ml DAILY PRN PO 04/02/17 14:45 (Mag-Al Plus Susp Liq) 30 ml Q6H PRN PO 04/02/17 14:45 (D50w (Vial) Inj) 50 ml UNSCH PRN IV PUSH 04/02/17 17:15 (Glucagon Inj) 1 mg UNSCH PRN OTHER 04/02/17 17:15 (NovoLOG SUPPLEMENTAL SCALE) 1 ACHS SLIDING SCALE SQ 04/02/17 17:45 04/03/17 11:58 (Tylenol) 650 mg Q4H PRN PO 04/03/17 11:15 (Zoloft) 50 mg DAILY PO 04/03/17 11:15 04/03/17 11:55 (Lactulose Liq) 30 ml Q6H PRN PO 04/03/17 11:15 (Protonix) 40 mg Q12HR PO 04/03/17 21:00 (Carafate Liq) 1 gm ACHS PO 04/03/17 12:00 04/03/17 11:56 Miscellaneous Information 1 HS T-DERMAL 04/03/17 21:00 Family History Patient was adopted, unaware of his family history Social History Smokes one pack per day 32 years. Occasional marijuana use. Quit alcohol and IV drugs in 2011. Physical Exam Vital Signs Vital Signs Date Time Temp Pulse Resp B/P (MAP) Pulse Ox O2 Delivery O2 Flow Rate FiO2 04/03/17 06:17 97.4 92 17 114/72 (86) 94 04/02/17 21:30 96 20 132/74 (93) Physical Exam GENERAL: Resting comfortably. SKIN: No rashes, ecchymoses or lesions. Cool and dry. HEAD: Atraumatic. Normocephalic. No temporal or scalp tenderness. EYES: Pupils equal round and reactive. Extraocular motions intact. No scleral icterus. No injection or drainage. ENT: Nose without bleeding, purulent drainage or septal hematoma. Throat without erythema, tonsillar hypertrophy or exudate. Uvula midline. Airway patent. NECK: Trachea midline. No JVD or lymphadenopathy. Supple, nontender, no meningeal signs. CARDIOVASCULAR: Regular rate and rhythm without murmurs, gallops, or rubs. RESPIRATORY: Clear to auscultation. Breath sounds equal bilaterally. No wheezes , rales, or rhonchi. GASTROINTESTINAL: Abdomen soft, tender to palpation in the epigastric area. Nondistended. No peritoneal signs. No guarding. No palpable masses. MUSCULOSKELETAL: Extremities without clubbing, cyanosis, or edema. Bilateral lower extremity tenderness. NEUROLOGICAL: Awake and alert, mild confusion. Cranial nerves II through XII intact. Motor and sensory grossly within normal limits. Normal speech. PSYCH: Calm. Laboratory Laboratory Tests Test 04/03/17 07:40 Blood Urea Nitrogen 10 Creatinine 0.65 Random Glucose 240 Calcium Level 8.6 Sodium Level 139 Potassium Level 3.8 Chloride Level 105 Carbon Dioxide Level 26.0 Anion Gap 8 Estimat Glomerular Filtration Rate 132 Triglycerides Level 282 Cholesterol Level 153 LDL Cholesterol 49 HDL Cholesterol 47.7 Cholesterol/HDL Ratio 3.20 Result Diagram: 04/03/17 0740 Assessment and Plan Assessment and Plan Chest pain with history of CAD Per patient, pain is similar as it was 1 month ago when he had a stent placed. EKG with normal sinus rhythm. Trops flat. May be s/t GI complaints. Cardiology consulted in the hospital. Status post catheterization which did not show occlusive disease. - Nitropatch as needed. - Follow with cardiology as an outpatient. - Continue Plavix. Discontinue aspirin per cardiology. Hyperglycemia/uncontrolled diabetes mellitus A1c 10.9%. - Sliding scale insulin. - Per patient, he cannot afford his home NovoLog 70/30 and has been attempting to control his blood sugars with only Humalog. He states he does not know what his blood sugars normally run because his meter just reads "high". Increased NPH to 20 units twice a day and adjust as needed. - life educator consulted while in the hospital. Hepatitis C cirrhosis/portal hypertension/varices/ Elevated LFTs/ gastroparesis Patient with transaminitis and elevated alkaline phosphatase. Failed interferon treatment in 2002. Gastroenterology consulted in the hospital. GES with delayed emptying. LFTs were increasing. 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 - trend LFTs. - follow up with GI as an outpt. - bethanechol. - ammonia level elevated. Start lactulose TID, titrate to 3-4 BMs daily. GERD/ Dysphagia Patient reports he had an EGD 1 month ago in [facility] that was significant for severe reflux disease. Endorses difficulty swallowing. - Continue PPI. Change to PO. - ADAT. SI/ Anxiety Stable. - management per psych. PPx: Heparin Discussed Condition With Pt, nurse Jarrett Nicolas DO Apr 03, 2017 14:35
[2017-04-03 16:50] LABS: HEMOGLOBIN A1a 1.1 %; HEMOGLOBIN A1b 0.8 %; HEMOGLOBIN Ao 79.1 %; HEMOGLOBIN F 1.7 %; HEMOGLOBIN LA1C 2.8 %; HEMOGLOBIN P3 4.3 %
[2017-04-03 17:25] VITALS: BP 113/73; PULSE 88; RESP 16; TEMP 97.9; O2SAT 95
[2017-04-03] MEDS: REMOVE OLD NICODERM (NICOTINE) PATCH T-DERMAL SCH (21:00)
[2017-04-03] MEDS: QUEtiapine FUMARATE 25 MG TAB PO SCH (21:36)
[2017-04-03] MEDS: PANTOPRAZOLE SOD 40 MG DELAYED RELEASE TAB PO SCH (21:36)
[2017-04-03] MEDS: clonazePAM 0.5 MG TAB PO PRN (22:06)
[2017-04-04] MEDS: BETHANECHOL CHL 25 MG TAB PO SCH ×3 (05:57→21:23)
[2017-04-04 06:00] VITALS: BP 155/93; PULSE 84; RESP 18; TEMP 97.9; O2SAT 99
[2017-04-04] MEDS: INSULIN ASPART SUPPLEMENTAL SCALE SQ SCH ×4 (08:00→21:24)
[2017-04-04] MEDS ORDERED: NICOTINE 21 MG/24 HR PATCH T-DERMAL SCH (09:00)
[2017-04-04] MEDS: GABAPENTIN 300 MG CAP PO SCH ×3 (09:09→16:30)
[2017-04-04] MEDS: METOPROLOL TARTRATE 25 MG TAB PO SCH ×2 (09:09→21:21)
[2017-04-04] MEDS: SERTRALINE HCL 50 MG TAB PO SCH (09:09)
[2017-04-04] MEDS: PANTOPRAZOLE SOD 40 MG DELAYED RELEASE TAB PO SCH ×2 (09:10→21:21)
[2017-04-04] MEDS: SUCRALFATE 1 GM/10 ML CUP PO SCH ×4 (09:10→21:21)
[2017-04-04] MEDS: CLOPIDOGREL 75 MG TAB PO SCH (09:10)
[2017-04-04] MEDS: INSULIN HUMAN NPH 1,000 UNITS/10 ML VIAL SQ SCH ×2 (09:18→21:23)
[2017-04-04] MEDS: NICOTINE 21 MG/24 HR PATCH T-DERMAL SCH (09:18)
--- NOTE | 2017-04-04 10:07 | PD.TTN ---
Patient Problems 1. Discharge planning 2. Medication compliance 3. Knowledge deficit 4. Lack of coping skills Progress Toward Goals Provider Present: Dr. Sue Irwin Provider Input: Dr. Irwin met to discuss treatment plan, discharge and medication. Patient meets criteria at this time, patient is presenting depressed Nurse(s) Input: Patient's nurse Marylin reports patient looks depressed but does have history of maglingering on unit. Psychiatric Counselors Present: AURELIO MckeonBrice Psych Therapist Input: Patient seen today lying in his bed. Patient reports feeling suicidal and homicidal, 'says he wants to go out with a bang, has nothing to live for" Patient states he is eating and sleeping well. Patient's speech was clear, organized with pressure. Patient made poor eye contact. Group Spec/RT/OT/FLORES Present: NOE Valles Group Spec/RT/OT/FLORES Input: Patient is new. Documentation Teaching Recipient: Patient JocelynGena PURDY Apr 04, 2017 10:07
--- NOTE | 2017-04-04 11:12 | HHI.PYPN ---
Subjective Chief Complaint: severe depression with psychosis and suicidal ideation intent and plan Remarks Patient seen in his room with medical student patricia, chart reviewed, patient compliant medication. Patient continues depressed with 2-3+ psychomotor retardation. He still would take the suicide pill if offered. He continues hopeless and helpless. However his eye contact was slightly improved today his verbal output was slightly improved today along with slight increase in its rate and rhythm. For now continue treatment Review of Systems Except as stated in HPI: all other systems reviewed are Neg Mental Status Examination Appearance: Appropriate Consciousness: Alert Orientation: x4 Motor Activity: Normal gait Speech: Slow Language: Adequate Fund of Knowledge: Adequate Attention and Concentration: Other Memory: Unremarkable (there) Mood: Sad Affect: Other (, moderate psychomotor retardation with decreased range intensity of his affect) Thought Process & Associations: Intact Thought Content: Hallucinations Hallucination Type: Auditory, Visual Delusion Type: None Suicidal Ideation: Yes Suicidal Plan: Yes (patient would take the suicide pill if offered) Suicidal Intention: Yes (patient would take the suicide pill if offered) Homicidal Ideation: No Homicidal Plan: No Homicidal Intention: No Insight: Poor Judgment: Poor Results Labs Test 04/04/17 09:58 Vitals/IOs Vital Signs Date Time Temp Pulse Resp B/P (MAP) Pulse Ox O2 Delivery O2 Flow Rate FiO2 04/04/17 06:00 97.9 84 18 155/93 (113) 99 Intake and Output 04/04/17 04/04/17 04/05/17 08:00 16:00 00:00 Intake Total 240 ml Balance 240 ml Assessment & Plan Problem List: (1) Major depressive disorder, recurrent, severe with psychotic features ICD Codes: F33.3 - Major depressive disorder, recurrent, severe with psychotic symptoms Assessment & Plan Estimated LOS: days patient continues depressed actively suicidal with intent and plan to take the suicide pill if offered. Is compliant with medication. For now continue treatment Justification for Cont. Inpt. At this time patient will decompensate if placed a lower level of care Discharge Planning Patient probably to return home with his sister Request HC Surrog/Guard Advoc?: Deshawn Shepard MD Apr 04, 2017 11:12
[2017-04-04 11:14] LABS: ANION GAP 8 MEQ/L (5-15); AST (GOT) 152 U/L (15-37); BICARBONATE 27.4 MEQ/L (21.0-32.0); BLOOD UREA NITROGEN 13 MG/DL (7-18); CHLORIDE 103 MEQ/L (98-107); GLOMERULAR FILTRATION RATE 116 ML/MIN (>89); POTASSIUM 4.1 MEQ/L (3.5-5.1); SODIUM (NA) 138 MEQ/L (136-145)
[2017-04-04 11:19] LABS: ALKALINE PHOSPHATASE 204 U/L (45-117); ALT (GPT) 171 U/L (12-78); TOTAL BILIRUBIN ADULT 0.7 MG/DL (0.2-1.0)
--- NOTE | 2017-04-04 14:41 | HHI.PR ---
Subjective Remarks 46-year-old male with a past medical history significant for coronary artery disease stented approximately 1 month ago at [facility], hepatitis C with cirrhosis and uncontrolled diabetes mellitus presented to the emergency department with abdominal and chest pain. He states the pain is similar to the pain he had approximately 1 month ago when he was stented at [facility]. He was evaluated by cardiology who performed a catheterization which not show any obstructive disease. He was also evaluated by gastroenterology who had a gastric emptying study performed and the patient was found to have gastroparesis. He was started on a GI regimen. His blood sugar in the emergency department was 645. It was difficult controlling his blood sugar because the patient would decline doses of insulin throughout the hospitalization. His glucose readings were finally manageable. He was also evaluated by psychiatry and the patient was agreeable to go for voluntary psychiatric hospitalization. The patient was stable medically he was transferred to the psychiatric unit. Medicine is consulted to resume medical management. The patient is currently resting comfortably. He requests pain medication that has been discontinued. He says they are trying to improve his insulin regimen. No acute concerns at this time. 04-04 NO NEW COMPLAINTS DW RN AND PT AND PSYCHIATRY Objective Vitals Vital Signs Date Time Temp Pulse Resp B/P (MAP) Pulse Ox O2 Delivery O2 Flow Rate FiO2 04/04/17 06:00 97.9 84 18 155/93 (113) 99 04/03/17 17:25 97.9 88 16 113/73 (86) 95 I/O 04/03/17 04/03/17 04/03/17 04/04/17 04/04/17 04/04/17 07:00 15:00 23:00 07:00 15:00 23:00 Intake Total 240 ml Balance 240 ml Intake Oral 240 ml Result Diagram: 04/04/17 0958 Other Results Laboratory Tests Test 04/03/17 07:40 04/04/17 09:58 Blood Urea Nitrogen 10 MG/DL 13 MG/DL Creatinine 0.65 MG/DL 0.73 MG/DL Random Glucose 240 MG/DL 257 MG/DL Calcium Level 8.6 MG/DL 8.8 MG/DL Sodium Level 139 MEQ/L 138 MEQ/L Potassium Level 3.8 MEQ/L 4.1 MEQ/L Chloride Level 105 MEQ/L 103 MEQ/L Carbon Dioxide Level 26.0 MEQ/L 27.4 MEQ/L Anion Gap 8 MEQ/L 8 MEQ/L Estimat Glomerular Filtration Rate 132 ML/MIN 116 ML/MIN Hemoglobin A1c 10.2 % Triglycerides Level 282 MG/DL Cholesterol Level 153 MG/DL LDL Cholesterol 49 MG/DL HDL Cholesterol 47.7 MG/DL Cholesterol/HDL Ratio 3.20 RATIO Total Protein 6.4 GM/DL Albumin 2.8 GM/DL Alkaline Phosphatase 204 U/L Aspartate Amino Transf (AST/SGOT) 152 U/L Alanine Aminotransferase (ALT/SGPT) 171 U/L Total Bilirubin 0.7 MG/DL Objective Remarks GENERAL: AWAKE ALERT AND ORIENTED SKIN: Warm and dry. HEAD: Atraumatic. Normocephalic. EYES: Pupils equal and round. No scleral icterus. No injection or drainage. EOMI ENT: No nasal bleeding or discharge. Mucous membranes pink and moist.TONGUE MIDLINE NECK: Trachea midline. No JVD. SUPPLE CARDIOVASCULAR: Regular rate and rhythm. S1, S2, NO S3 OR S4 RESPIRATORY: No accessory muscle use. Clear to auscultation. Breath sounds equal bilaterally. GASTROINTESTINAL: Abdomen soft, non-tender, nondistended. Hepatic and splenic margins not palpable. MUSCULOSKELETAL: Extremities without clubbing, cyanosis, or edema. No obvious deformities. NEUROLOGICAL: Awake and alert. No obvious cranial nerve deficits. Motor grossly within normal limits. Five out of 5 muscle strength in the arms and legs. Normal speech. PSYCHIATRIC: INAppropriate mood and affect; insight and judgment ABnormal. Medications and IVs Current Medications Bethanechol Chloride (Urecholine) 25 mg Q8HR PO Last administered on 05:57; Start 04/02/17 at 14:45 Clonazepam (KlonoPIN) 0.5 mg Q8H PRN PO ANXIETY Last administered on 22:06; Start 04/02/17 at 14:45 Clopidogrel Bisulfate (Plavix) 75 mg DAILY PO Last administered on 04/04/17 09:10; Start 04/02/17 at 14:45 Gabapentin (Neurontin) 600 mg TID PO Last administered on 04/04/17 12:10; Start 04/02/17 at 18:00 Insulin Human NPH (NovoLIN N INJ) 25 units BID SQ Last administered on 09:18; Start 04/02/17 at 14:45 Metoprolol Tartrate (Lopressor) 25 mg BID PO Last administered on 04/04/17 09 :09; Start 04/02/17 at 14:45 Nicotine (Habitrol 21 Mg Patch.24 Hr) 1 patch DAILY T-DERMAL Last administered on 04/04/17 09:18; Start 04/02/17 at 14:45 Quetiapine Fumarate (SEROquel) 50 mg HS PO Last administered on 04/03/17 21: 36; Start 04/02/17 at 21:00 Lorazepam (Ativan) 1 mg Q6H PRN PO MODERATE TO SEVERE ANXIETY; Start 04/02/17 at 14:45; Stop 04/03/17 at 11:10; Status DC Lorazepam (Ativan Inj) 1 mg Q6H PRN IM MODERATE TO SEVERE ANXIETY; Start 04/02 at 14:45; Stop 04/03/17 at 11:10; Status DC Lorazepam (Ativan) 0.5 mg Q12H PRN PO MODERATE TO SEVERE ANXIETY Last administered on 04/02/17 15:24; Start 04/02/17 at 14:45; Stop 04/03/17 at 11 :10; Status DC Lorazepam (Ativan Inj) 0.5 mg Q12H PRN IM MODERATE TO SEVERE ANXIETY; Start at 14:45; Stop 04/03/17 at 11:10; Status DC Acetaminophen (Tylenol) 650 mg Q4H PRN PO Pain 1-5 or Temp >101F; Start at 14:45; Stop 04/03/17 at 11:28; Status DC Magnesium Hydroxide (Milk Of Magnesia Liq) 30 ml DAILY PRN PO CONSTIPATION; Start 04/02/17 at 14:45 Al Hydrox/Mg Hydrox/Simethicone (Mag-Al Plus Susp Liq) 30 ml Q6H PRN PO DYSPEPSIA; Start 04/02/17 at 14:45 Nicotine (Habitrol 21 Mg Patch.24 Hr) 1 patch DAILY T-DERMAL ; Start 04/02/17 at 14:45; Status UNV Dextrose (D50w (Vial) Inj) 50 ml UNSCH PRN IV PUSH HYPOGLYCEMIA-SEE COMMENTS; Start 04/02/17 at 17:15 Glucagon (Glucagon Inj) 1 mg UNSCH PRN OTHER HYPOGLYCEMIA-SEE COMMENTS; Start 04/02/17 at 17:15 Insulin Aspart (NovoLOG SUPPLEMENTAL SCALE) 1 ACHS SLIDING SCALE SQ Last administered on 04/04/17 12:07; Start 04/02/17 at 17:45 Acetaminophen (Tylenol) 650 mg Q4H PRN PO Pain 1-5 or Temp >101F; Start at 11:15 Nicotine (Habitrol 21 Mg Patch.24 Hr) 1 patch DAILY T-DERMAL ; Start 04/04/17 at 09:00; Status UNV Sertraline HCl (Zoloft) 50 mg DAILY PO Last administered on 04/04/17 09:09; Start 04/03/17 at 11:15 Lactulose (Lactulose Liq) 30 ml Q6H PRN PO Liver; Start 04/03/17 at 11:15 Pantoprazole Sodium (Protonix) 40 mg Q12HR PO Last administered on 04/04/17 09:10; Start 04/03/17 at 21:00 Sucralfate (Carafate Liq) 1 gm ACHS PO Last administered on 04/04/17 12:07; Start 04/03/17 at 12:00 Miscellaneous Information 1 HS T-DERMAL ; Start 04/03/17 at 21:00 A/P Assessment and Plan Chest pain with history of CAD Per patient, pain is similar as it was 1 month ago when he had a stent placed. EKG with normal sinus rhythm. Trops flat. May be s/t GI complaints. Cardiology consulted in the hospital. Status post catheterization which did not show occlusive disease. - Nitropatch as needed. - Follow with cardiology as an outpatient. - Continue Plavix. Discontinue aspirin per cardiology. Hyperglycemia/uncontrolled diabetes mellitus A1c 10.9%. - Sliding scale insulin. - Per patient, he cannot afford his home NovoLog 70/30 and has been attempting to control his blood sugars with only Humalog. He states he does not know what his blood sugars normally run because his meter just reads "high". Increased NPH to 20 units twice a day and adjust as needed. - inclusion special educator consulted while in the hospital. Hepatitis C cirrhosis/portal hypertension/varices/ Elevated LFTs/ gastroparesis Patient with transaminitis and elevated alkaline phosphatase. Failed interferon treatment in 2002. Gastroenterology consulted in the hospital. GES with delayed emptying. LFTs were increasing. 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 - trend LFTs. - follow up with GI as an outpt. - bethanechol. - ammonia level elevated. Start lactulose TID, titrate to 3-4 BMs daily. GERD/ Dysphagia Patient reports he had an EGD 1 month ago in [facility] that was significant for severe reflux disease. Endorses difficulty swallowing. - Continue PPI. Change to PO. - ADAT. SI/ Anxiety Stable. - management per psych. PPx: Heparin Orlando Rice DO Apr 04, 2017 14:41
[2017-04-04 18:00] VITALS: BP 139/76; PULSE 94; RESP 18; TEMP 98.1
[2017-04-04] MEDS: REMOVE OLD NICODERM (NICOTINE) PATCH T-DERMAL SCH (21:00)
[2017-04-04] MEDS: QUEtiapine FUMARATE 25 MG TAB PO SCH (21:21)
[2017-04-04] MEDS: ACETAMINOPHEN 325 MG TAB PO PRN (21:59)
[2017-04-04] MEDS: clonazePAM 0.5 MG TAB PO PRN (21:59)
[2017-04-05 06:09] VITALS: BP 117/63; PULSE 79; RESP 18; TEMP 97.5; O2SAT 98
[2017-04-05] MEDS: BETHANECHOL CHL 25 MG TAB PO SCH ×2 (06:22→12:52)
[2017-04-05] MEDS: INSULIN ASPART SUPPLEMENTAL SCALE SQ SCH ×2 (08:00→12:52)
[2017-04-05] MEDS: INSULIN HUMAN NPH 1,000 UNITS/10 ML VIAL SQ SCH (09:00)
[2017-04-05] MEDS: SERTRALINE HCL 50 MG TAB PO SCH (09:00)
[2017-04-05] MEDS: PANTOPRAZOLE SOD 40 MG DELAYED RELEASE TAB PO SCH (09:31)
[2017-04-05] MEDS: CLOPIDOGREL 75 MG TAB PO SCH (09:31)
[2017-04-05] MEDS: METOPROLOL TARTRATE 25 MG TAB PO SCH (09:31)
[2017-04-05] MEDS: SUCRALFATE 1 GM/10 ML CUP PO SCH ×2 (09:32→12:51)
[2017-04-05] MEDS: GABAPENTIN 300 MG CAP PO SCH ×2 (09:32→12:53)
[2017-04-05] MEDS: NICOTINE 21 MG/24 HR PATCH T-DERMAL SCH (09:32)
[2017-04-05] MEDS ORDERED: SUCR1S PO (13:52)
[2017-04-05] MEDS ORDERED: NOVONP2 SQ (13:52)
[2017-04-05] MEDS ORDERED: PANT40TA3 PO (13:52)
[2017-04-05] MEDS ORDERED: BETH25 PO (13:52)
[2017-04-05] MEDS ORDERED: ZOLO50TA PO (13:52)
[2017-04-05] MEDS ORDERED: PLAV75TA29 PO (13:52)
[2017-04-05] MEDS ORDERED: METO25TA3 PO (13:52)
[2017-04-05] MEDS ORDERED: GABA600T PO (13:52)
[2017-04-05] MEDS ORDERED: SERO50TA PO (13:52)
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
[2017-04-05] MEDS: ACETAMINOPHEN 325 MG TAB PO PRN ×2 (14:04→15:04)
--- NOTE | 2017-04-05 15:27 | HHI.PR ---
Subjective Remarks 46-year-old male with a past medical history significant for coronary artery disease stented approximately 1 month ago at [facility], hepatitis C with cirrhosis and uncontrolled diabetes mellitus presented to the emergency department with abdominal and chest pain. He states the pain is similar to the pain he had approximately 1 month ago when he was stented at [facility]. He was evaluated by cardiology who performed a catheterization which not show any obstructive disease. He was also evaluated by gastroenterology who had a gastric emptying study performed and the patient was found to have gastroparesis. He was started on a GI regimen. His blood sugar in the emergency department was 645. It was difficult controlling his blood sugar because the patient would decline doses of insulin throughout the hospitalization. His glucose readings were finally manageable. He was also evaluated by psychiatry and the patient was agreeable to go for voluntary psychiatric hospitalization. The patient was stable medically he was transferred to the psychiatric unit. Medicine is consulted to resume medical management. The patient is currently resting comfortably. He requests pain medication that has been discontinued. He says they are trying to improve his insulin regimen. No acute concerns at this time. 04-04 NO NEW COMPLAINTS DW RN AND PT AND PSYCHIATRY 04-05 NO NEW COMPLAINTS SEEN IN HIS ROOM DW RN INCREASE NPH TO 35UNITS SUBQ BID Objective Vitals Vital Signs Date Time Temp Pulse Resp B/P (MAP) Pulse Ox O2 Delivery O2 Flow Rate FiO2 04/05/17 06:09 97.5 79 18 117/63 (81) 98 04/04/17 18:00 98.1 94 18 139/76 (97) I/O 04/04/17 04/04/17 04/04/17 04/05/17 04/05/17 04/05/17 07:00 15:00 23:00 07:00 15:00 23:00 Intake Total 240 ml 240 ml 600 ml Balance 240 ml 240 ml 600 ml Intake Oral 240 ml 240 ml 600 ml Result Diagram: 04/04/17 0958 Other Results Laboratory Tests Test 04/03/17 07:40 04/04/17 09:58 Blood Urea Nitrogen 10 MG/DL 13 MG/DL Creatinine 0.65 MG/DL 0.73 MG/DL Random Glucose 240 MG/DL 257 MG/DL Calcium Level 8.6 MG/DL 8.8 MG/DL Sodium Level 139 MEQ/L 138 MEQ/L Potassium Level 3.8 MEQ/L 4.1 MEQ/L Chloride Level 105 MEQ/L 103 MEQ/L Carbon Dioxide Level 26.0 MEQ/L 27.4 MEQ/L Anion Gap 8 MEQ/L 8 MEQ/L Estimat Glomerular Filtration Rate 132 ML/MIN 116 ML/MIN Hemoglobin A1c 10.2 % Triglycerides Level 282 MG/DL Cholesterol Level 153 MG/DL LDL Cholesterol 49 MG/DL HDL Cholesterol 47.7 MG/DL Cholesterol/HDL Ratio 3.20 RATIO Total Protein 6.4 GM/DL Albumin 2.8 GM/DL Alkaline Phosphatase 204 U/L Aspartate Amino Transf (AST/SGOT) 152 U/L Alanine Aminotransferase (ALT/SGPT) 171 U/L Total Bilirubin 0.7 MG/DL Objective Remarks GENERAL: AWAKE ALERT AND ORIENTED SKIN: Warm and dry. HEAD: Atraumatic. Normocephalic. EYES: Pupils equal and round. No scleral icterus. No injection or drainage. EOMI ENT: No nasal bleeding or discharge. Mucous membranes pink and moist.TONGUE MIDLINE NECK: Trachea midline. No JVD. SUPPLE CARDIOVASCULAR: Regular rate and rhythm. S1, S2, NO S3 OR S4 RESPIRATORY: No accessory muscle use. Clear to auscultation. Breath sounds equal bilaterally. GASTROINTESTINAL: Abdomen soft, non-tender, nondistended. Hepatic and splenic margins not palpable. MUSCULOSKELETAL: Extremities without clubbing, cyanosis, or edema. No obvious deformities. NEUROLOGICAL: Awake and alert. No obvious cranial nerve deficits. Motor grossly within normal limits. Five out of 5 muscle strength in the arms and legs. Normal speech. PSYCHIATRIC: INAppropriate mood and affect; insight and judgment ABnormal. Procedures NONE Medications and IVs Current Medications Bethanechol Chloride (Urecholine) 25 mg Q8HR PO Last administered on 12:52; Start 04/02/17 at 14:45 Clonazepam (KlonoPIN) 0.5 mg Q8H PRN PO ANXIETY Last administered on 21:59; Start 04/02/17 at 14:45 Clopidogrel Bisulfate (Plavix) 75 mg DAILY PO Last administered on 04/05/17 09:31; Start 04/02/17 at 14:45 Gabapentin (Neurontin) 600 mg TID PO Last administered on 04/05/17 12:53; Start 04/02/17 at 18:00 Insulin Human NPH (NovoLIN N INJ) 25 units BID SQ Last administered on 09:18; Start 04/02/17 at 14:45; Stop 04/04/17 at 14:46; Status DC Metoprolol Tartrate (Lopressor) 25 mg BID PO Last administered on 04/05/17 09 :31; Start 04/02/17 at 14:45 Nicotine (Habitrol 21 Mg Patch.24 Hr) 1 patch DAILY T-DERMAL Last administered on 04/05/17 09:32; Start 04/02/17 at 14:45 Quetiapine Fumarate (SEROquel) 50 mg HS PO Last administered on 04/04/17 21: 21; Start 04/02/17 at 21:00 Lorazepam (Ativan) 1 mg Q6H PRN PO MODERATE TO SEVERE ANXIETY; Start 04/02/17 at 14:45; Stop 04/03/17 at 11:10; Status DC Lorazepam (Ativan Inj) 1 mg Q6H PRN IM MODERATE TO SEVERE ANXIETY; Start 04/02 at 14:45; Stop 04/03/17 at 11:10; Status DC Lorazepam (Ativan) 0.5 mg Q12H PRN PO MODERATE TO SEVERE ANXIETY Last administered on 04/02/17 15:24; Start 04/02/17 at 14:45; Stop 04/03/17 at 11 :10; Status DC Lorazepam (Ativan Inj) 0.5 mg Q12H PRN IM MODERATE TO SEVERE ANXIETY; Start at 14:45; Stop 04/03/17 at 11:10; Status DC Acetaminophen (Tylenol) 650 mg Q4H PRN PO Pain 1-5 or Temp >101F; Start at 14:45; Stop 04/03/17 at 11:28; Status DC Magnesium Hydroxide (Milk Of Magnesia Liq) 30 ml DAILY PRN PO CONSTIPATION; Start 04/02/17 at 14:45 Al Hydrox/Mg Hydrox/Simethicone (Mag-Al Plus Susp Liq) 30 ml Q6H PRN PO DYSPEPSIA; Start 04/02/17 at 14:45 Nicotine (Habitrol 21 Mg Patch.24 Hr) 1 patch DAILY T-DERMAL ; Start 04/02/17 at 14:45; Status UNV Dextrose (D50w (Vial) Inj) 50 ml UNSCH PRN IV PUSH HYPOGLYCEMIA-SEE COMMENTS; Start 04/02/17 at 17:15 Glucagon (Glucagon Inj) 1 mg UNSCH PRN OTHER HYPOGLYCEMIA-SEE COMMENTS; Start 04/02/17 at 17:15 Insulin Aspart (NovoLOG SUPPLEMENTAL SCALE) 1 ACHS SLIDING SCALE SQ Last administered on 04/05/17 12:52; Start 04/02/17 at 17:45 Acetaminophen (Tylenol) 650 mg Q4H PRN PO Pain 1-5 or Temp >101F Last administered on 04/05/17 14:04; Start 04/03/17 at 11:15 Nicotine (Habitrol 21 Mg Patch.24 Hr) 1 patch DAILY T-DERMAL ; Start 04/04/17 at 09:00; Status UNV Sertraline HCl (Zoloft) 50 mg DAILY PO Last administered on 04/05/17 09:00; Start 04/03/17 at 11:15 Lactulose (Lactulose Liq) 30 ml Q6H PRN PO Liver; Start 04/03/17 at 11:15 Pantoprazole Sodium (Protonix) 40 mg Q12HR PO Last administered on 04/05/17 09:31; Start 04/03/17 at 21:00 Sucralfate (Carafate Liq) 1 gm ACHS PO Last administered on 04/05/17 12:51; Start 04/03/17 at 12:00 Miscellaneous Information 1 HS T-DERMAL ; Start 04/03/17 at 21:00 Insulin Human NPH (NovoLIN N INJ) 30 units BID SQ Last administered on 09:00; Start 04/04/17 at 21:00 A/P Assessment and Plan Chest pain with history of CAD Per patient, pain is similar as it was 1 month ago when he had a stent placed. EKG with normal sinus rhythm. Trops flat. May be s/t GI complaints. Cardiology consulted in the hospital. Status post catheterization which did not show occlusive disease. - Nitropatch as needed. - Follow with cardiology as an outpatient. - Continue Plavix. Discontinue aspirin per cardiology. Hyperglycemia/uncontrolled diabetes mellitus A1c 10.9%. - Sliding scale insulin. - Per patient, he cannot afford his home NovoLog 70/30 and has been attempting to control his blood sugars with only Humalog. He states he does not know what his blood sugars normally run because his meter just reads "high". Increased NPH to 20 units twice a day and adjust as needed. - railway head tender consulted while in the hospital. ADJUST DM MEDS INCREASE HIS INSULIN NPH TO 35 UNITS SUBQ BID Hepatitis C cirrhosis/portal hypertension/varices/ Elevated LFTs/ gastroparesis Patient with transaminitis and elevated alkaline phosphatase. Failed interferon treatment in 2002. Gastroenterology consulted in the hospital. GES with delayed emptying. LFTs were increasing. 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 - trend LFTs. - follow up with GI as an outpt. - bethanechol. - ammonia level elevated. Start lactulose TID, titrate to 3-4 BMs daily. GERD/ Dysphagia Patient reports he had an EGD 1 month ago in [facility] that was significant for severe reflux disease. Endorses difficulty swallowing. - Continue PPI. Change to PO. - ADAT. SI/ Anxiety Stable. - management per psych. PPx: Orlando De Leon DO Apr 05, 2017 15:27
[2017-04-05] MEDS ORDERED: INSULIN HUMAN NPH 1,000 UNITS/10 ML VIAL SQ SCH (21:00)
== END 2017-04-05 16:35 | disposition home or self-care (01) | DRG 885 ==
LOC: H260 11:50
PROVIDERS: ADMIT Psychiatry & Neurology Psychiatry; ATTEND Psychiatry & Neurology Psychiatry
DX: F33.3 Major depressive disorder, recurrent, severe with psychotic symptoms (principal); K76.6 Portal hypertension; R45.851 Suicidal ideations; K74.60 Unspecified cirrhosis of liver; E11.65 Type 2 diabetes mellitus with hyperglycemia; K31.84 Gastroparesis; E11.43 Type 2 diabetes mellitus with diabetic autonomic (poly)neuropathy; G47.00 Insomnia, unspecified; I25.10 Atherosclerotic heart disease of native coronary artery without angina pectoris; K21.9 Gastro-esophageal reflux disease without esophagitis; E11.41 Type 2 diabetes mellitus with diabetic mononeuropathy; F17.210 Nicotine dependence, cigarettes, uncomplicated; F12.90 Cannabis use, unspecified, uncomplicated; B19.20 Unspecified viral hepatitis C without hepatic coma; R13.10 Dysphagia, unspecified; F41.9 Anxiety disorder, unspecified; Z79.4 Long term (current) use of insulin; Z62.810 Personal history of physical and sexual abuse in childhood; Z91.5 Personal history of self-harm; Z95.5 Presence of coronary angioplasty implant and graft
CPT/HCPCS: 80048; 80053; 80061; 82948; 83036; J1815

== ENCOUNTER 2017-04-24 20:16 | Emergency (ER) | payer SELFPAY ==
[~2017-04-24 20:16] MED LIST changes: -ASPI-516 CHEW; -CLOP75TA PO; -FAMO40TA PO; -GABA300C5 PO; +GABA600T PO; -HYDR-3516 PO; -NOVO7030P2 SQ; +PLAV75TA29 PO; +SERO50TA PO; +ZOLO50TA PO
[2017-04-24 20:19] VITALS: BP 137/97; PULSE 94; RESP 20; TEMP 97.9; O2SAT 100
[2017-04-24 21:12] LABS: AUTOMATED NEUTROPHIL # 3.9 TH/MM3 (1.8-7.7); BASOPHIL # 0.1 TH/MM3 (0-0.2); EOSINOPHIL # 0.1 TH/MM3 (0-0.4); EOSINOPHIL % 1.4 % (0.0-4.0); HEMO FLAGS DIFF FINAL; LYMPH % 39.5 % (9.0-44.0); LYMPHOCYTE # 3.1 TH/MM3 (1.0-4.8); MEAN CELL VOLUME 96.8 FL (80.0-100.0); MEAN CORPUSCULAR HEMOGLOBIN 33.6 PG (27.0-34.0); MEAN CORPUSCULAR HGB CONC 34.7 % (32.0-36.0); MONO % 8.6 % (0.0-8.0); NEUT % 49.5 % (16.0-70.0); PLATELET COUNT 124 TH/MM3 (150-450); RED BLOOD COUNT 5.06 MIL/MM3 (4.50-5.90); RED CELL DISTRIBUTION WIDTH 13.3 % (11.6-17.2); WHITE BLOOD COUNT 7.9 TH/MM3 (4.0-11.0)
[2017-04-24 21:49] LABS: ALKALINE PHOSPHATASE 402 U/L (45-117); ALT (GPT) 232 U/L (12-78); ANION GAP 10 MEQ/L (5-15); AST (GOT) 165 U/L (15-37); BICARBONATE 21.8 MEQ/L (21.0-32.0); BLOOD UREA NITROGEN 15 MG/DL (7-18); CHLORIDE 96 MEQ/L (98-107); GLOMERULAR FILTRATION RATE 64 ML/MIN (>89); SODIUM (NA) 128 MEQ/L (136-145); TOTAL BILIRUBIN ADULT 0.7 MG/DL (0.2-1.0)
[2017-04-24 21:53] LABS: POTASSIUM 4.6 MEQ/L (3.5-5.1)
--- NOTE | 2017-04-24 22:13 | PD ---
HPI Chief Complaint: Abdominal Pain Time Seen by Provider: 21:51 Travel History International Travel<30 days: No Contact w/Intl Traveler<30days: No Traveled to known affect area: No History of Present Illness HPI 46-year-old male presents to the emergency department complaining of diffuse abdominal pain. Patient states the lower abdomen and is sharp "like needles". He states the upper abdomen is tight and painful. Patient states he has had this pain for several months. He states it has worsened over the past week. Patient had multiple workups for this pain. He had abdomen and MRI done on March 30, 2017 which shows cirrhotic liver appearance, upper abdominal varices with spontaneous splenorenal shunt. He had a gastric emptying study which showed delayed gastric emptying. He also had abdomen and pelvis CT which showed cirrhosis and portal hypertension with numerous varices. The patient also reports he just recently had endoscopy which showed gastroparesis done by a clinical engineering manager. Patient states this is the same pain he has been having, but worse. The patient has medical history significant for coronary artery disease with cardiac stent, hepatitis C with cirrhosis, uncontrolled diabetes. He states that he cannot afford his NovoLog 70/30 and has been only using his Humalog. Patient denies any fevers. Denies any current chest pain. Reports nausea and decreased appetite. He states his stools are "white". No exacerbating or alleviating factors. Moderate severity. PFSH Past Medical History Hx Anticoagulant Therapy: Yes Anxiety: Yes Depression: Yes Cancer: No Cardiac Catheterization: Yes (stent) Cardiovascular Problems: Yes (Stint in heart about a month ago) Chest Pain: Yes COPD: Yes Diabetes: Yes Patient Takes Glucophage: No Diminished Hearing: No GERD: Yes Genitourinary: No Headaches: No Hypertension: Yes Immune Disorder: No Musculoskeletal: No Neurologic: Yes Psychiatric: Yes (drug alcohol rehab) Respiratory: Yes Migraines: Yes Seizures: No Tetanus Vaccination: > 5 Years Influenza Vaccination: No Past Surgical History Abdominal Surgery: Yes (GALLBLAGGER REMOVED (November 2016)) Cholecystectomy: Yes Other Surgery: Yes (ESOPHOGUS REPAIR) Social History Alcohol Use: No Tobacco Use: Yes (1/2 pack) Substance Use: Yes (cocaine, ecstacy, heroine over 2 years ago) Allergies-Medications (Allergen,Severity, Reaction): Coded Allergies: No Known Allergies (Unverified , 12/4/17) Reported Meds & Prescriptions Reported Meds & Active Scripts Active Sucralfate Liq (Sucralfate) 1 Gram/10 Ml Cristiana 1 Gm PO ACHS Zoloft (Sertraline HCl) 50 Mg Tab 50 Mg PO DAILY Metoprolol Tartrate 25 Mg Tab 25 Mg PO BID Novolin N Inj (Insulin Human NPH) 1,000 Unit/10 Ml Vial 30 Units SQ BID Gabapentin 600 Mg Tab 600 Mg PO TID Plavix (Clopidogrel Bisulfate) 75 Mg Tab 75 Mg PO DAILY Urecholine (Bethanechol Chloride) 25 Mg Tab 25 Mg PO Q8HR Insulin Syringe/0.5ML/30G 30G X 1/2" 0.5 ml (Insulin Syringe/Needle U-100) 1 Mis Mis Ea .ROUTE DIRECTED Novolin N Inj (Insulin Human NPH) 1,000 Unit/10 Ml Vial 25 Units SQ BID 30 Days Pantoprazole (Pantoprazole Sodium) 40 Mg Tab 40 Mg PO Q12HR Sucralfate Liq (Sucralfate) 1 Gram/10 Ml Cristiana 1 Gm PO ACHS 30 Days Neurontin (Gabapentin) 300 Mg Cap 600 Mg PO TID 30 Days Klonopin (Clonazepam) 0.5 Mg Tab 0.5 Mg PO Q8H PRN Urecholine (Bethanechol Chloride) 25 Mg Tab 25 Mg PO Q8HR Reported Novolog Inj (Insulin Aspart) 1,000 Unit/10 Ml Vial 0 SQ DIRECTED Sliding Scale as directed. Review of Systems Except as stated in HPI: all other systems reviewed are Neg Physical Exam Narrative GENERAL: Well-nourished, well-developed male patient, afebrile. SKIN: Focused skin assessment warm/dry. HEAD: Normocephalic. Atraumatic. EYES: No scleral icterus. No injection or drainage. NECK: Supple, trachea midline. No JVD or lymphadenopathy. CARDIOVASCULAR: Regular rate and rhythm without murmurs, gallops, or rubs. Bilateral radial and pedal pulses are 2+. RESPIRATORY: Breath sounds equal bilaterally. No accessory muscle use. Lungs sounds are clear to auscultation. GASTROINTESTINAL: Abdomen soft and nondistended. He has diffuse tenderness throughout the abdomen. MUSCULOSKELETAL: No cyanosis, or edema. BACK: Nontender without obvious deformity. No CVA tenderness. Data Data Last Documented VS Vital Signs Date Time Temp Pulse Resp B/P (MAP) Pulse Ox O2 Delivery O2 Flow Rate FiO2 04/24/17 22:03 20 04/24/17 20:19 97.9 94 137/97 (110) 100 Room Air Orders Orders Complete Blood Count With Diff (04/24/17 20:45) Comprehensive Metabolic Panel (04/24/17 20:45) Lipase (04/24/17 20:45) Beta Hydroxybutyrate (Acetone) (04/24/17 22:04) Sodium Chlor 0.9% 1000 Ml Inj (Ns 1000 M (04/24/17 22:15) Morphine Inj (Morphine Inj) (04/24/17 22:15) Ondansetron Inj (Zofran Inj) (04/24/17 22:15) Pantoprazole Inj (Protonix Inj) (04/24/17 22:15) Electrocardiogram (04/24/17 ) Insulin Human Regular Inj (Novolin R Inj (04/24/17 22:15) Labs Laboratory Tests Test 04/24/17 20:50 04/24/17 22:05 White Blood Count 7.9 TH/MM3 Red Blood Count 5.06 MIL/MM3 Hemoglobin 17.0 GM/DL Hematocrit 49.0 % Mean Corpuscular Volume 96.8 FL Mean Corpuscular Hemoglobin 33.6 PG Mean Corpuscular Hemoglobin Concent 34.7 % Red Cell Distribution Width 13.3 % Platelet Count 124 TH/MM3 Mean Platelet Volume 7.4 FL Neutrophils (%) (Auto) 49.5 % Lymphocytes (%) (Auto) 39.5 % Monocytes (%) (Auto) 8.6 % Eosinophils (%) (Auto) 1.4 % Basophils (%) (Auto) 1.0 % Neutrophils # (Auto) 3.9 TH/MM3 Lymphocytes # (Auto) 3.1 TH/MM3 Monocytes # (Auto) 0.7 TH/MM3 Eosinophils # (Auto) 0.1 TH/MM3 Basophils # (Auto) 0.1 TH/MM3 CBC Comment DIFF FINAL Differential Comment Blood Urea Nitrogen 15 MG/DL Creatinine 1.22 MG/DL Random Glucose 626 MG/DL Total Protein 8.0 GM/DL Albumin 3.6 GM/DL Calcium Level 9.0 MG/DL Alkaline Phosphatase 402 U/L Aspartate Amino Transf (AST/SGOT) 165 U/L Alanine Aminotransferase (ALT/SGPT) 232 U/L Total Bilirubin 0.7 MG/DL Sodium Level 128 MEQ/L Potassium Level 4.6 MEQ/L Chloride Level 96 MEQ/L Carbon Dioxide Level 21.8 MEQ/L Anion Gap 10 MEQ/L Estimat Glomerular Filtration Rate 64 ML/MIN Lipase 368 U/L [facility] Medical Decision Making Medical Screen Exam Complete: Yes Emergency Medical Condition: Yes Medical Record Reviewed: Yes Differential Diagnosis Chronic abdominal pain versus gastroparesis versus liver cirrhosis Narrative Course 46 year old male presents to the emergency department complaining of abdominal pain that has been chronic in nature for several months. He has had a significant workup including MRI, gastric emptying study, abdomen and pelvis CT , endoscopy. CBC shows no acute abnormality. CMP shows hyponatremia of 128, glucose 626, AST 165, ALT 232, alkaline phosphatase 402. Elevated liver enzymes are chronic for patient. Patient is given normal saline 1 L IV bolus, Zofran 4 mg IV, morphine 4 mg IV, Protonix 40 mg IV. Patient is given 10 units regular insulin subcutaneous. Beta hydroxybutyrate andfEKG are ordered and pending. EKG and Beta hydroxybutyrate are pending. Dr. Waggoner will review results, recheck blood glucose and disposition patient. Angela Livingston Apr 24, 2017 22:13
[2017-04-24] MEDS ORDERED: ONDANSETRON HCL 4 MG/2 ML VIAL IV PUSH ONE (22:15)
[2017-04-24] MEDS ORDERED: SODIUM CHLOR 0.9% 1000 ML INJ 1,000 ML IV ONE (22:15)
[2017-04-24] MEDS ORDERED: MORPHINE SULFATE 4 MG/ML INJ IV PUSH ONE (22:15)
[2017-04-24] MEDS ORDERED: PANTOPRAZOLE SODIUM 40 MG VIAL IV PUSH ONE (22:15)
[2017-04-24] MEDS ORDERED: INSULIN HUMAN REGULAR 1,000 UNITS/10 ML VIAL SQ ONE (22:15)
[2017-04-24] MEDS ORDERED: SODIUM CHLORID 0.9% 500 ML INJ 500 ML IV ONE (23:45)
[2017-04-25 00:08] VITALS: BP 139/93; PULSE 100; RESP 20; O2SAT 99
[2017-04-25] MEDS ORDERED: METOCLOPRAMIDE HCL 10 MG/2 ML VIAL IV PUSH ONE (00:45)
[2017-04-25] MEDS ORDERED: BETHANECHOL CHL 10 MG TAB PO ONE (01:00)
--- NOTE | 2017-04-25 01:00 | PD ---
Physical Exam Narrative General: The patient is a well-developed well-nourished male in no acute distress Head and Neck exam: Head is normocephalic atraumatic. Cardiovascular: Regular rate and rhythm without murmurs, gallops, or rubs. Lungs: Clear to auscultation bilaterally. No wheezes, rhonchi, or rales. Abdomen: Soft, with reported discomfort on palpation of the midepigastric area. No guarding, rebound, or rigidity. Normal bowel sounds are audible. No tenderness on palpation of McBurney's point. Extremities: No clubbing, cyanosis, or edema. Neurologic Exam: Grossly nonfocal. Data Data Last Documented VS Vital Signs Date Time Temp Pulse Resp B/P (MAP) Pulse Ox O2 Delivery O2 Flow Rate FiO2 04/25/17 01:33 95 20 135/84 (101) 99 04/25/17 00:08 Room Air 04/24/17 20:19 97.9 Orders Orders Complete Blood Count With Diff (04/24/17 20:45) Comprehensive Metabolic Panel (04/24/17 20:45) Lipase (04/24/17 20:45) Beta Hydroxybutyrate (Acetone) (04/24/17 22:04) Sodium Chlor 0.9% 1000 Ml Inj (Ns 1000 M (04/24/17 22:15) Morphine Inj (Morphine Inj) (04/24/17 22:15) Ondansetron Inj (Zofran Inj) (04/24/17 22:15) Pantoprazole Inj (Protonix Inj) (04/24/17 22:15) Electrocardiogram (04/24/17 ) Insulin Human Regular Inj (Novolin R Inj (04/24/17 22:15) Sodium Chlorid 0.9% 500 Ml Inj (Ns 500 M (04/24/17 23:45) Bedside Glucose WING.CSUGAR (04/24/17 23:43) Metoclopramide Inj (Reglan Inj) (04/25/17 00:45) Bethanechol (Urecholine) (04/25/17 01:00) Mandatory Outpatient Referral (04/25/17 00:52) Ed Discharge Order (04/25/17 01:00) Labs Laboratory Tests Test 04/24/17 20:50 04/24/17 22:05 White Blood Count 7.9 TH/MM3 Red Blood Count 5.06 MIL/MM3 Hemoglobin 17.0 GM/DL Hematocrit 49.0 % Mean Corpuscular Volume 96.8 FL Mean Corpuscular Hemoglobin 33.6 PG Mean Corpuscular Hemoglobin Concent 34.7 % Red Cell Distribution Width 13.3 % Platelet Count 124 TH/MM3 Mean Platelet Volume 7.4 FL Neutrophils (%) (Auto) 49.5 % Lymphocytes (%) (Auto) 39.5 % Monocytes (%) (Auto) 8.6 % Eosinophils (%) (Auto) 1.4 % Basophils (%) (Auto) 1.0 % Neutrophils # (Auto) 3.9 TH/MM3 Lymphocytes # (Auto) 3.1 TH/MM3 Monocytes # (Auto) 0.7 TH/MM3 Eosinophils # (Auto) 0.1 TH/MM3 Basophils # (Auto) 0.1 TH/MM3 CBC Comment DIFF FINAL Differential Comment Blood Urea Nitrogen 15 MG/DL Creatinine 1.22 MG/DL Random Glucose 626 MG/DL Total Protein 8.0 GM/DL Albumin 3.6 GM/DL Calcium Level 9.0 MG/DL Alkaline Phosphatase 402 U/L Aspartate Amino Transf (AST/SGOT) 165 U/L Alanine Aminotransferase (ALT/SGPT) 232 U/L Total Bilirubin 0.7 MG/DL Sodium Level 128 MEQ/L Potassium Level 4.6 MEQ/L Chloride Level 96 MEQ/L Carbon Dioxide Level 21.8 MEQ/L Anion Gap 10 MEQ/L Estimat Glomerular Filtration Rate 64 ML/MIN Lipase 368 U/L B-Hydroxybutyrate 0.15 MMOL/L MDM Medical Record Reviewed: Yes Supervised Visit with KASSI: Yes Narrative Course I, Dr. Waggoner, have reviewed the advance practice practitioner's documentation and am in agreement, met with the patient face to face, made the diagnosis, and the medical decision making was done by me. The patient was initially evaluated by Angela. Please see their complete history and physical. *My assessment and Findings: The patient presents with recurrent midepigastric abdominal pain and hyperglycemia.He reports that he's had a diminished appetite , therefore he is surprised that his blood sugar is high. The patient reports that he is supposed to be on 7030 insulin along with NovoLog sliding scale, however he has not been able to afford this 7030. The patient was just admitted to the hospital and discharged home on several new medications for a diagnosis of gastroparesis and gastritis, however he reports that he has not been able to get the medications filled due to cost. He denies having a primary care physician. He denies having insurance. During the course of the patients emergency department visit, the patients history, examination, and differential diagnosis were reviewed with the patient. The patient was placed on a radiographer cardiac catheterization with oximetry and frequent blood pressure monitoring. The patient had IV access obtained and blood work sent for analysis. The patient was initially provided 10 units of regular insulin subcutaneous due to poorly controlled glycemic control, Protonix 40 mg IV, Zofran 4 mg IV, morphine 4 mg IV, normal saline 1 L IV fluid bolus. The patients laboratory studies were reviewed and remarkable for a white count of 7.9, hemoglobin 17, platelets 124 with 8.6 monocytes. CMP is remarkable for sodium of 128 which is partly related to the patient's glucose be in 626, chloride 96, AST 165, ALT 232, alkaline phosphatase 402 which is at the patient' s baseline related to his history of cirrhosis. Lipase 368, beta hydroxybutyrate 0.15 Additional imaging at this time was not indicated the patient underwent extensive imaging and endoscopy recently. The patient's case was checked out to me at the conclusion of Angela shift. She requested that I review the beta hydroxybutyrate which was down to be within normal limits. The patient was reassessed. The patient's blood sugar was coming down. The patient reported continued nausea and midepigastric discomfort, the patient was given Reglan 5 mg IV, Bethanechol 10 mg by mouth 1 as this is what was recommended by GI that recently evaluated the patient. At discharge, the patient was instructed regarding the importance of following up with the [facility] as he reports that he has no primary care physician. He was also given a mandatory follow-up in the system with GI as he reports that he is uninsured. He was instructed regarding the importance of filling the prescriptions that were previously prescribed. The patient is resting comfortably and feels better, is alert and in no distress. The patients results and examination findings were discussed with the patient. The repeat examination is unremarkable and benign. The history, exam, diagnostic testing, and current condition do not suggest any significant pathology to warrant further testing, continued ED treatment, admission, or surgical evaluation at this point. The vital signs have been stable. The patient does not have uncontrollable pain, intractable vomiting, or other significant symptoms. The patient's condition is stable and appropriate for discharge. The patient will pursue further outpatient evaluation with a primary care physician or other designated or consulting physician as indicated in the discharge instructions. The patient expressed understanding and was agreeable with this plan. Diagnosis Primary Impression: Hyperglycemia Additional Impression: Gastroparesis Referrals: Kaushik Hill MD 1 week [facility] 1 day Patient Instructions: Acute Nausea and Vomiting (ED), Diabetic Hyperglycemia ( ED), Gastroparesis (ED), General Instructions Med/Other Pt SpecificInfo: No Change to Meds Disposition: 01 DISCHARGE HOME Condition: Stable Esther Waggoner MD Apr 25, 2017 01:00
[2017-04-25 01:33] VITALS: BP 135/84
--- NOTE | 2017-04-25 14:41 | EKG ---
Date Performed: 04/25/2017 Time Performed: 00:04:56 PTAGE: 46 years EKG: Sinus rhythm NORMAL ECG Compared to prior tracing no significant change PREVIOUS TRACING : 03/26/17 DOCTOR: Margaret Dobson Interpretating Date/Time 04/25/2017 14:36:16
== END 2017-04-25 01:48 | disposition home or self-care (01) ==
LOC: NEPC 20:16
DX: E11.43 Type 2 diabetes mellitus with diabetic autonomic (poly)neuropathy (principal); K31.84 Gastroparesis; E11.65 Type 2 diabetes mellitus with hyperglycemia; R10.84 Generalized abdominal pain; J44.9 Chronic obstructive pulmonary disease, unspecified; I10 Essential (primary) hypertension; K21.9 Gastro-esophageal reflux disease without esophagitis; F41.9 Anxiety disorder, unspecified; F32.9 Major depressive disorder, single episode, unspecified
CPT/HCPCS: 80053; 82010; 83690; 85025; 93005; 96361; 96372; 96374; 96375; 99284; C9113; J1815; J2270; J2405; J2765; J7030; J7040

== ENCOUNTER 2017-05-07 16:55 | Emergency (ER) | payer OTHER ==
[~2017-05-07] VITALS: Ht 188 cm; Wt 78.0 kg
[~2017-05-07 16:55] MED LIST changes: -LACT10SO PO; -NICO21DI25 T-DERMAL; -OXYC-392 PO; -SERO25TA PO; -SERO50TA PO
[2017-05-07 17:01] VITALS: BP 140/94; PULSE 100; RESP 18; TEMP 98.4; O2SAT 100
[2017-05-07] MEDS ORDERED: SODIUM CHLOR 0.9% 1000 ML INJ 1,000 ML IV SCH (19:16)
[2017-05-07 19:20] VITALS: BP 153/91; PULSE 100; RESP 18; O2SAT 100
--- NOTE | 2017-05-07 19:26 | PD ---
HPI Chief Complaint: Chest Pain Time Seen by Provider: 19:03 Travel History International Travel<30 days: No Contact w/Intl Traveler<30days: No Traveled to known affect area: No History of Present Illness HPI The patient is a 46-year-old male who presents emergency department for epigastric abdominal pain. The patient has multiple complaints upon arrival , states that he developed some epigastric abdominal pain that radiates to left and right upper quadrant of the abdomen. He does have a history of gastroparesis and chronic abdominal pain, however, states his pain is sharp and stabbing. The patient also states he felt like his entire body went numb, felt like he had tingling of both arms and legs as well as the lower lip. The patient does have a history of diabetes and diabetic neuropathy, states his blood sugar was 381 earlier today, he, himself with Humalog. The patient does not use the 70/30 insulin, states he cannot afford the insulin. He also states he does not follow up with a primary physician outside hospital. The patient states he lives in [place], [place], would like to see a clinic in that area that could help him with his medical problems. However, he does not want to go to her physician for a hospital in [place], [place], states he did not have a good experience there. The patient was recently hospitalized for chest pain and underwent cardiac catheterization which was essentially unremarkable except for mild CAD according to Dr. Waggoner's notes. He also recently underwent endoscopy earlier this year by gastroenterology for gastritis and esophagitis. The patient does have a history of cirrhosis and alcohol abuse, states he quit drinking several years ago. The patient denies any current chest pain or shortness of breath, but does state earlier that epigastric abdominal pain radiated up under the chest wall. Symptoms are moderate, there are no current alleviating or exacerbating factors. He is requesting pain medication. PFSH Past Medical History Hx Anticoagulant Therapy: Yes Anxiety: Yes Depression: Yes Cancer: No Cardiac Catheterization: Yes (stent) Cardiovascular Problems: Yes Chest Pain: Yes COPD: Yes Diabetes: Yes Diminished Hearing: No GERD: Yes Genitourinary: No Headaches: No Hypertension: Yes Immune Disorder: No Musculoskeletal: No Neurologic: Yes Psychiatric: Yes (drug alcohol rehab) Respiratory: Yes Migraines: Yes Seizures: No Past Surgical History Abdominal Surgery: Yes (GALLBLAGGER REMOVED (November 2016)) Cholecystectomy: Yes Other Surgery: Yes (ESOPHOGUS REPAIR) Social History Alcohol Use: No Tobacco Use: Yes (1/2 pack) Substance Use: Yes (cocaine, ecstacy, heroine over 2 years ago) Allergies-Medications (Allergen,Severity, Reaction): Coded Allergies: No Known Allergies (Unverified , 05/07/17) Reported Meds & Prescriptions Reported Meds & Active Scripts Active Sucralfate Liq (Sucralfate) 1 Gram/10 Ml Cristiana 1 Gm PO ACHS Zoloft (Sertraline HCl) 50 Mg Tab 50 Mg PO DAILY Metoprolol Tartrate 25 Mg Tab 25 Mg PO BID Novolin N Inj (Insulin Human NPH) 1,000 Unit/10 Ml Vial 30 Units SQ BID Gabapentin 600 Mg Tab 600 Mg PO TID Plavix (Clopidogrel Bisulfate) 75 Mg Tab 75 Mg PO DAILY Urecholine (Bethanechol Chloride) 25 Mg Tab 25 Mg PO Q8HR Insulin Syringe/0.5ML/30G 30G X 1/2" 0.5 ml (Insulin Syringe/Needle U-100) 1 Mis Mis Ea .ROUTE DIRECTED Novolin N Inj (Insulin Human NPH) 1,000 Unit/10 Ml Vial 25 Units SQ BID 30 Days Pantoprazole (Pantoprazole Sodium) 40 Mg Tab 40 Mg PO Q12HR Sucralfate Liq (Sucralfate) 1 Gram/10 Ml Cristiana 1 Gm PO ACHS 30 Days Neurontin (Gabapentin) 300 Mg Cap 600 Mg PO TID 30 Days Klonopin (Clonazepam) 0.5 Mg Tab 0.5 Mg PO Q8H PRN Urecholine (Bethanechol Chloride) 25 Mg Tab 25 Mg PO Q8HR Reported Novolog Inj (Insulin Aspart) 1,000 Unit/10 Ml Vial 0 SQ DIRECTED Sliding Scale as directed. Review of Systems Except as stated in HPI: all other systems reviewed are Neg General / Constitutional: Positive: Chills, No: Fever HENT: Positive: Headaches, Sore Throat, No: Lightheadedness Cardiovascular: No: Chest Pain or Discomfort Respiratory: No: Shortness of Breath Gastrointestinal: Positive: Nausea, Abdominal Pain, No: Vomiting Musculoskeletal: Positive: Weakness, Pain Neurologic: Positive: Paresthesia, Sensory Disturbance Physical Exam Narrative GENERAL: Awake, alert, nontoxic-appearing 46-year-old male who appears his stated age and is in no acute respiratory distress. SKIN: Focused skin assessment warm/dry. HEAD: Atraumatic. Normocephalic. EYES: Pupils equal and round. No scleral icterus. No injection or drainage. ENT: No nasal bleeding or discharge. Slightly dry mucous membranes. Oropharynx is not reveal any significant erythema or exudate. NECK: Trachea midline. No JVD. Shotty bilateral anterior cervical lymphadenopathy. CARDIOVASCULAR: Regular, tachycardic with a heart rate of 102. RESPIRATORY: No accessory muscle use. Clear to auscultation. Breath sounds equal bilaterally. GASTROINTESTINAL: Abdomen soft, tenderness epigastrium and upper quadrants bilateral, but no guarding or rigidity. Soft abdomen. MUSCULOSKELETAL: No obvious deformities. No clubbing. No cyanosis. No edema. NEUROLOGICAL: Awake and alert. No obvious cranial nerve deficits. Motor grossly within normal limits. Normal speech. PSYCHIATRIC: Appropriate mood and affect; insight and judgment normal. Data Data Last Documented VS Vital Signs Date Time Temp Pulse Resp B/P (MAP) Pulse Ox O2 Delivery O2 Flow Rate FiO2 05/07/17 20:32 18 05/07/17 20:04 93 149/90 (109) 99 Room Air 05/07/17 17:01 98.4 Orders Orders Complete Blood Count With Diff (05/07/17 19:16) Comprehensive Metabolic Panel (05/07/17 19:16) Lipase (05/07/17 19:16) Lactic Acid (05/07/17 19:16) Iv Access Insert/Monitor (05/07/17 19:16) Ecg Monitoring (05/07/17 19:16) Oximetry (05/07/17 19:16) Morphine Inj (Morphine Inj) (05/07/17 19:30) Ondansetron Inj (Zofran Inj) (05/07/17 19:30) Sodium Chlor 0.9% 1000 Ml Inj (Ns 1000 M (05/07/17 19:16) Sodium Chloride 0.9% Flush (Ns Flush) (05/07/17 19:30) Sodium Chlor 0.9% 1000 Ml Inj (Ns 1000 M (05/07/17 19:30) Resp Blood Gas Venous (05/07/17 ) Blood Gas Venous (Vbg) (05/07/17 19:20) Insulin Aspart Inj (Novolog Inj) (05/07/17 20:30) Morphine Inj (Morphine Inj) (05/07/17 20:30) Chest, Single Ap (05/07/17 ) Electrocardiogram (05/07/17 16:59) Labs Laboratory Tests Test 05/07/17 19:20 White Blood Count 9.0 TH/MM3 Red Blood Count 5.25 MIL/MM3 Hemoglobin 16.5 GM/DL Hematocrit 50.1 % Mean Corpuscular Volume 95.4 FL Mean Corpuscular Hemoglobin 31.4 PG Mean Corpuscular Hemoglobin Concent 32.9 % Red Cell Distribution Width 12.5 % Platelet Count 130 TH/MM3 Mean Platelet Volume 7.4 FL Neutrophils (%) (Auto) 44.5 % Lymphocytes (%) (Auto) 44.6 % Monocytes (%) (Auto) 8.6 % Eosinophils (%) (Auto) 1.1 % Basophils (%) (Auto) 1.2 % Neutrophils # (Auto) 4.0 TH/MM3 Lymphocytes # (Auto) 4.0 TH/MM3 Monocytes # (Auto) 0.8 TH/MM3 Eosinophils # (Auto) 0.1 TH/MM3 Basophils # (Auto) 0.1 TH/MM3 CBC Comment DIFF FINAL Differential Comment Blood Gas Puncture Site IV Blood Gas Patient Temperature 98.6 Venous Blood pH 7.60 Venous Blood Partial Pressure CO2 19 mmHg Venous Blood Partial Pressure O2 38 mmHg Venous Blood HCO3 19 mmol/L Venous Blood Oxygen Saturation 78 % Venous Blood Oxygen Content 17.8 Vol % Venous Blood Base Excess -2.5 mmol/L Oxygen Delivery Device ROOM AIR Blood Gas Inspired Oxygen 21 % Blood Urea Nitrogen 14 MG/DL Creatinine 0.74 MG/DL Random Glucose 343 MG/DL Total Protein 7.8 GM/DL Albumin 3.7 GM/DL Calcium Level 9.2 MG/DL Alkaline Phosphatase 252 U/L Aspartate Amino Transf (AST/SGOT) 156 U/L Alanine Aminotransferase (ALT/SGPT) 236 U/L Total Bilirubin 1.6 MG/DL Sodium Level 132 MEQ/L Potassium Level 3.3 MEQ/L Chloride Level 101 MEQ/L Carbon Dioxide Level 17.9 MEQ/L Anion Gap 13 MEQ/L Estimat Glomerular Filtration Rate 114 ML/MIN Lactic Acid Level 2.2 mmol/L Lipase 158 U/L MDM Medical Decision Making Medical Screen Exam Complete: Yes Emergency Medical Condition: Yes Medical Record Reviewed: Yes Interpretation(s) EKG reveals normal sinus rhythm with a rate in 95. Wavy baseline in V1 and V2. The patient's VBG reveals a pH is 7.602 with a PCO2 19.1 and bicarbonate 19.0. Laboratory Tests Test 05/07/17 19:20 White Blood Count 9.0 TH/MM3 Red Blood Count 5.25 MIL/MM3 Hemoglobin 16.5 GM/DL Hematocrit 50.1 % Mean Corpuscular Volume 95.4 FL Mean Corpuscular Hemoglobin 31.4 PG Mean Corpuscular Hemoglobin Concent 32.9 % Red Cell Distribution Width 12.5 % Platelet Count 130 TH/MM3 Mean Platelet Volume 7.4 FL Neutrophils (%) (Auto) 44.5 % Lymphocytes (%) (Auto) 44.6 % Monocytes (%) (Auto) 8.6 % Eosinophils (%) (Auto) 1.1 % Basophils (%) (Auto) 1.2 % Neutrophils # (Auto) 4.0 TH/MM3 Lymphocytes # (Auto) 4.0 TH/MM3 Monocytes # (Auto) 0.8 TH/MM3 Eosinophils # (Auto) 0.1 TH/MM3 Basophils # (Auto) 0.1 TH/MM3 CBC Comment DIFF FINAL Differential Comment Blood Gas Puncture Site IV Blood Gas Patient Temperature 98.6 Venous Blood pH 7.60 Venous Blood Partial Pressure CO2 19 mmHg Venous Blood Partial Pressure O2 38 mmHg Venous Blood HCO3 19 mmol/L Venous Blood Oxygen Saturation 78 % Venous Blood Oxygen Content 17.8 Vol % Venous Blood Base Excess -2.5 mmol/L Oxygen Delivery Device ROOM AIR Blood Gas Inspired Oxygen 21 % Blood Urea Nitrogen 14 MG/DL Creatinine 0.74 MG/DL Random Glucose 343 MG/DL Total Protein 7.8 GM/DL Albumin 3.7 GM/DL Calcium Level 9.2 MG/DL Alkaline Phosphatase 252 U/L Aspartate Amino Transf (AST/SGOT) 156 U/L Alanine Aminotransferase (ALT/SGPT) 236 U/L Total Bilirubin 1.6 MG/DL Sodium Level 132 MEQ/L Potassium Level 3.3 MEQ/L Chloride Level 101 MEQ/L Carbon Dioxide Level 17.9 MEQ/L Anion Gap 13 MEQ/L Estimat Glomerular Filtration Rate 114 ML/MIN Lactic Acid Level 2.2 mmol/L Lipase 158 U/L Differential Diagnosis Differential diagnosis includes hyperglycemia, hypocalcemia, hypercalcemia, hypokalemia, hyperkalemia, noncompliance, gastroparesis, malingering, esophagitis, pancreatitis, gastritis, peptic ulcer disease. Narrative Course IV was established, labs are drawn and sent, and the patient was placed on cardiac telemetry monitoring and continuous pulse oximetry monitoring. EKG was ordered and interpreted. I reviewed the patient's recent hospitalizations, most recent was for adjustment disorder with mixed anxiety and depressed mood. Previous ones were for chest pain where he underwent cardiac catheterization by Dr. Eleazar Waggoner on March 29, 2017 which revealed mild COPD but no significant stenosis. The patient was also seen by gastroenterology at that time, I reviewed Niyah Edwards notes in regards to the patient's chronic abdominal conditions. The patient states he is unable to see a primary physician outside the hospital, has not tried to follow-up with the outpatient clinic to [facility]. The patient's VBG reveals a pH is 7.602 with a PCO2 19.1 and bicarbonate of 19.0. No indication of DKA, however, it does appear the patient is hyperventilating, with a PCO2 19.1. Most likely the reason of the patient's numbness and tingling of the entire body and lower lip. The patient's blood glucose was elevated in the 300s, lactic acid is mildly elevated at 2.2. White count is unremarkable. The patient was administered several liters of IV fluids, insulin subcutaneously, is advised to follow-up with a primary physician on an outpatient basis. The patient wanted a definitive answer for his epigastric abdominal pain, I reviewed the EMR he is had an MRI of the abdomen and pelvis, gastric emptying study, cardiac catheterization, CT the abdomen and pelvis, all which reveals cirrhosis and varices with hepatorenal shunts. The patient is stable for outpatient follow-up, though he is advised to follow-up with gastroenterology as if his symptoms persist he may need repeat EGD. No indication for admission. He is advised to be compliant with his insulin regimen in regards to his diabetes as he did have an elevated hemoglobin A1c greater than 10, he may have neuropathy-type symptoms secondary to his diabetes and noncompliance. The patient's blood sugar came down to 270. The patient be discharged home on Reglan and [place], is advised to have a clear liquid diet and advance as tolerated. He is advised to follow-up with his medical artist in the clinic. Diagnosis Primary Impression: Abdominal pain Qualified Codes: R10.13 - Epigastric pain Additional Impression: Hyperglycemia Referrals: [facility] Patient Instructions: General Instructions Additional Instructions: Follow-up with your primary physician and follow-up with your medical artist. Try to be compliant with your diabetic medications. Diet as tolerated. Med/Other Pt SpecificInfo: Prescription(s) given Scripts Hydrocodone-Acetaminophen ([place]) 5 Mg-325 Mg Tab 1 TAB PO Q6H Y for PAIN, #12 TAB 0 Refills Prov: Jaylon Pope MD 05/07/17 Metoclopramide (Reglan) 10 Mg Tab 10 MG PO TIDAC for 10 Days, TAB 0 Refills Prov: Jaylon Pope MD 05/07/17 Disposition: 01 DISCHARGE HOME Condition: Stable Jaylon Pope MD May 07, 2017 19:26
[2017-05-07] MEDS ORDERED: ONDANSETRON HCL 4 MG/2 ML VIAL IVP ONE (19:30)
[2017-05-07] MEDS ORDERED: SODIUM CHLOR 0.9% 1000 ML INJ 1,000 ML IV ONE (19:30)
[2017-05-07] MEDS ORDERED: MORPHINE SULFATE 4 MG/ML INJ IV PUSH ONE ×2 (19:30→20:30)
[2017-05-07] MEDS ORDERED: SODIUM CHLORIDE 0.9% FLUSH 10 ML FLUSH IV FLUSH PRN (19:30)
[2017-05-07 19:35] LABS: BASOPHIL # 0.1 TH/MM3 (0-0.2); BASOPHIL % 1.2 % (0.0-2.0); EOSINOPHIL # 0.1 TH/MM3 (0-0.4); EOSINOPHIL % 1.1 % (0.0-4.0); HEMATOCRIT 50.1 % (39.0-51.0); HEMOGLOBIN 16.5 GM/DL (13.0-17.0); LYMPH % 44.6 % (9.0-44.0); MEAN CELL VOLUME 95.4 FL (80.0-100.0); MEAN CORPUSCULAR HEMOGLOBIN 31.4 PG (27.0-34.0); MEAN CORPUSCULAR HGB CONC 32.9 % (32.0-36.0); MEAN PLATELET VOLUME 7.4 FL (7.0-11.0); MONO % 8.6 % (0.0-8.0); MONOCYTE # 0.8 TH/MM3 (0-0.9); NEUT % 44.5 % (16.0-70.0); PLATELET COUNT 130 TH/MM3 (150-450); RED BLOOD COUNT 5.25 MIL/MM3 (4.50-5.90); RED CELL DISTRIBUTION WIDTH 12.5 % (11.6-17.2)
[2017-05-07 19:54] LABS: CHLORIDE 101 MEQ/L (98-107); SODIUM (NA) 132 MEQ/L (136-145)
[2017-05-07 19:57] LABS: CALCIUM 9.2 MG/DL (8.5-10.1)
[2017-05-07 19:58] LABS: ALBUMIN 3.7 GM/DL (3.4-5.0); BICARBONATE 17.9 MEQ/L (21.0-32.0); BLOOD UREA NITROGEN 14 MG/DL (7-18); GLUCOSE,RANDOM 343 MG/DL (74-106); LIPASE 158 U/L (73-393)
[2017-05-07 20:00] LABS: ALT (GPT) 236 U/L (12-78)
[2017-05-07 20:01] LABS: AST (GOT) 156 U/L (15-37); CREATININE 0.74 MG/DL (0.60-1.30); GLOMERULAR FILTRATION RATE 114 ML/MIN (>89)
[2017-05-07 20:02] LABS: TOTAL BILIRUBIN ADULT 1.6 MG/DL (0.2-1.0); TOTAL PROTEIN 7.8 GM/DL (6.4-8.2)
[2017-05-07 20:03] LABS: ALKALINE PHOSPHATASE 252 U/L (45-117)
[2017-05-07 20:04] VITALS: BP 149/90; PULSE 93; RESP 18; O2SAT 99
[2017-05-07] MEDS ORDERED: INSULIN ASPART 1,000 UNITS/10 ML VIAL SQ ONE (20:30)
--- NOTE | 2017-05-07 20:38 | RADRPT ---
EXAM DATE/TIME: 05/07/2017 20:24 [facility] COMPARISON: CHEST SINGLE AP, March 26, 2017, 20:50. INDICATIONS : Chest pain. MEDICAL HISTORY : Cardiovascular disease. SURGICAL HISTORY : Coronary artery stent. ENCOUNTER: Initial ACUITY: 1 day PAIN SCORE: 4/10 LOCATION: Bilateral chest FINDINGS: A single view of the chest demonstrates the lungs to be symmetrically aerated without evidence of mas s, infiltrate or effusion. The cardiomediastinal contours are unremarkable. Osseous structures are intact. CONCLUSION: Normal examination. Deshawn Oliveros MD on May 07, 2017 at 20:36 Board Certified Radiologist. This report was verified electronically.
[2017-05-07 21:00] VITALS: BP 141/88; PULSE 94; RESP 18; O2SAT 99
[2017-05-07] MEDS ORDERED: REGL10TA5 PO (21:39)
[2017-05-07] MEDS ORDERED: NORC5TAB PO (21:39)
[2017-05-07 22:11] VITALS: BP 134/87
--- NOTE | 2017-05-08 17:58 | EKG ---
Date Performed: 05/07/2017 Time Performed: 16:59:44 PTAGE: 46 years EKG: Sinus rhythm NORMAL ECG PREVIOUS TRACING : 04/25/2017 00.04 Since previous tracing, no significant change noted DOCTOR: Saskia Cruz Interpretating Date/Time 05/08/2017 17:56:37
== END 2017-05-07 22:35 | disposition home or self-care (01) ==
LOC: PHED 16:55
DX: R10.13 Epigastric pain (principal); E11.65 Type 2 diabetes mellitus with hyperglycemia; E11.43 Type 2 diabetes mellitus with diabetic autonomic (poly)neuropathy; K31.84 Gastroparesis; K21.9 Gastro-esophageal reflux disease without esophagitis; I10 Essential (primary) hypertension; J44.9 Chronic obstructive pulmonary disease, unspecified; F17.200 Nicotine dependence, unspecified, uncomplicated; Z79.4 Long term (current) use of insulin
CPT/HCPCS: 71010; 80053; 82805; 83605; 83690; 85025; 93005; 96361; 96372; 96374; 96375; 96376; 99285; J1815; J2270; J2405; J7030

== ENCOUNTER 2017-05-20 16:36 | Emergency (ER) | payer SELFPAY ==
[~2017-05-20] VITALS: Ht 185.4 cm; Wt 80.0 kg
[~2017-05-20 16:36] MED LIST changes: +NORC5TAB PO; +REGL10TA5 PO
[2017-05-20] MEDS ORDERED: IOHEXOL 350 MG/ML 10 ML VIAL (for RAD DIAG) IVCONTRAST ONE (16:37)
[2017-05-20 16:42] VITALS: BP 146/81; PULSE 116; RESP 16; TEMP 98.7; O2SAT 99
[2017-05-20] MEDS ORDERED: SODIUM CHLOR 0.9% 1000 ML INJ 1,000 ML IV SCH (16:59)
[2017-05-20] MEDS ORDERED: MORPHINE SULFATE 4 MG/ML INJ IV PUSH ONE (17:00)
[2017-05-20] MEDS ORDERED: ONDANSETRON HCL 4 MG/2 ML VIAL IVP ONE (17:00)
[2017-05-20] MEDS ORDERED: [UNRECOGNIZED DRUG - OTHER] (17:04)
--- NOTE | 2017-05-20 17:04 | PD ---
HPI Chief Complaint: GI Complaint Time Seen by Provider: 16:49 Travel History International Travel<30 days: No Contact w/Intl Traveler<30days: No Traveled to known affect area: No History of Present Illness HPI 46yo M with PMH of gastroparesis, chronic abdominal pain, cirrhosis, adjustment disorder presents to the ED with c/o generalized abdominal pain for months. Said he had vomiting and diarrhea for 2-3 days. Denies any fever, chest pain, sob, focal weakness or numbness. Pt said he has appointment with GI 06/12 but is in too much pain so he came here. Pt has been seen here for abdominal pain before. Last ED visit was 05/07/17. Had endoscopy this year that showed gastritis and esophagitis. PFSH Past Medical History Hx Anticoagulant Therapy: Yes Anxiety: Yes Depression: Yes Cancer: No Cardiac Catheterization: Yes (stent) Cardiovascular Problems: Yes Chest Pain: Yes COPD: Yes Diabetes: Yes Diminished Hearing: No GERD: Yes Genitourinary: No Headaches: No Hypertension: Yes Immune Disorder: No Musculoskeletal: No Neurologic: Yes Psychiatric: Yes (drug alcohol rehab) Respiratory: Yes Migraines: Yes Seizures: No Past Surgical History Abdominal Surgery: Yes (GALLBLAGGER REMOVED (November 2016)) Cholecystectomy: Yes Other Surgery: Yes (ESOPHOGUS REPAIR) Social History Alcohol Use: No Tobacco Use: Yes (1/2 pack) Substance Use: Yes (cocaine, ecstacy, heroine over 2 years ago) Allergies-Medications (Allergen,Severity, Reaction): Coded Allergies: No Known Allergies (Unverified , 05/07/17) Reported Meds & Prescriptions Reported Meds & Active Scripts Active Zoloft (Sertraline HCl) 50 Mg Tab 50 Mg PO DAILY Reported Famotidine 40 Mg Tab 40 Mg PO TID [fast acting insulin] Review of Systems Except as stated in HPI: all other systems reviewed are Neg Physical Exam Narrative GENERAL: 46yo M in mild distress. SKIN: Focused skin assessment warm/dry. HEAD: Atraumatic. Normocephalic. CARDIOVASCULAR: Regular rate and rhythm. No murmur appreciated. RESPIRATORY: No accessory muscle use. Clear to auscultation. Breath sounds equal bilaterally. GASTROINTESTINAL: Abdomen soft, mildly tender to palpation diffusely. No rebound tenderness or guarding. MUSCULOSKELETAL: No obvious deformities. No clubbing. No cyanosis. No edema. NEUROLOGICAL: Awake and alert. No obvious cranial nerve deficits. Motor grossly within normal limits. Normal speech. PSYCHIATRIC: Appropriate mood and affect; insight and judgment normal. Data Data Last Documented VS Vital Signs Date Time Temp Pulse Resp B/P (MAP) Pulse Ox O2 Delivery O2 Flow Rate FiO2 05/20/17 18:26 102 18 157/90 (112) 98 Room Air 05/20/17 16:42 98.7 Orders Orders Complete Blood Count With Diff (05/20/17 16:59) Comprehensive Metabolic Panel (05/20/17 16:59) Lipase (05/20/17 16:59) Urinalysis - C+S If Indicated (05/20/17 16:59) Ondansetron Inj (Zofran Inj) (05/20/17 17:00) Sodium Chlor 0.9% 1000 Ml Inj (Ns 1000 M (05/20/17 16:59) Morphine Inj (Morphine Inj) (05/20/17 17:15) Ct Abd/Pel W Iv Contrast(Rout) (05/20/17 ) Morphine Inj (Morphine Inj) (05/20/17 18:15) Iohexol 350 Inj (Omnipaque 350 Inj) (05/20/17 16:37) Sodium Chlorid 0.9% 500 Ml Inj (Ns 500 M (05/20/17 19:30) Labs Laboratory Tests Test 05/20/17 17:30 05/20/17 17:43 White Blood Count 8.4 TH/MM3 Red Blood Count 4.60 MIL/MM3 Hemoglobin 14.6 GM/DL Hematocrit 43.7 % Mean Corpuscular Volume 94.9 FL Mean Corpuscular Hemoglobin 31.8 PG Mean Corpuscular Hemoglobin Concent 33.5 % Red Cell Distribution Width 11.8 % Platelet Count 105 TH/MM3 Mean Platelet Volume 6.8 FL Neutrophils (%) (Auto) 51.6 % Lymphocytes (%) (Auto) 39.4 % Monocytes (%) (Auto) 7.3 % Eosinophils (%) (Auto) 1.4 % Basophils (%) (Auto) 0.3 % Neutrophils # (Auto) 4.4 TH/MM3 Lymphocytes # (Auto) 3.3 TH/MM3 Monocytes # (Auto) 0.6 TH/MM3 Eosinophils # (Auto) 0.1 TH/MM3 Basophils # (Auto) 0.0 TH/MM3 CBC Comment DIFF FINAL Differential Comment Blood Urea Nitrogen 17 MG/DL Creatinine 0.60 MG/DL Random Glucose 376 MG/DL Total Protein 6.8 GM/DL Albumin 3.2 GM/DL Calcium Level 8.7 MG/DL Alkaline Phosphatase 349 U/L Aspartate Amino Transf (AST/SGOT) 96 U/L Alanine Aminotransferase (ALT/SGPT) 147 U/L Total Bilirubin 0.7 MG/DL Sodium Level 133 MEQ/L Potassium Level 3.8 MEQ/L Chloride Level 102 MEQ/L Carbon Dioxide Level 20.8 MEQ/L Anion Gap 10 MEQ/L Estimat Glomerular Filtration Rate 145 ML/MIN Lipase 500 U/L Urine Collection Type CLEAN CATCH Urine Color YELLOW Urine Turbidity CLEAR Urine pH 6.5 Urine Specific [place] GREATER THAN 1.035 Urine Protein NEG mg/dL Urine Glucose (UA) 1000 OR GREATER mg/dL Urine Ketones TRACE mg/dL Urine Occult Blood TRACE Urine Nitrite NEG Urine Bilirubin NEG Urine Leukocyte Esterase NEG Urine RBC 0-3 /hpf Urine Squamous Epithelial Cells 0-5 /hpf Microscopic Urinalysis Comment CULT NOT INDICATED MDM Medical Decision Making Medical Screen Exam Complete: Yes Emergency Medical Condition: Yes Differential Diagnosis Gastroparesis vs. chronic pain vs. pancreatitis vs. gastritis Narrative Course 46yo M with chronic abdominal pain here with diffuse abdominal pain, vomiting and diarrhea. Labs reviewed, no leukocytosis. H/H normal. Thrombocytopenic but at baseline. Glucose elevated at 376. No increased anion gap. CO2 20.8. Pt is not in DKA. LFTs and alk phos elevated but at baseline. Lipase is mildly elevated at 500. UA negative for leukocyte. Pt is still in a lot of pain after morphine so will do CT a/p. Pt given NS IVF, morphine and zofran. CT a/p showed cirrhotic appearing liver and signs of portal venous hypertension. Pt given another dose of pain medication with improvement of pain. Pt has been observed in the ED with no episodes of vomiting. Pt is well appearing. Pt is to follow up with GI as outpatient. Feel that this pain is chronic. Return precautions given. Diagnosis Primary Impression: Chronic abdominal pain Patient Instructions: General Instructions Departure Forms: Tests/Procedures Additional Instructions: Please follow up with your professor of psychiatry as outpatient. Return to the ED if symptoms worsen. Med/Other Pt SpecificInfo: Prescription(s) given Scripts Acetaminophen (Tylenol) 325 Mg Tab 325 MG PO Q4H Y for PAIN SCALE 1 TO 4, #20 TAB 0 Refills Prov: Ruthie Phillips DO 05/20/17 Disposition: 01 DISCHARGE HOME Condition: Stable Ruthie Phillips DO May 20, 2017 17:03
[2017-05-20] MEDS ORDERED: MORPHINE SULFATE 2 MG/ML INJ IV PUSH ONE ×3 (17:15→18:15)
[2017-05-20 17:30] VITALS: BP 147/83; PULSE 102; RESP 17; O2SAT 98
[2017-05-20 17:34] LABS: AUTOMATED NEUTROPHIL # 4.4 TH/MM3 (1.8-7.7); BASOPHIL % 0.3 % (0.0-2.0); EOSINOPHIL # 0.1 TH/MM3 (0-0.4); EOSINOPHIL % 1.4 % (0.0-4.0); HEMATOCRIT 43.7 % (39.0-51.0); HEMOGLOBIN 14.6 GM/DL (13.0-17.0); LYMPH % 39.4 % (9.0-44.0); LYMPHOCYTE # 3.3 TH/MM3 (1.0-4.8); MEAN CELL VOLUME 94.9 FL (80.0-100.0); MEAN CORPUSCULAR HEMOGLOBIN 31.8 PG (27.0-34.0); MEAN CORPUSCULAR HGB CONC 33.5 % (32.0-36.0); MEAN PLATELET VOLUME 6.8 FL (7.0-11.0); MONO % 7.3 % (0.0-8.0); MONOCYTE # 0.6 TH/MM3 (0-0.9); NEUT % 51.6 % (16.0-70.0); PLATELET COUNT 105 TH/MM3 (150-450); RED CELL DISTRIBUTION WIDTH 11.8 % (11.6-17.2); WHITE BLOOD COUNT 8.4 TH/MM3 (4.0-11.0)
[2017-05-20 17:43] LABS: CHLORIDE 102 MEQ/L (98-107); SODIUM (NA) 133 MEQ/L (136-145)
[2017-05-20 17:46] LABS: CALCIUM 8.7 MG/DL (8.5-10.1)
[2017-05-20 17:47] LABS: ALBUMIN 3.2 GM/DL (3.4-5.0); BICARBONATE 20.8 MEQ/L (21.0-32.0); BLOOD UREA NITROGEN 17 MG/DL (7-18); GLUCOSE,RANDOM 376 MG/DL (74-106); LIPASE 500 U/L (73-393)
[2017-05-20 17:49] LABS: ALT (GPT) 147 U/L (12-78); AST (GOT) 96 U/L (15-37)
[2017-05-20 17:50] LABS: GLOMERULAR FILTRATION RATE 145 ML/MIN (>89)
[2017-05-20 17:51] LABS: TOTAL BILIRUBIN ADULT 0.7 MG/DL (0.2-1.0); TOTAL PROTEIN 6.8 GM/DL (6.4-8.2)
[2017-05-20 17:52] LABS: ALKALINE PHOSPHATASE 349 U/L (45-117)
[2017-05-20 18:04] LABS: BILIRUBIN, URINE NEG (NEG); BLOOD, URINE TRACE (NEG); GLUCOSE,URINE 1000 OR GREATER mg/dL (NEG); KETONE, URINE TRACE mg/dL (NEG); NITRITE,URINE NEG (NEG); PH, URINE 6.5 (5.0-8.5); URINE LEUKOCYTE ESTERASE NEG (NEG)
[2017-05-20 18:10] LABS: URINE COLOR YELLOW (YELLW/STRAW)
[2017-05-20 18:11] LABS: RBC, URINE 0-3 /hpf (0-3); SQUAMOUS EPITHELIAL CELL URINE 0-5 /hpf (0-5)
[2017-05-20 18:26] VITALS: BP 157/90; PULSE 102; RESP 18; O2SAT 98
[2017-05-20] MEDS ORDERED: FAMO40TA PO (18:28)
--- NOTE | 2017-05-20 19:08 | RADRPT ---
EXAM DATE/TIME: 05/20/2017 18:42 [facility] COMPARISON: MRI ABDOMEN W & W/O CONTRAST, March 30, 2017, 11:33. INDICATIONS : Generalized abdominal pain for months, nausea and vomiting for three days. IV CONTRAST: 96 cc Omnipaque 350 (iohexol) IV ORAL CONTRAST: No oral contrast ingested. RADIATION DOSE: 11.46 CTDIvol (mGy) MEDICAL HISTORY : Cirrhosis. Hepatitis C. Gastroesophageal reflux disease.hypertension, cardiovascular disease, COPD, d iabetes. SURGICAL HISTORY : Cholecystectomy. Coronary artery stent. ENCOUNTER: Initial ACUITY: 3 days PAIN SCALE: 5/10 LOCATION: diffuse abdomen. TECHNIQUE: Volumetric scanning of the abdomen and pelvis was performed. Using automated exposure control and ad justment of the mA and/or kV according to patient size, radiation dose was kept as low as reasonably achievable to obtain optimal diagnostic quality images. DICOM format image data is available electro nically for review and comparison. FINDINGS: CT Abdomen: The liver is fatty without focal lesions or technique. The spleen is enlarged measuring 1 3.6 cm in craniocaudal dimension without focal lesions for technique. Multiple varices are present at the level of the gastroesophageal junction. The, pancreas, kidneys, adrenals are unremarkable. There is no evidence for any appreciable pathological adenopathy, free fluid, or bowel obstruction. There are old healed rib fractures in the right lower chest. CT pelvis: There is no evidence for mass, abscess formation, or any significant adenopathy within the pelvis. CONCLUSION: Cirrhotic appearing liver and signs of portal venous hypertension. Gwendolyn Alford MD on May 20, 2017 at 19:02 Board Certified Radiologist. This report was verified electronically.
[2017-05-20] MEDS ORDERED: SODIUM CHLORID 0.9% 500 ML INJ 500 ML IV ONE (19:30)
[2017-05-20] MEDS ORDERED: TYLE325T PO (19:36)
[2017-05-20 20:11] VITALS: BP 162/94
== END 2017-05-20 20:13 | disposition home or self-care (01) ==
LOC: PHED 16:36
DX: R10.9 Unspecified abdominal pain (principal); G89.29 Other chronic pain; R11.2 Nausea with vomiting, unspecified; J44.9 Chronic obstructive pulmonary disease, unspecified; E11.43 Type 2 diabetes mellitus with diabetic autonomic (poly)neuropathy; I10 Essential (primary) hypertension; K74.60 Unspecified cirrhosis of liver; K31.84 Gastroparesis; Z79.01 Long term (current) use of anticoagulants; Z72.0 Tobacco use
CPT/HCPCS: 74177; 80053; 81001; 83690; 85025; 96361; 96374; 96375; 96376; 99285; J2270; J2405; J7030; J7040; Q9967

== ENCOUNTER 2017-06-07 14:45 | Inpatient (IN) | payer OTHER ==
[~2017-06-07] VITALS: Ht 185.4 cm; Wt 77.0 kg
[~2017-06-07 14:45] MED LIST changes: -BETH25 PO; -CLON.5 PO; +FAMO40TA PO; -GABA600T PO; -INSULIN SYRINGE1 M10; -METO25TA3 PO; -NEUR300C PO; -NORC5TAB PO; -NOVOLOGP2 SQ; -NOVONP2 SQ; -PANT40TA3 PO; -PLAV75TA29 PO; -REGL10TA5 PO; -SUCR1S PO; +TYLE325T PO; +[UNRECOGNIZED DRUG - OTHER]
[2017-06-07 14:55] VITALS: BP 144/97; PULSE 128; RESP 18; TEMP 98.8; O2SAT 98
[2017-06-07 15:25] LABS: AUTOMATED NEUTROPHIL # 4.3 TH/MM3 (1.8-7.7); BASOPHIL # 0.1 TH/MM3 (0-0.2); BASOPHIL % 0.7 % (0.0-2.0); EOSINOPHIL # 0.2 TH/MM3 (0-0.4); EOSINOPHIL % 2.3 % (0.0-4.0); HEMATOCRIT 46.3 % (39.0-51.0); HEMOGLOBIN 16.3 GM/DL (13.0-17.0); LYMPH % 32.5 % (9.0-44.0); LYMPHOCYTE # 2.5 TH/MM3 (1.0-4.8); MEAN CELL VOLUME 93.7 FL (80.0-100.0); MEAN CORPUSCULAR HGB CONC 35.2 % (32.0-36.0); MEAN PLATELET VOLUME 6.7 FL (7.0-11.0); MONO % 9.7 % (0.0-8.0); MONOCYTE # 0.8 TH/MM3 (0-0.9); NEUT % 54.8 % (16.0-70.0); PLATELET COUNT 115 TH/MM3 (150-450); RED BLOOD COUNT 4.93 MIL/MM3 (4.50-5.90); RED CELL DISTRIBUTION WIDTH 13.8 % (11.6-17.2); WHITE BLOOD COUNT 7.8 TH/MM3 (4.0-11.0)
[2017-06-07 15:57] LABS: ALBUMIN 3.5 GM/DL (3.4-5.0); ALT (GPT) 171 U/L (12-78); AST (GOT) 121 U/L (15-37); BICARBONATE 23.7 MEQ/L (21.0-32.0); BLOOD UREA NITROGEN 17 MG/DL (7-18); CHLORIDE 99 MEQ/L (98-107); CREATININE 0.78 MG/DL (0.60-1.30); GLOMERULAR FILTRATION RATE 107 ML/MIN (>89); SODIUM (NA) 132 MEQ/L (136-145)
[2017-06-07 15:58] LABS: ALKALINE PHOSPHATASE 477 U/L (45-117); TOTAL BILIRUBIN ADULT 0.9 MG/DL (0.2-1.0); TOTAL PROTEIN 7.8 GM/DL (6.4-8.2)
[2017-06-07 16:05] LABS: GLUCOSE,RANDOM 407 MG/DL (74-106)
[2017-06-07] MEDS ORDERED: INSULIN HUMAN REGULAR 1,000 UNITS/10 ML VIAL SQ ONE (17:30)
--- NOTE | 2017-06-07 18:14 | PD ---
HPI Chief Complaint: Psychiatric Symptoms Time Seen by Provider: 17:24 Travel History International Travel<30 days: No Contact w/Intl Traveler<30days: No Traveled to known affect area: No History of Present Illness HPI 46-year-old male with history of chronic abdominal pain, cirrhosis, hepatitis C presents to the emergency room for evaluation of suicidal ideation. Patient states he has placed under a Lugo act after the therapist at [facility] called 911. He reports suicidal ideation because of chronic abdominal pain. States he has tried multiple times to have it fixed but cannot afford outpatient follow-up, surgery, or any of the medications. He reports suicidal attempt about a week ago by injecting 50 units of insulin when his blood sugar was around 67. He denies any drug or alcohol use. States he has been sober 6 years this coming Monday. He denies hallucinations or delusions but states he has intruding thoughts. PFSH Past Medical History Hx Anticoagulant Therapy: Yes Anxiety: Yes Depression: Yes Cancer: No Cardiac Catheterization: Yes (stent) Cardiovascular Problems: Yes Chest Pain: Yes Cirrhosis: Yes COPD: Yes Diabetes: Yes Diminished Hearing: No GERD: Yes Genitourinary: No Headaches: No Hypertension: Yes Immune Disorder: No Musculoskeletal: No Neurologic: Yes Psychiatric: Yes (drug alcohol rehab) Respiratory: Yes Migraines: Yes Seizures: No Past Surgical History Abdominal Surgery: Yes (GALLBLADDER REMOVED (November 2016)) Cholecystectomy: Yes Other Surgery: Yes (ESOPHOGUS REPAIR) Social History Alcohol Use: No Tobacco Use: Yes (1/2 pack) Substance Use: Yes (cocaine, ecstacy, heroine (sober 6 Years)) Allergies-Medications (Allergen,Severity, Reaction): Coded Allergies: No Known Allergies (Unverified , 05/07/17) Reported Meds & Prescriptions Reported Meds & Active Scripts Active Tylenol (Acetaminophen) 325 Mg Tab 325 Mg PO Q4H PRN Zoloft (Sertraline HCl) 50 Mg Tab 50 Mg PO DAILY Reported Famotidine 40 Mg Tab 40 Mg PO TID [fast acting insulin] Review of Systems Except as stated in HPI: all other systems reviewed are Neg Physical Exam Narrative GENERAL: Well developed, well-nourished male in no acute distress. Afebrile. Ambulatory. SKIN: Focused skin assessment warm/dry. HEAD: Atraumatic. Normocephalic. EYES: Pupils equal and round. No scleral icterus. No injection or drainage. NECK: Trachea midline. No JVD. CARDIOVASCULAR: Regular rate and rhythm. No murmur appreciated. RESPIRATORY: No accessory muscle use. Clear to auscultation. Breath sounds equal bilaterally. PSYCHIATRIC: Appropriate mood and affect. No pressured speech. Data Data Last Documented VS Vital Signs Date Time Temp Pulse Resp B/P (MAP) Pulse Ox O2 Delivery O2 Flow Rate FiO2 06/07/17 14:55 98.8 128 18 144/97 (113) 98 Orders Orders Complete Blood Count With Diff (06/07/17 15:10) Comprehensive Metabolic Panel (06/07/17 15:10) Psych Screen (06/07/17 15:10) Drug Screen, Random Urine (06/07/17 15:10) Insulin Human Regular Inj (Novolin R Inj (06/07/17 17:30) Labs Laboratory Tests Test 06/07/17 15:09 06/07/17 15:15 Urine Opiates Screen NEG Urine Barbiturates Screen NEG Urine Amphetamines Screen NEG Urine Benzodiazepines Screen NEG Urine Cocaine Screen NEG Urine Cannabinoids Screen NEG White Blood Count 7.8 TH/MM3 Red Blood Count 4.93 MIL/MM3 Hemoglobin 16.3 GM/DL Hematocrit 46.3 % Mean Corpuscular Volume 93.7 FL Mean Corpuscular Hemoglobin 33.0 PG Mean Corpuscular Hemoglobin Concent 35.2 % Red Cell Distribution Width 13.8 % Platelet Count 115 TH/MM3 Mean Platelet Volume 6.7 FL Neutrophils (%) (Auto) 54.8 % Lymphocytes (%) (Auto) 32.5 % Monocytes (%) (Auto) 9.7 % Eosinophils (%) (Auto) 2.3 % Basophils (%) (Auto) 0.7 % Neutrophils # (Auto) 4.3 TH/MM3 Lymphocytes # (Auto) 2.5 TH/MM3 Monocytes # (Auto) 0.8 TH/MM3 Eosinophils # (Auto) 0.2 TH/MM3 Basophils # (Auto) 0.1 TH/MM3 CBC Comment DIFF FINAL Differential Comment Blood Urea Nitrogen 17 MG/DL Creatinine 0.78 MG/DL Random Glucose 407 MG/DL Total Protein 7.8 GM/DL Albumin 3.5 GM/DL Calcium Level 9.0 MG/DL Alkaline Phosphatase 477 U/L Aspartate Amino Transf (AST/SGOT) 121 U/L Alanine Aminotransferase (ALT/SGPT) 171 U/L Total Bilirubin 0.9 MG/DL Sodium Level 132 MEQ/L Potassium Level 4.0 MEQ/L Chloride Level 99 MEQ/L Carbon Dioxide Level 23.7 MEQ/L Anion Gap 9 MEQ/L Estimat Glomerular Filtration Rate 107 ML/MIN MDM Medical Decision Making Medical Screen Exam Complete: Yes Emergency Medical Condition: Yes Medical Record Reviewed: Yes Differential Diagnosis Adjustment disorder, major depressive disorder, suicidal ideation, chronic pain Narrative Course 46-year-old male with a history of chronic abdominal pain, cirrhosis, and hepatitis presents to the emergency room for evaluation of suicidal ideation. Patient supposedly talking to his therapist at [facility] when she called 911 to have him Parish acted. States he attempted suicide about a week ago by injecting 50 units of insulin when his blood sugar was 67. He is suicidal because of chronic abdominal pain that he can no longer stand. Physical exam as reassuring. Patient resting comfortably. Vital signs stable. CBC as unremarkable. He has a blood sugar of 407. Liver enzymes are markedly elevated but similar to previous in a patient with chronic liver failure. Patient given 15 units subcutaneous insulin. He is medically cleared for psychiatric evaluation. Condition: Stable Caitlin Rothman Jun 07, 2017 18:14
[2017-06-07] MEDS ORDERED: MORPHINE SULFATE 4 MG/ML INJ IM ONE (21:30)
[2017-06-07 22:00] VITALS: BP 139/93; PULSE 121; RESP 18; TEMP 97.9; TEMP 99.9; O2SAT 98
[2017-06-08] MEDS ORDERED: ASPI-516 CHEW (00:30)
[2017-06-08] MEDS ORDERED: NOVOINJ2 SQ (00:30)
[2017-06-08] MEDS ORDERED: NOVO7030P2 SQ (00:34)
[2017-06-08] MEDS ORDERED: VIST25CA PO (00:52)
[2017-06-08] MEDS ORDERED: ZOLO100T PO (00:52)
[2017-06-08] MEDS ORDERED: HALOPERIDOL 5 MG TAB PO ONE (02:00)
[2017-06-08 02:54] VITALS: BP 139/87; PULSE 106; RESP 17; TEMP 98.9; O2SAT 99
[2017-06-08 05:54] VITALS: RESP 18
[2017-06-08] MEDS ORDERED: INSULIN HUMAN REGULAR 1,000 UNITS/10 ML VIAL SQ ONE (08:15)
[2017-06-08 12:32] VITALS: BP 155/94; PULSE 84; RESP 18; O2SAT 97
[2017-06-08] MEDS ORDERED: MAGNESIUM HYDROXIDE SUSP 30 ML CUP PO PRN (17:00)
[2017-06-08] MEDS ORDERED: LORazepam 2 MG/ML VIAL IM PRN (17:00)
[2017-06-08] MEDS ORDERED: ACETAMINOPHEN 325 MG TAB PO PRN (17:00)
[2017-06-08] MEDS ORDERED: ALUMINUM/MAGNESIUM/SIMETH 30 ML CUP PO PRN (17:00)
--- NOTE | 2017-06-08 17:15 | HHI.HP ---
Provisional Diagnosis Admission Date [place] I. Adjustment disorder with depressed mood Certification of Person's Competence To Provide Express and Informed Consent I have personally examined Quan Johnson , a person being served at [facility] on, Jun 08, 2017 17:03. Express and informed consent means consent voluntarily given in writing, by a competent person, after sufficient explanation and disclosure of the subject matter involved to enable the person to make a knowing and willful decision without any element of force, fraud, deceit, duress, or other form of constraint or coercion. This person is 18 years of age or older, is not now known to be incompetent to consent to treatment with a guardian advocate, and does not have a health care surrogate or proxy currently making medical treatment decisions. I have found this person to be one of the following: [X] Competent to provide express and informed consent, as defined above, for voluntary admission to this facility and is competent to provide express and informed consent for treatment. He/she has the consistent capacity to make well reasoned, willful, and knowing decisions concerning his or her medical or mental health treatment. The person fully and consistently understands the purpose of the admission for examination/placement and is fully capable of personally exercising all rights assured [place] Incompetent to provide express and informed consent to voluntary admission, and this is incompetent to provide express and informed consent to treatment. The person must be transferred to involuntary status and a petition for a guardian advocate filed with the Circuit Court. [] Refusing to provide express and informed consent to voluntary admission but is competent to provide express and informed consent for treatment. The person must be discharged or transferred to involuntary status. Form shall be completed within 24 hours of a person's arrival at the receiving facility and filed in the clinical record of each person: 1. Admitted on a voluntary basis 2. Permitted to provide express and informed consent to his/her own treatment 3. Allowed to transfer from involuntary to voluntary status 4. Prior to permitting a person to consent to his or her own treatment after having been previously found incompetent to consent to treatment. History of Present Illness Capacity: Has Capacity HPI 46-year-old male diagnosed at [facility] and Parish acted there for "severe major depression". According to the Lugo act, the patient has attempted to overdose on insolent 3 times "recently". According to the Lugo act, his last suicide attempt, approximately one week ago, consisted of injecting himself with 180 units of insulin. Again according to the Lugo act, the patient drove his blood sugar down to 67. The patient remarked "I should have taken more. I can't live with the pain." Patient points to pain "all over" that began approximately 2 years ago and is of unknown origin. According to the patient, it is the pain that is causing him to want to kill himself. The patient has apparently been treated at [facility] and [facility] and provided with antidepressant medication. However he states he cannot afford his medicines and therefore has been noncompliant. When the patient attended [facility] today, his contact there, Parish Bass acted him because she felt he would do another suicide attempt. Apparently the patient was living in [place] and sent to [place] by bus, with a past from the [facility] system. He does have 2 sisters that live in this area, one of whom he has been living with and the other who works at this hospital. 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 He does report having a cirrhotic liver. He reports multiple symptoms of depressed mood, anhedonia, anxiety, insomnia, appetite disturbance, diminished energy, social withdrawal, problems with concentration, diminished self-esteem, and suicidal ideation continuously with plan and multiple attempts. Review of Systems Gastrointestinal: COMPLAINS OF: Abdominal pain Psychiatric: COMPLAINS OF: Anxiety, Mood changes, Depression, Suicidal Ideation Except as stated in HPI: all other systems reviewed are Neg Past Psych History Psychological trauma history Patient does not report a history of psychological trauma. Violence risk - others (6 mos) Minimal to moderate. Violence risk - self (6 mos) High Substance Abuse History Drugs/Alcohol past 12 months History of both alcohol and substance abuse but the patient has been "clean" for reportedly 6 years. Toxicology screen is negative. Past Family Social History Coded Allergies: No Known Allergies (Unverified , 05/07/17) Active Scripts Acetaminophen (Tylenol) 325 Mg Tab, 325 MG PO Q4H Y for PAIN SCALE 1 TO 4, #20 TAB 0 Refills Prov:Ruthie Phillips DO 05/20/17 Reported Medications Hydroxyzine Pamoate (Vistaril) 25 Mg Cap, 25 MG PO QID for Anxiety, CAP 0 Refills 06/08/17 Sertraline (Zoloft) 100 Mg Tab, 100 MG PO DAILY, #30 TAB 0 Refills 06/08/17 Insulin Human Isophane-Regular 70-30 Inj (Novolin 70-30 Inj) 1,000 Unit/10 Ml Vial, 1 UNITS SQ for Blood Sugar Management, ML 0 Refills 06/08/17 Aspirin (Aspirin) 81 Mg Chew, 81 MG CHEW DAILY, TAB 0 Refills 06/08/17 Famotidine (Famotidine) 40 Mg Tab, 40 MG PO TID, #60 TAB 0 Refills 05/20/17 [fast acting insulin] No Conflict Check 05/20/17 Discontinued Reported Medications Insulin Aspart Protam-Asp 70-30 Inj (Novolog Mix 70-30 FlexPen Inj) 300 Unit/3 Ml Pen, 1 UNITS SQ BIDAC for Blood Sugar Management, #1 PEN 0 Refills 06/08/17 Discontinued Scripts Sertraline (Zoloft) 50 Mg Tab, 50 MG PO DAILY for health, #30 TAB 0 Refills Prov:Deshawn Irwin MD 04/05/17 Current Medications Medications (Trade) Dose Ordered Sig/Shae Route Start Time Stop Time Status Last Admin (Ativan) 1 mg Q6H PRN PO 06/08/17 17:00 UNV (Ativan Inj) 1 mg Q6H PRN IM 06/08/17 17:00 UNV (Tylenol) 650 mg Q4H PRN PO 06/08/17 17:00 UNV (Milk Of Magnesia Liq) 30 ml DAILY PRN PO 06/08/17 17:00 UNV (Mag-Al Plus Susp Liq) 30 ml Q6H PRN PO 06/08/17 17:00 UNV (Aspirin Chew) 81 mg DAILY CHEW 06/09/17 09:00 UNV (Vistaril) 25 mg QID PO 06/08/17 18:00 UNV (Zoloft) 100 mg DAILY PO 06/09/17 09:00 UNV Non-Formulary Medication 40 mg TID PO 06/08/17 18:00 UNV Family Psych History Positive for mood and anxiety disorders. Social History Patient is unemployed. He does have family support. He is a recovering alcoholic and drug addict. He has multiple medical issues, including brittle diabetes. Patient's Strengths (min. 2) Verbal and has access to healthcare. Physical Exam GENERAL: SKIN: Warm and dry. HEAD: Normocephalic. EYES: No scleral icterus. No injection or drainage. NECK: Supple, trachea midline. No JVD or lymphadenopathy. CARDIOVASCULAR: Regular rate and rhythm without murmurs, gallops, or rubs. RESPIRATORY: Breath sounds equal bilaterally. No accessory muscle use. GASTROINTESTINAL: Abdomen soft, non-tender, nondistended. MUSCULOSKELETAL: No cyanosis, or edema. BACK: Nontender without obvious deformity. No CVA tenderness. Vital Signs Vital Signs Date Time Temp Pulse Resp B/P (MAP) Pulse Ox O2 Delivery O2 Flow Rate FiO2 06/08/17 12:32 84 18 155/94 (114) 97 Room Air 06/08/17 02:54 98.9 I/O 06/08/17 06/08/17 06/09/17 08:00 16:00 00:00 Intake Total 230 ml Balance 230 ml Mental Status Examination Appearance: Appropriate Consciousness: Alert Orientation: x4 Motor Activity: Normal gait Speech: Unremarkable Language: Adequate Fund of Knowledge: Adequate Attention and Concentration: Adequate Memory: Unremarkable Mood: Sad, Anxious Affect: Sad, Anxious Thought Process & Associations: Intact Thought Content: Appropriate Hallucination Type: None Delusion Type: None Suicidal Ideation: Yes Suicidal Plan: Yes Suicidal Intention: Yes Homicidal Ideation: No Homicidal Plan: No Homicidal Intention: No Insight: Adequate Judgment: Adequate Assessment & Plan Problem List: (1) Adjustment disorder with mixed anxiety and depressed mood ICD Codes: F43.23 - Adjustment disorder with mixed anxiety and depressed mood Assessment & Plan Estimated LOS: days. 46-year-old male with diabetes, self-reported chronic pain and currently at high risk for suicide. Patient has reportedly made several attempts in the last 1-2 weeks of overdosing on his insolent. He continues to be suicidal, is unable to contract for safety and feels he will kill himself because he cannot live with the pain. For this reason he is being admitted for further evaluation and treatment. This physician has ordered a CBC and comprehensive metabolic panel to determine if any infectious process or metabolic process might be causing or contributing to his depression and suicidality. Additionally, this physician has ordered a thyroid-stimulating hormone level, vitamin B 12 level and vitamin D level to determine if deficiencies in these areas might be causing or contributing to his depression. Because the patient is on multiple psychotropic and nonpsychotropic medicines, this physician has also ordered an EKG as his medicines may adversely affect the conduction system of his heart. A hospitalist consult has also been placed to assist with management of his diabetes, etc. This case was discussed with nurse Paco and service line wide area network systems administrator Alan Hunter. Case management will also be involved and if the patient is difficult to treat, he may be a candidate for half-way psychiatric care. Vinh Pablo MD Jun 08, 2017 17:15
[2017-06-08] MEDS ORDERED: DEXTROSE 50% IN WATER 50 ML VIAL(D50) IV PUSH PRN (17:30)
[2017-06-08] MEDS ORDERED: GLUCAGON 1 MG/ML VIAL OTHER PRN (17:30)
[2017-06-08] MEDS ORDERED: GLUCAGON 1 MG/ML VIAL IM PRN (17:30)
[2017-06-08 17:57] VITALS: BP 142/94; PULSE 100; RESP 18; TEMP 98.2; O2SAT 99
[2017-06-08] MEDS: FAMOTIDINE 20 MG TAB PO SCH (18:00)
[2017-06-08] MEDS: hydrOXYzine PAMOATE 25 MG CAP PO SCH ×2 (18:00→20:06)
[2017-06-08] MEDS: INSULIN NovoLIN REGULAR SUPPLEMENTAL SCALE SQ SCH (20:06)
[2017-06-09 04:53] VITALS: BP 162/93; PULSE 101; RESP 16; TEMP 97.8; O2SAT 98
[2017-06-09] MEDS: INSULIN NovoLIN REGULAR SUPPLEMENTAL SCALE SQ SCH ×4 (07:21→21:43)
[2017-06-09] MEDS: FAMOTIDINE 20 MG TAB PO SCH ×3 (08:13→16:42)
[2017-06-09] MEDS: ASPIRIN 81 MG CHEW TAB CHEW SCH (08:13)
[2017-06-09] MEDS: hydrOXYzine PAMOATE 25 MG CAP PO SCH ×4 (08:14→21:42)
[2017-06-09] MEDS ORDERED: SERTRALINE HCL 100 MG TAB PO SCH (09:00)
--- NOTE | 2017-06-09 11:14 | EKG ---
Date Performed: 06/09/2017 Time Performed: 08:45:35 PTAGE: 46 years EKG: SINUS TACHYCARDIA BORDERLINE RIGHT AXIS DEVIATION ABNORMAL RHYTHM ECG No significant change from prior electrocardiogram. PREVIOUS TRACING : 05/07/2017 16.59 DOCTOR: Maurice Hand Interpretating Date/Time 06/09/2017 11:13:12
--- NOTE | 2017-06-09 13:55 | HHI.PYPN ---
Subjective Chief Complaint: Depression Remarks Patient seen and examined with nurse. Chart reviewed. Case discussed with nursing staff. Case discussed in treatment team. I have reviewed Dr. Pablo's documentation as well as Dr. Young and Dr. Irwin's notes from his previous medical and psychiatric admissions last March. Case also discussed briefly with childcare aide Shelia from [facility]. On my exam today, patient presents as dysphoric, sarcastic and fault-finding. He believes that he should be admitted to the medical floor because of his reported issues with gastroparesis. He accuses the ED staff of "trickery" in psychiatrically admitting him, although I do note what appears to be a valid BA on his chart from outpatient provider. Patient was medically cleared in the ED. He admits to recent insulin overdoses but minimizes their significance, saying that he only made these overdoses because of his abdominal pain. He does not appear to be in a great deal of acute physical distress: he is not grimacing (in fact he smiles at times), nor does he exhibit guarding or non-verbal vocalizations related to pain. He denies SI/HI presently. He admits to 2 previous suicide attempts, both by insulin overdose. He denies a family history of suicide. He denies active MORENITA and says that he is 6 years sober. He does admit to depression and poor sleep. There is no evidence of impairment in reality construction or psychosis. Some cluster B personality traits are noted. He initially requests to be discharged so that he can go to another hospital's ED and get medically hospitalized, although he does ultimately agree to remain for observation. He says that he is need of a special diet, and I have consulted the dietitian. Besides the abdominal pain, he has no acute physical complaints. Review of Systems ROS Limitations: Uncooperative Except as stated in HPI: all other systems reviewed are Neg Mental Status Examination Appearance: Appropriate Consciousness: Alert Orientation: x4 Motor Activity: Other (No motor abnormalities noted.) Speech: Unremarkable Language: Adequate Fund of Knowledge: Adequate Attention and Concentration: Adequate Memory: Unremarkable (grossly intact on clinical exam.) Mood: Other (dysphoric) Affect: Other (Fairly full and reactive) Thought Process & Associations: Intact, Logical, Linear Thought Content: Appropriate Hallucination Type: None Delusion Type: None Suicidal Ideation: No Suicidal Plan: No Suicidal Intention: No Homicidal Ideation: No Homicidal Plan: No Homicidal Intention: No Insight: Fair Judgment: Impulsive Results Labs Item Value Date Time White Blood Count 6.6 TH/MM3 06/09/17 1401 Hemoglobin 16.6 GM/DL 06/09/17 1401 Platelet Count 116 TH/MM3 L 06/09/17 1401 Sodium Level 132 MEQ/L L 06/07/17 1515 Potassium Level 4.0 MEQ/L 06/07/17 1515 Chloride Level 99 MEQ/L 06/07/17 1515 Carbon Dioxide Level 23.7 MEQ/L 06/07/17 1515 Anion Gap 9 MEQ/L 06/07/17 1515 Blood Urea Nitrogen 17 MG/DL 06/07/17 1515 Creatinine 0.78 MG/DL 06/07/17 1515 Estimat Glomerular Filtration Rate 107 ML/MIN 06/07/17 1515 Random Glucose 407 MG/DL *H 06/07/17 1515 Aspartate Amino Transf (AST/SGOT) 121 U/L H 06/07/17 1515 Alanine Aminotransferase (ALT/SGPT) 171 U/L H 06/07/17 1515 Alkaline Phosphatase 477 U/L H 06/07/17 1515 Urine Opiates Screen NEG 06/07/17 1509 Urine Barbiturates Screen NEG 06/07/17 1509 Urine Amphetamines Screen NEG 06/07/17 1509 Urine Benzodiazepines Screen NEG 06/07/17 1509 Urine Cocaine Screen NEG 06/07/17 1509 Urine Cannabinoids Screen NEG 06/07/17 1509 Ethyl Alcohol Level LESS THAN 3 MG/DL 06/09/17 1401 Labs reviewed. Thrombocytopenia and transaminitis are chronic. Vitals/IOs Vital Signs Date Time Temp Pulse Resp B/P (MAP) Pulse Ox O2 Delivery O2 Flow Rate FiO2 06/09/17 04:53 97.8 101 16 162/93 (116) 98 06/08/17 12:32 Room Air Intake and Output 06/09/17 06/09/17 06/10/17 08:00 16:00 00:00 Intake Total 240 ml Balance 240 ml Assessment & Plan Problem List: (1) Adjustment disorder with mixed anxiety and depressed mood ICD Codes: F43.23 - Adjustment disorder with mixed anxiety and depressed mood Assessment & Plan Given that the patient already has GI complaints, I think that Zoloft is not an ideal agent for patient's dysphoria given the high incidence of GI side effects with this agent. I recommend Remeron SolTab 15mg qHS, and I have discussed the R/B/A of this agent with patient, and he is agreeable to a trial of this agent. This agent may help to lessen GI distress and also may help with sleep. Defer management of patient's medical complaints to the hospitalist, whom Dr. Pablo has consulted. I have consulted the dietitian to ensure the patient receives the appropriate diet. Although the patient is presently denying suicidal ideation, I do believe some inpatient observation is warranted given the circumstances of his presentation here, and happily the patient is agreeable to remaining on the unit voluntarily for this purpose. Continue other care as ordered. Justification for Cont. Inpt. Med changes. Monitoring for impairments in safety. Discharge Planning Pending outcome of observation. Request HC Surrog/Guard Advoc?: No Khai Myrick MD Jun 09, 2017 13:54
[2017-06-09 14:19] LABS: AUTOMATED NEUTROPHIL # 2.9 TH/MM3 (1.8-7.7); BASOPHIL % 0.6 % (0.0-2.0); EOSINOPHIL # 0.2 TH/MM3 (0-0.4); HEMATOCRIT 48.2 % (39.0-51.0); HEMOGLOBIN 16.6 GM/DL (13.0-17.0); LYMPHOCYTE # 2.9 TH/MM3 (1.0-4.8); MEAN CELL VOLUME 94.3 FL (80.0-100.0); MEAN CORPUSCULAR HEMOGLOBIN 32.5 PG (27.0-34.0); MEAN CORPUSCULAR HGB CONC 34.5 % (32.0-36.0); MEAN PLATELET VOLUME 6.9 FL (7.0-11.0); MONO % 9.2 % (0.0-8.0); MONOCYTE # 0.6 TH/MM3 (0-0.9); NEUT % 43.2 % (16.0-70.0); PLATELET COUNT 116 TH/MM3 (150-450); RED BLOOD COUNT 5.12 MIL/MM3 (4.50-5.90); RED CELL DISTRIBUTION WIDTH 13.7 % (11.6-17.2); WHITE BLOOD COUNT 6.6 TH/MM3 (4.0-11.0)
[2017-06-09 14:42] LABS: ALBUMIN 3.4 GM/DL (3.4-5.0); ALT (GPT) 216 U/L (12-78); AST (GOT) 212 U/L (15-37); BICARBONATE 25.7 MEQ/L (21.0-32.0); BLOOD UREA NITROGEN 16 MG/DL (7-18); CHLORIDE 103 MEQ/L (98-107); CHOLESTEROL 177 MG/DL (120-200); CREATININE 0.76 MG/DL (0.60-1.30); GLOMERULAR FILTRATION RATE 110 ML/MIN (>89); GLUCOSE,RANDOM 299 MG/DL (74-106); SODIUM (NA) 138 MEQ/L (136-145)
--- NOTE | 2017-06-09 14:46 | PD.TTN ---
Patient Problems 1. Discharge planning 2. Medication compliance 3. Knowledge deficit 4. Lack of coping skills Progress Toward Goals Provider Present: Dr. Barbie Myrick Provider Input: Pt is new to the unit and will be evaluated along with medication regiment. Psychiatric Counselors Present: PAWEL Chahal Psych Therapist Input: Pt will be evaluated utilizing a biopsychosocial assessment. Group Spec/RT/OT/FLORES Present: NOE Valles Group Spec/RT/OT/FLORES Input: Pt is a new admission and will be evaluated. Discharge Plan Discharge plan will be formulated as pt treatment continues on unit. Documentation Scribe: PAWEL Chahal Jonathan LMHC Jun 09, 2017 14:46
[2017-06-09 15:08] LABS: ALKALINE PHOSPHATASE 224 U/L (45-117); CHOLESTEROL/ HDL RATIO 3.06 RATIO; HDL CHOLESTEROL 57.7 MG/DL (40.0-60.0); LDL CHOLESTEROL 61 MG/DL (0-99); TOTAL BILIRUBIN ADULT 1.1 MG/DL (0.2-1.0); TOTAL PROTEIN 7.4 GM/DL (6.4-8.2); TRIGLYCERIDES 290 MG/DL (42-150)
[2017-06-09] MEDS: NICOTINE 21 MG/24 HR PATCH T-DERMAL SCH (15:12)
[2017-06-09] MEDS: INSULIN HUMAN NPH 1,000 UNITS/10 ML VIAL SQ SCH (16:42)
[2017-06-09] MEDS: INSULIN HUMAN NPH/R 70/30 1,000 UNITS/10 ML VIAL SQ SCH (16:42)
[2017-06-09 17:57] LABS: HEMOGLOBIN A1C 11.3 % (4.3-6.0)
[2017-06-09 18:19] VITALS: BP 141/88; PULSE 111; RESP 19; TEMP 97.4; O2SAT 99
[2017-06-09] MEDS ORDERED: traMADol HCL 50 MG TAB PO ONE (19:45)
[2017-06-09] MEDS: MIRTAZAPINE ODT 15 MG TAB PO SCH (22:32)
[2017-06-09] MEDS: LORazepam 1 MG TAB PO PRN (22:32)
[2017-06-10 05:57] VITALS: BP 114/75; PULSE 94; RESP 16; TEMP 97.6; O2SAT 97
[2017-06-10] MEDS: INSULIN HUMAN NPH 1,000 UNITS/10 ML VIAL SQ SCH ×3 (08:00→17:00)
[2017-06-10] MEDS: INSULIN HUMAN NPH/R 70/30 1,000 UNITS/10 ML VIAL SQ SCH ×2 (08:00→17:00)
[2017-06-10] MEDS: INSULIN NovoLIN REGULAR SUPPLEMENTAL SCALE SQ SCH ×4 (08:00→21:06)
[2017-06-10] MEDS: REMOVE OLD PATCH T-DERMAL SCH (09:00)
[2017-06-10] MEDS: FAMOTIDINE 20 MG TAB PO SCH ×3 (09:17→18:22)
[2017-06-10] MEDS: NICOTINE 21 MG/24 HR PATCH T-DERMAL SCH (09:17)
[2017-06-10] MEDS: ASPIRIN 81 MG CHEW TAB CHEW SCH (09:17)
[2017-06-10] MEDS: hydrOXYzine PAMOATE 25 MG CAP PO SCH ×4 (09:17→21:06)
--- NOTE | 2017-06-10 11:10 | HHI.PYPN ---
Subjective Chief Complaint: Depression Remarks Patient was seen and case discussed with nursing. Patient is irritable and remains perseverative on his pain. He becomes angry about the distinction of chronic pain versus acute pain and says that his abdominal pain began 2 weeks ago. As noted yesterday, there is no grimacing or objective signs of pain. Describes his mood is "fine." Sleeping well. Mental Status Examination Appearance: Appropriate Consciousness: Alert Orientation: x4 Motor Activity: Other (No motor abnormalities noted.) Speech: Unremarkable Language: Adequate Fund of Knowledge: Adequate Attention and Concentration: Adequate Memory: Unremarkable (grossly intact on clinical exam.) Mood: Other (dysphoric) Affect: Other (Fairly full and reactive) Thought Process & Associations: Intact, Logical, Linear Thought Content: Appropriate Hallucination Type: None Delusion Type: None Suicidal Ideation: No Suicidal Plan: No Suicidal Intention: No Homicidal Ideation: No Homicidal Plan: No Homicidal Intention: No Insight: Fair Judgment: Impulsive Results Labs Test 06/09/17 14:01 White Blood Count 6.6 TH/MM3 Red Blood Count 5.12 MIL/MM3 Hemoglobin 16.6 GM/DL Hematocrit 48.2 % Mean Corpuscular Volume 94.3 FL Mean Corpuscular Hemoglobin 32.5 PG Mean Corpuscular Hemoglobin Concent 34.5 % Red Cell Distribution Width 13.7 % Platelet Count 116 TH/MM3 Mean Platelet Volume 6.9 FL Neutrophils (%) (Auto) 43.2 % Lymphocytes (%) (Auto) 44.0 % Monocytes (%) (Auto) 9.2 % Eosinophils (%) (Auto) 3.0 % Basophils (%) (Auto) 0.6 % Neutrophils # (Auto) 2.9 TH/MM3 Lymphocytes # (Auto) 2.9 TH/MM3 Monocytes # (Auto) 0.6 TH/MM3 Eosinophils # (Auto) 0.2 TH/MM3 Basophils # (Auto) 0.0 TH/MM3 CBC Comment DIFF FINAL Differential Comment Blood Urea Nitrogen 16 MG/DL Creatinine 0.76 MG/DL Random Glucose 299 MG/DL Total Protein 7.4 GM/DL Albumin 3.4 GM/DL Calcium Level 9.0 MG/DL Alkaline Phosphatase 224 U/L Aspartate Amino Transf (AST/SGOT) 212 U/L Alanine Aminotransferase (ALT/SGPT) 216 U/L Total Bilirubin 1.1 MG/DL Sodium Level 138 MEQ/L Potassium Level 3.8 MEQ/L Chloride Level 103 MEQ/L Carbon Dioxide Level 25.7 MEQ/L Anion Gap 9 MEQ/L Estimat Glomerular Filtration Rate 110 ML/MIN Hemoglobin A1c 11.3 % Triglycerides Level 290 MG/DL Cholesterol Level 177 MG/DL LDL Cholesterol 61 MG/DL HDL Cholesterol 57.7 MG/DL Cholesterol/HDL Ratio 3.06 RATIO Vitamin B12 Level 1205 PG/ML 25-Hydroxy Vitamin D Total 15.3 ng/ML Thyroid Stimulating Hormone 3rd Gen 1.210 uIU/ML Ethyl Alcohol Level LESS THAN 3 MG/DL Vitals/IOs Vital Signs Date Time Temp Pulse Resp B/P (MAP) Pulse Ox O2 Delivery O2 Flow Rate FiO2 06/10/17 05:57 97.6 94 16 114/75 (88) 97 06/08/17 12:32 Room Air Assessment & Plan Problem List: (1) Adjustment disorder with mixed anxiety and depressed mood ICD Codes: F43.23 - Adjustment disorder with mixed anxiety and depressed mood Assessment & Plan Continue current treatment plan Justification for Cont. Inpt. Patient would decompensate in a less restrictive setting Request HC Surrog/Guard Advoc?: No Manuel Burns DO Jun 10, 2017 11:10
--- NOTE | 2017-06-10 16:43 | PD.CONS ---
HPI [facility] Consult Requested By psychiatry Reason for Consult diabetes management Primary Care Physician Unknown Diagnoses: History of Present Illness 46 years old male with chronic abdominal pain cirrhosis hepatitis C and diabetes mellitus presented to the ED for evaluation for suicidal ideation, patient admitted to the psychiatry torres, hospitalized for osseous see the patient regarding diabetic management. Patient seen and examined today he has no complaint except for his upper right quadrant abdominal discomfort which he has for a long time, he stated he stopped taking his insulin 7030 because he cannot afford it, he is currently on sliding scale will resume his 7030 and adjust the dose according to his blood sugar reading, we'll check A1c. Patient has no other complain anxiety depression Review of Systems Except as stated in HPI: all other systems reviewed are Neg Past Family Social History Allergies: Coded Allergies: No Known Allergies (Unverified , 05/07/17) Past Medical History History of coronary artery disease with stenting Cirrhosis COPD Diabetes mellitus GERD Remote history of alcohol and drug abuse Cholecystectomy Esophageal repair Past Surgical History as above Family History not aware of any significant family history Social History smoke 1 pack per day, remote history of alcohol and drug abuse patient has been sober for 6 years Physical Exam Vital Signs Vital Signs Date Time Temp Pulse Resp B/P (MAP) Pulse Ox O2 Delivery O2 Flow Rate FiO2 06/10/17 05:57 97.6 94 16 114/75 (88) 97 06/09/17 18:19 97.4 111 19 141/88 (105) 99 Physical Exam GENERAL: This is a well-nourished, well-developed patient, in no apparent distress. SKIN: No rashes, ecchymoses or lesions. Cool and dry. HEAD: Atraumatic. Normocephalic. No temporal or scalp tenderness. EYES: Pupils equal round and reactive. Extraocular motions intact. No scleral icterus. No injection or drainage. ENT: Nose without bleeding, purulent drainage or septal hematoma. Throat without erythema, tonsillar hypertrophy or exudate. Uvula midline. Airway patent. NECK: Trachea midline. No JVD or lymphadenopathy. Supple, nontender, no meningeal signs. CARDIOVASCULAR: Regular rate and rhythm without murmurs, gallops, or rubs. RESPIRATORY: Clear to auscultation. Breath sounds equal bilaterally. No wheezes , rales, or rhonchi. GASTROINTESTINAL: Abdomen soft, tender in the right upper rquadrant, nondistended. No hepato-splenomegaly, or palpable masses. No guarding. MUSCULOSKELETAL: Extremities without clubbing, cyanosis, or edema. No joint tenderness, effusion, or edema noted. No calf tenderness. Negative Homans sign bilaterally. NEUROLOGICAL: Awake and alert. Cranial nerves II through XII intact. Motor and sensory grossly within normal limits. Five out of 5 muscle strength in all muscle groups. Normal speech. Result Diagram: 06/09/17 1401 06/09/17 1401 Assessment and Plan Assessment and Plan 46 years old male admitted to the psych torres for suicidal ideation he has a history of History of coronary disease status post stenting History of hepatitis C, liver cirrhosis, currently with increased transaminitis with alkaline phosphatase history of gastroparesis Ongoing right upper quadrant abdominal pain Noncompliant patient was supposed to see GI as an outpatient Uncontrolled diabetes mellitus Recommendation I resumed his insulin 7030 at 10 units twice a day, Accu-Chek, regular insulin pre-meal will adjust according to his reading Considering his ongoing right upper quadrant tenderness and increased LFT with alkaline phosphataseI will consult GI agree with resuming rest of his medication for the rest of medical problem Thank you for the consultation we'll follow along with you Roscoe Martinez MD Jun 10, 2017 16:43
[2017-06-10 17:19] VITALS: BP 144/78; PULSE 111; RESP 18; TEMP 98; O2SAT 100
[2017-06-10] MEDS: MIRTAZAPINE ODT 15 MG TAB PO SCH (21:06)
[2017-06-10] MEDS: LORazepam 1 MG TAB PO PRN (21:47)
[2017-06-11 06:00] VITALS: BP 131/80; PULSE 92; RESP 16; TEMP 97.8; O2SAT 98
[2017-06-11] MEDS: INSULIN NovoLIN REGULAR SUPPLEMENTAL SCALE SQ SCH ×4 (08:00→21:10)
[2017-06-11] MEDS: INSULIN HUMAN NPH/R 70/30 1,000 UNITS/10 ML VIAL SQ SCH ×2 (08:00→17:00)
[2017-06-11] MEDS: INSULIN HUMAN NPH 1,000 UNITS/10 ML VIAL SQ SCH ×3 (08:00→17:00)
[2017-06-11] MEDS: REMOVE OLD PATCH T-DERMAL SCH (09:00)
[2017-06-11] MEDS: FAMOTIDINE 20 MG TAB PO SCH ×3 (09:31→18:55)
[2017-06-11] MEDS: hydrOXYzine PAMOATE 25 MG CAP PO SCH ×4 (09:31→21:06)
[2017-06-11] MEDS: ASPIRIN 81 MG CHEW TAB CHEW SCH (09:31)
[2017-06-11] MEDS: NICOTINE 21 MG/24 HR PATCH T-DERMAL SCH (09:32)
--- NOTE | 2017-06-11 12:01 | HHI.PYPN ---
Subjective Chief Complaint: Depression Remarks Patient was seen and case discussed with nursing. Patient remains perseverant on his abdominal pain rating a today is as a 12 out of 10. Again not many objective signs of pain. He is quite irritable, entitled and appreciative of his care here. Largely seclusive to room. Denies suicidal or homicidal ideation intent or plan Mental Status Examination Appearance: Appropriate Consciousness: Alert Orientation: x4 Motor Activity: Other (No motor abnormalities noted.) Speech: Unremarkable Language: Adequate Fund of Knowledge: Adequate Attention and Concentration: Adequate Memory: Unremarkable (grossly intact on clinical exam.) Mood: Angry, Other (dysphoric) Affect: Irritable Thought Process & Associations: Intact, Logical, Linear Thought Content: Appropriate Hallucination Type: None Delusion Type: None Suicidal Ideation: No Suicidal Plan: No Suicidal Intention: No Homicidal Ideation: No Homicidal Plan: No Homicidal Intention: No Insight: Fair Judgment: Impulsive Results Vitals/IOs Vital Signs Date Time Temp Pulse Resp B/P (MAP) Pulse Ox O2 Delivery O2 Flow Rate FiO2 06/11/17 06:00 97.8 92 16 131/80 (97) 98 06/08/17 12:32 Room Air Assessment & Plan Problem List: (1) Adjustment disorder with mixed anxiety and depressed mood ICD Codes: F43.23 - Adjustment disorder with mixed anxiety and depressed mood Assessment & Plan Continue current treatment plan Justification for Cont. Inpt. Patient will decompensate in a less restrictive setting Request HC Surrog/Guard Advoc?: No Manuel Burns DO Jun 11, 2017 12:01
--- NOTE | 2017-06-11 16:25 | PD.CONS ---
HPI History of Present Illness This is a 46 year old male with a history of gastroparesis, liver cirrhosis, Hepatitis C S/P unsuccessful tx with interferon/ribavirin, and esophageal varices, and cardiac stent who presented to the ED for evaluation for suicidal ideation, patient admitted to the psychiatry torres. Patient was evaluated by our GI services last yr for abdominal pain with elevated LFTs. The patient reports that he was diagnosed with liver cirrhosis and Hepatitis C in 1991. He completed Interferon and Ribavirin in 2001, but reports this was unsuccessful. He reports that he had his gallbladder removed about in November of 2016 and had liver bx done same time. States the pain is severe in RUQ area, constant, unbearable, on going for 3 weeks but getting worse. He also reports sharp pain in epigastric area, and LUQ area but that comes and goes. He has frequent nausea, dry heaving with occasional vomiting. Denies any hematemesis or melena/hematochezia. Endorses dysphagia for the past 3 weeks and has been on pureed diet, states the food get stuck in lower esophagus. Previous work up included CT scan abdomen and pelvis (03/26/17)---> Cirrhosis and portal hypertension with numerous varices as described above. GES (03/28/17)---> Delayed gastric emptying. MRI of abd 03/30/17 showed cirrhotic liver upper abd varices with spontaneous splenorenal shunt. He was then evaluated with EGD (02/15)---> distal esophagitis, mild patchy gastritis, patchy duodenitis. Pathology with acute esophagitis, no gastric mucosa is identified, benign fundic mucosa by Dr. Cotto. Patient was suppose to have f/u as an OP with GI but not able to afford any OP work up due to cost and lack of insurance, he is not able of afford any recommended medication including insulin due to cost as well. Patient quit alcohol in 2011. He does take Ibuprofen frequently (Helen Story) PFSH Past Medical History GERD CAD Liver Cirrhosis Hepatitis C, unsuccessful tx Esophageal varices Uncontrolled diabetes mellitus Lower extremity neuropathy Past Surgical History EGD Cholecystectomy and liver bx in November 2016 in [place] Cardiac catheterization with stent placement one month ago at [facility] (Helen Story) Coded Allergies: No Known Allergies (Unverified , 05/07/17) Medications Current Medications Medications (Trade) Dose Ordered Sig/Shae Route Start Time Stop Time Status Last Admin (Ativan) 1 mg Q6H PRN PO 06/08/17 17:00 06/10/17 21:47 (Ativan Inj) 1 mg Q6H PRN IM 06/08/17 17:00 (Tylenol) 650 mg Q4H PRN PO 06/08/17 17:00 06/08/17 20:12 (Milk Of Magnesia Liq) 30 ml DAILY PRN PO 06/08/17 17:00 (Mag-Al Plus Susp Liq) 30 ml Q6H PRN PO 06/08/17 17:00 (Aspirin Chew) 81 mg DAILY CHEW 06/09/17 09:00 06/11/17 09:31 (Vistaril) 25 mg QID PO 06/08/17 18:00 06/11/17 13:38 (Pepcid) 40 mg TID PO 06/08/17 18:00 06/11/17 13:38 (D50w (Vial) Inj) 50 ml UNSCH PRN IV PUSH 06/08/17 17:30 (Glucagon Inj) 1 mg UNSCH PRN OTHER 06/08/17 17:30 (NovoLIN R SUPPLEMENTAL SCALE) 1 ACHS SLIDING SCALE SQ 06/08/17 21:00 06/11/17 12:00 (D50w (Vial) Inj) 50 ml UNSCH PRN IV PUSH 06/08/17 17:30 (Glucagon Inj) 1 mg STAT PRN IM 06/08/17 17:30 (Remeron Soltab Odt) 15 mg HS PO 06/09/17 21:00 06/10/17 21:06 (Habitrol 21 Mg Patch.24 Hr) 1 patch DAILY T-DERMAL 06/09/17 15:15 06/11/17 09:32 Miscellaneous Information 1 DAILY T-DERMAL 06/10/17 09:00 (NovoLIN N INJ) 4 units TIDAC SQ 06/11/17 08:00 06/11/17 12:01 (NovoLIN 70/30 INJ) 20 units BID@08,17 SQ 06/11/17 17:00 Family History Patient was adopted, unaware of his family history Social History Smokes one pack per day 32 years. Quit alcohol and IV drugs in 2011. (Helen Story) Review of Systems Constitutional: COMPLAINS OF: Weight loss, Change in appetite Endocrine: DENIES: Polyuria Eyes: DENIES: Double Vision Ears, nose, mouth, throat: DENIES: Hoarseness Gastrointestinal: COMPLAINS OF: Abdominal pain, Diarrhea, Nausea, Vomiting, Difficulty Swallowing, Anorexia, DENIES: Black stools, Bloody stools, Odynophagia, Swelling of Abdomen, Heartburn, Hematemesis Genitourinary: DENIES: Hematuria Musculoskeletal: DENIES: Back pain Integumentary: DENIES: Jaundice Hematologic/lymphatic: DENIES: Bruising Immunologic/allergic: DENIES: Eczema Neurologic: DENIES: Abnormal gait Psychiatric: DENIES: Anxiety (Helen Story) GI Exam Vitals I&O Vital Signs Date Time Temp Pulse Resp B/P (MAP) Pulse Ox O2 Delivery O2 Flow Rate FiO2 06/11/17 06:00 97.8 92 16 131/80 (97) 98 06/10/17 17:19 98.0 111 18 144/78 (100) 100 Physical Examination HEENT: normocephalic; atraumatic; no jaundice. CHEST: Chest is clear to auscultation and percussion. CARDIAC: Regular rate and rhythm with no murmur gallop or rubs. ABDOMEN: Soft, nondistended, diffused abd tenderness; hepatosplenomegaly; bowel sounds are present in all four quadrants. EXTREMITIES: No clubbing, cyanosis, or edema. SKIN: Normal; no rash; no jaundice. STORAGE AND BACKUP ADMINISTRATOR: No focal deficits; alert and oriented times three. (Helen Story) Assessment and Plan Plan - Abdominal pain/Nausea/dry heaves. This is getting worse, unbearable. S/P EGD ( 02/15/17)---> distal esophagitis, mild patchy gastritis, patchy duodenitis. Pathology with acute esophagitis, no gastric mucosa is identified, benign fundic mucosa by Dr. Cotto. MRI of abd 03/30/17 showed cirrhotic liver upper abd varices with spontaneous splenorenal shunt. CT scan abdomen and pelvis (03/26/17)---> Cirrhosis and portal hypertension with numerous varices as described above. GES (03/28/17)- --> Delayed gastric emptying. He does have elevated LFTs (AST/ALT) not in obstructive pattern which seems to be chronic in nature, Of note, he has uncontrolled DM with peripheral neuropathy. - Elevated LFTs/Liver cirrhosis. Dx in 1991. Quit drinking in 2011. LFT with chronic elevation in nature, they are trending up Patient is s/p cholecystectomy and liver bx in November of 2016 - Dysphagia- states the food gets stuck and has been on pureed diet mostly - Gastroparesis - Hepatitis C, S/P unsuccessful tx with interferon/ribavirin. - GERD. pt not able to afford any tx - Thrombocytopenia. 116,000. - Uncontrolled DM. Per attending. - Suicidal ideation- per psych PLAN: - FRANK, low sodium diet - US - Barium swallow - EGD/dill in the am - LFts, AFP in the am - Trial of Bethanechol - cont. Pepcid - Supportive care - Further recommendations to follow based on results of above - Pt seen and examined by Dr. Davenport and myself and this note is written on his behalf (Helen Story) Physician Comments Patient seen and examined Agree with above Continue with current supportive care Monitor labs EGD tomorrow with possible dilation (Lazarus Davenport MD) Helen Story Jun 11, 2017 16:25 Lazarus Davenport MD Jun 11, 2017 23:50
[2017-06-11 18:29] VITALS: BP 147/93; PULSE 106; RESP 17; TEMP 98.1; O2SAT 100
[2017-06-11] MEDS: MIRTAZAPINE ODT 15 MG TAB PO SCH (21:00)
[2017-06-11] MEDS: BETHANECHOL CHL 10 MG TAB PO SCH (21:07)
[2017-06-11] MEDS: LORazepam 1 MG TAB PO PRN (22:06)
[2017-06-12 06:02] VITALS: BP 124/85; PULSE 102; RESP 18; TEMP 97.6; O2SAT 98
[2017-06-12] MEDS: BETHANECHOL CHL 10 MG TAB PO SCH (06:08)
[2017-06-12] MEDS: INSULIN HUMAN NPH 1,000 UNITS/10 ML VIAL SQ SCH (07:51)
[2017-06-12] MEDS: INSULIN NovoLIN REGULAR SUPPLEMENTAL SCALE SQ SCH (07:51)
[2017-06-12] MEDS: INSULIN HUMAN NPH/R 70/30 1,000 UNITS/10 ML VIAL SQ SCH (07:51)
--- NOTE | 2017-06-12 09:16 | RADRPT ---
EXAM DATE/TIME: 06/12/2017 07:58 [facility] COMPARISON: CT ABDOMEN & PELVIS W CONTRAST, May 20, 2017, 18:42. INDICATIONS : Abdominal pain. MEDICAL HISTORY : Hypertension. Chronic obstructive pulmonary disease. Gastroesophageal reflux disease. Glasses. Migrai ne. Anticoagualnt therapy. Chest pain. Hepatits C. Cirrhosis. Depression. Anxiety. SURGICAL HISTORY : Cholecystectomy. Cardiac stents. Esophogus repair. ENCOUNTER: Initial ACUITY: 1 day PAIN SCORE: 10/10 LOCATION: Abdomen. MEASUREMENTS: LIVER: 16.3 cm length COMMON DUCT: 4 mm RIGHT KIDNEY: 12.1 x 6.2 x 7.3 cm LEFT KIDNEY: 11.6 x 5.7 x 6.9 cm SPLEEN: 11.8 cm length AORTA: 1.7cm maximal FINDINGS: LIVER: The liver is diffusely heterogeneous. No mass or ductal dilatation. Hepatopedal flow within the marin l vein. COMMON DUCT: No intraluminal mass or stone visualized. GALLBLADDER: Contains no stones, demonstrates no wall thickening or pericholecystic fluid. PANCREAS: The visualized portions are within normal limits. RIGHT KIDNEY: No hydronephrosis, stone or mass. LEFT KIDNEY: No hydronephrosis, stone or mass. SPLEEN: No focal lesion. AORTA: Non aneurysmal. IVC: Within normal limits. CONCLUSION: 1. The liver is heterogeneous consistent with underlying hepatocellular disease. The portal vein cont inues to show hepatopedal flow. Shay Champagne Jr., MD on June 12, 2017 at 9:11 Board Certified Radiologist. This report was verified electronically.
--- NOTE | 2017-06-12 09:23 | HHI.PYPN ---
Subjective Chief Complaint: Depression Mental Status Examination Appearance: Appropriate Consciousness: Alert Orientation: x4 Motor Activity: Other (No motor abnormalities noted.) Speech: Unremarkable Language: Adequate Fund of Knowledge: Adequate Attention and Concentration: Adequate Memory: Unremarkable (grossly intact on clinical exam.) Mood: Angry, Other (dysphoric) Affect: Irritable Thought Process & Associations: Intact, Logical, Linear Thought Content: Appropriate Hallucination Type: None Delusion Type: None Suicidal Ideation: No Suicidal Plan: No Suicidal Intention: No Homicidal Ideation: No Homicidal Plan: No Homicidal Intention: No Insight: Fair Judgment: Impulsive Results Vitals/IOs Vital Signs Date Time Temp Pulse Resp B/P (MAP) Pulse Ox O2 Delivery O2 Flow Rate FiO2 06/12/17 06:02 97.6 102 18 124/85 (98) 98 06/08/17 12:32 Room Air Assessment & Plan Problem List: (1) Adjustment disorder with mixed anxiety and depressed mood ICD Codes: F43.23 - Adjustment disorder with mixed anxiety and depressed mood Assessment & Plan Estimated LOS: days Request HC Surrog/Guard Advoc?: No Khai Myrick MD Jun 12, 2017 09:23
--- NOTE | 2017-06-12 10:54 | GIPROC ---
[facility] [address] [facility]. [facility], [address] EGD PROCEDURE REPORT EXAM DATE: 06/12/2017 PATIENT NAME: Quan Johnson MR #: [id number] BIRTHDATE: 1970 ATTENDING: Murtaza Guerrero MD ORDER #: [id number] SPEEDER FRAME TENDER: Mary Don and Bruna Sequeira STATUS: inpatient INDICATIONS: The patient is a 46 yr old male here for an EGD due to epigastric abdominal pain and dysphagia PROCEDURE PERFORMED: EGD w/ biopsy MEDICATIONS: None and Per Anesthesia. TOPICAL ANESTHETIC: CONSENT: The patient understands the risks and benefits of the procedure and understands that these risks include, but are not limited to: sedation, allergic reaction, infection, perforation and/or bleeding. Alternative means of evaluation and treatment include, among others: physical exam, x-rays, and/or surgical intervention. The patient elects to proceed with this endoscopic procedure. medical equipment was checked for proper function. Hand hygiene and appropriate measures for infection prevention was taken. After the risks, benefits and alternatives of the procedure were thoroughly explained, Informed consent was verified, confirmed and timeout was successfully executed by the treatment team. The patient was anesthetized with topical anesthesia and the Pentax EG-[id number] endoscope was introduced through the mouth and advanced to the second portion of the duodenum. Retroflexed views revealed no abnormalities The gastroscope was then slowly withdrawn and removed. ESOPHAGUS: The mucosa of the esophagus appeared normal. STOMACH: There was erythematous moderate gastritis in the gastric antrum. A biopsy was performed using cold forceps. Sample sent for histology. Moderate portal hypertensive gastropathy was found in the gastric body. DUODENUM: The duodenal mucosa appeared normal in the bulb and second portion of the duodenum. ADVERSE EVENTS: There were no complications. IMPRESSIONS: 1. The esophagus appeared normal 2. There was erythematous gastritis in the gastric antrum; biopsy was performed 3. Portal hypertensive gastropathy was found in the gastric body 4. Normal duodenal mucosa in the bulb and second portion of the duodenum 5. Retroflexed views revealed no abnormalities RECOMMENDATIONS: 1. Await biopsy results. Biopsy results will not be ready for 7-10 days. If you don't hear from us in two weeks, call our office for biopsy results. 2. Anti-reflux regimen 3. Continue PPI 4. Avoid NSAIDS PATIENT CONDITION: stable DISPOSITION: Inpatient REPEAT EXAM: Return 1 year EGD pending biopsy results Murtaza Guerrero MD eSigned: Murtaza Guerrero MD 06/12/2017 10:53 AM cc: PATIENT NAME: Johnson, Quan J MR#: [id number]
--- NOTE | 2017-06-12 12:47 | RADRPT ---
EXAM DATE/TIME: 06/12/2017 11:57 [place] COMPARISON: No previous studies available for comparison. INDICATIONS : Post EGD, dysphagia for 3 weeks FLUORO TIME: 0.8 minutes IMAGE COUNT: 17 CONTRAST: 1. Gastrografin (Diatrizoate Meglumine and Diatrizoate Sodium) MEDICAL HISTORY : Gastroesophageal reflux disease. Hepatitis C. Cirrhosis. ruptured esophagus 2009, COPD, gastropar esis SURGICAL HISTORY : surgical repair of esophagus 2009 ENCOUNTER: Subsequent ACUITY: 3 weeks PAIN SCORE: 6/10 LOCATION: Bilateral esophagus FINDINGS: Gastrografin swallow foreign esophageal dilation reveals no evidence for leak or obstruction. CONCLUSION: Negative for leak or obstruction.. Orlando Alvarado MD FACR on June 12, 2017 at 12:43 Board Certified Radiologist. This report was verified electronically.
--- NOTE | 2017-06-12 13:47 | HHI.DS ---
Psychiatry Discharge Summary Inpatient Psychiatric care?: Yes Advance Directive: No Reason Not Provided: REFUSED Mental Health AdvanceDirective: No Health Care Proxy: No Admission Admission Date Jun 08, 2017 at 17:02 Admission Diagnosis: (1) Adjustment disorder with mixed anxiety and depressed mood ICD Code: F43.23 - Adjustment disorder with mixed anxiety and depressed mood Brief History 46-year-old male diagnosed at [facility] and [facility] acted there for "severe major depression". According to the [place] act, the patient has attempted to overdose on insolent 3 times "recently". According to the [place] act, his last suicide attempt, approximately one week ago, consisted of injecting himself with 180 units of insulin. Again according to the [place]o act, the patient drove his blood sugar down to 67. The patient remarked "I should have taken more. I can't live with the pain." Patient points to pain "all over" that began approximately 2 years ago and is of unknown origin. According to the patient, it is the pain that is causing him to want to kill himself. The patient has apparently been treated at [facility] and [facility] and provided with antidepressant medication. However he states he cannot afford his medicines and therefore has been noncompliant. When the patient attended [facility] today, his contact there, Parish Bass acted him because she felt he would do another suicide attempt. Apparently the patient was living in [place] and sent to [place] by bus, with a past from the [facility] system. He does have 2 sisters that live in this area, one of whom he has been living with and the other who works at this hospital. 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 He does report having a cirrhotic liver. He reports multiple symptoms of depressed mood, anhedonia, anxiety, insomnia, appetite disturbance, diminished energy, social withdrawal, problems with concentration, diminished self-esteem, and suicidal ideation continuously with plan and multiple attempts. Tobacco Use In Past 30 Days: 5 or More Cigarettes/Day Alcohol Use: Never Hospital Course Patient was admitted to a locked, inpatient psychiatric unit. A general medical consultation and gastroenterology consultation were obtained. Appropriate precautions were in place throughout patient's hospital stay. Patient was seen and examined on the unit by psychiatry and also visited by counselor. Psychotropic medications were adjusted. There has been no evidence of any suicidality or homicidality on the inpatient unit. Charting indicates that the patient comes out for meals but otherwise participates little in unit activities. Patient is to be discharged from the inpatient psychiatric unit today for GI procedure, after which he will be readmitted to the inpatient psychiatric unit. Today, 06/12: Patient seen and examined with nurse. Chart reviewed. Case discussed with nursing staff. On my examination today, patient presents as supercilious, fault-finding, sarcastic, belittling of care. Cluster B personality traits, noted at my initial contact, are more evident today. He complains of anxiety but does not appear anxious. He complains of pain but once again does not exhibit any pain behaviors. He is lying calmly in bed in no evident distress. He denies SI/HI. He does complain of some poor sleep, slept 6 hours per charting. We discuss titrating Atarax for complaints of anxiety and Remeron for complaints of poor sleep. We discuss need for sister with whom patient lives to secure home environment in advance of patient' s return home. He is hopeful for discharge tomorrow. Denies side effects from meds. --Titrate Remeron to 30mg qHS. --Titrate Atarax to 50mg TID. --R/B/A for med changes d/w patient. --Counselor to call sister to instruct her to secure the home of potential means of harm to self/others. In particular, sister is to secure and dispense meds. --Discharge to GI lab today for procedure. Results Blood Pressure 124 / 85 Vital Signs Date Time Temp Pulse Resp B/P (MAP) Pulse Ox O2 Delivery O2 Flow Rate FiO2 06/12/17 06:02 97.6 102 18 124/85 (98) 98 06/08/17 12:32 Room Air Laboratory Tests Test 06/09/17 14:01 Platelet Count 116 TH/MM3 (150-450) Mean Platelet Volume 6.9 FL (7.0-11.0) Monocytes (%) (Auto) 9.2 % (0.0-8.0) Random Glucose 299 MG/DL (74-106) Alkaline Phosphatase 224 U/L (45-117) Aspartate Amino Transf (AST/SGOT) 212 U/L (15-37) Alanine Aminotransferase (ALT/SGPT) 216 U/L (12-78) Total Bilirubin 1.1 MG/DL (0.2-1.0) Hemoglobin A1c 11.3 % (4.3-6.0) Triglycerides Level 290 MG/DL (42-150) Vitamin B12 Level 1205 PG/ML (193-986) 25-Hydroxy Vitamin D Total 15.3 ng/ML (30-100) Laboratory Results Test 06/09/17 14:01 Cholesterol Level 177 MG/DL (120-200) HDL Cholesterol 57.7 MG/DL (40.0-60.0) Hemoglobin A1c 11.3 % (4.3-6.0) LDL Cholesterol 61 MG/DL (0-99) Triglycerides Level 290 MG/DL (42-150) Summary of Procedures Discharge today to GI lab for procedure. Imaging Last Impressions Upper GI/Barium Swallow X-Ray 06/12/17 2348 Signed Impressions: Service Date/Time: Monday, June 12, 2017 11:57 - CONCLUSION: Negative for leak or obstruction.. Orladno Alvarado MD FACR Abdomen Ultrasound 06/12/17 0000 Signed Impressions: Service Date/Time: Monday, June 12, 2017 07:58 - CONCLUSION: 1. The liver is heterogeneous consistent with underlying hepatocellular disease. The portal vein continues to show hepatopedal flow. Shay Champagne Jr., MD Pending results at discharge: No Medications # of Antipsychotic meds at D/C: 0 Approp Antipsych med options 1 - Minimum of three failed multiple trials of monotherapy. 2 - Documented plan to taper to monotherapy due to previous use of multiple meds OR cross-taper in progress at D/C. 3 - Documentation of augmentation of Clozapine. 4 - Justification other than those listed in allowable values 1-3, document here : Discharge Discharge Date: Jun 12, 2017 Discharge Diagnosis: (1) Adjustment disorder with mixed anxiety and depressed mood Diagnosis: Principal ICD Code: F43.23 - Adjustment disorder with mixed anxiety and depressed mood (2) Cluster B personality disorder Diagnosis: Secondary ICD Code: F60.9 - Personality disorder, unspecified Pt Condition on Discharge: Stable Discharge Disposition: Disch to Another Hospital Discharge Instructions Diet Instructions: Nothing By Mouth Activities you can perform: Weight Bearing as Teressa Scheduled Appointment: Returning to psych floor after procedure Discharge Time <= 30 minutes Mental Status Examination Appearance: Appropriate Consciousness: Alert Orientation: x4 Motor Activity: Other (no abnormal motor movements noted) Speech: Unremarkable Language: Adequate Fund of Knowledge: Adequate Attention and Concentration: Adequate Memory: Unremarkable Mood: Angry, Oppositional, Other (anxious) Affect: Appropriate Thought Process & Associations: Intact, Logical, Linear Thought Content: Appropriate Hallucination Type: None Delusion Type: None Suicidal Ideation: No Suicidal Plan: No Suicidal Intention: No Homicidal Ideation: No Homicidal Plan: No Homicidal Intention: No Insight: Fair Judgment: Impulsive Discharge/Advance Care Plan Health Problems: (1) Adjustment disorder with mixed anxiety and depressed mood Goals to promote your health * To prevent worsening of your condition and complications * To maintain your health at the optimal level Directions to meet your goals Take your medications as prescribed Follow your dietary instruction Follow activity as directed Keep your appointments as scheduled Take your immunizations and boosters as scheduled If your symptoms worsen call your PCP, if no PCP go to Urgent Care Center or Emergency Room For 12/12 questions related to your inpatient stay or results of tests pending at discharge, please contact Dr. Khai Myrick at Smoking is Dangerous to Your Health. Avoid second hand smoking Khai Myrick MD Jun 12, 2017 13:47
--- NOTE | 2017-06-12 14:02 | HHI.PR ---
Subjective Remarks delayed entry note from 06/11/2017 Patient still complaining of right upper quadrant pain and some difficulty swallowing GI consulted no fever or chills, no diarrhea Objective Vitals Vital Signs Date Time Temp Pulse Resp B/P (MAP) Pulse Ox O2 Delivery O2 Flow Rate FiO2 06/12/17 06:02 97.6 102 18 124/85 (98) 98 06/11/17 18:29 98.1 106 17 147/93 (111) 100 I/O 06/11/17 06/11/17 06/11/17 06/12/17 06/12/17 06/12/17 07:00 15:00 23:00 07:00 15:00 23:00 Intake Total 240 ml Balance 240 ml Intake Oral 240 ml Result Diagram: 06/09/17 1401 06/09/17 1401 Objective Remarks GENERAL: This is a well-nourished, well-developed patient, in no apparent distress. SKIN: No rashes, ecchymoses or lesions. Cool and dry. HEAD: Atraumatic. Normocephalic. No temporal or scalp tenderness. EYES: Pupils equal round and reactive. Extraocular motions intact. No scleral icterus. No injection or drainage. ENT: Nose without bleeding, purulent drainage or septal hematoma. Throat without erythema, tonsillar hypertrophy or exudate. Uvula midline. Airway patent. NECK: Trachea midline. No JVD or lymphadenopathy. Supple, nontender, no meningeal signs. CARDIOVASCULAR: Regular rate and rhythm without murmurs, gallops, or rubs. RESPIRATORY: Clear to auscultation. Breath sounds equal bilaterally. No wheezes , rales, or rhonchi. GASTROINTESTINAL: Abdomen soft, tender in the right upper rquadrant, nondistended. No hepato-splenomegaly, or palpable masses. No guarding. MUSCULOSKELETAL: Extremities without clubbing, cyanosis, or edema. No joint tenderness, effusion, or edema noted. No calf tenderness. Negative Homans sign bilaterally. NEUROLOGICAL: Awake and alert. Cranial nerves II through XII intact. Motor and sensory grossly within normal limits. Five out of 5 muscle strength in all muscle groups. Normal speech. A/P Assessment and Plan 46 years old male admitted to the psych torres for suicidal ideation he has a history of History of coronary disease status post stenting History of hepatitis C, liver cirrhosis, currently with increased transaminitis with alkaline phosphatase history of gastroparesis Ongoing right upper quadrant abdominal pain Noncompliant patient was supposed to see GI as an outpatient Uncontrolled diabetes mellitus Recommendation Continue insulin 7030 at 10 units twice a day, Accu-Chek, regular insulin pre- meal will adjust according to his reading Consulted GI regarding ongoing right upper quadrant tenderness and increased LFT with alkaline phosphatase agree with resuming rest of his medication for the rest of medical problem Roscoe Martinez MD Jun 12, 2017 14:02
[2017-06-12 17:20] LABS: ALBUMIN 3.2 GM/DL (3.4-5.0); DIRECT BILIRUBIN ADULT 0.5 MG/DL (0.0-0.2)
[2017-06-12 17:23] LABS: INDIRECT BILIRUBIN 0.4 MG/DL (0.0-0.8); TOTAL BILIRUBIN ADULT 0.9 MG/DL (0.2-1.0); TOTAL PROTEIN 6.9 GM/DL (6.4-8.2)
[2017-06-13] MEDS ORDERED: NOVO7030P2 SQ (10:32)
[2017-06-13] MEDS ORDERED: HYDR50CA PO (10:32)
[2017-06-13] MEDS ORDERED: PANT40TA3 PO (10:32)
[2017-06-13] MEDS ORDERED: MIRTA15 PO (10:32)
[2017-06-13] MEDS ORDERED: NOVONP2 SQ (10:32)
[2017-06-13] MEDS ORDERED: BETH10 PO (11:46)
== END 2017-06-12 09:49 | disposition home or self-care (01) | DRG 882 ==
LOC: NEDAMB 14:45 → NEDA 06-08 17:02 → H260 06-08 17:50
PROVIDERS: ADMIT Psychiatry & Neurology Psychiatry; ATTEND Psychiatry & Neurology Psychiatry
DX: F43.23 Adjustment disorder with mixed anxiety and depressed mood (principal); F60.9 Personality disorder, unspecified; E11.43 Type 2 diabetes mellitus with diabetic autonomic (poly)neuropathy; K31.84 Gastroparesis; E11.65 Type 2 diabetes mellitus with hyperglycemia; K74.60 Unspecified cirrhosis of liver; Z79.4 Long term (current) use of insulin; Z91.120 Patient's intentional underdosing of medication regimen due to financial hardship; Z91.19 Patient's noncompliance with other medical treatment and regimen; G89.29 Other chronic pain; B19.20 Unspecified viral hepatitis C without hepatic coma; I25.10 Atherosclerotic heart disease of native coronary artery without angina pectoris; Z95.5 Presence of coronary angioplasty implant and graft; F17.210 Nicotine dependence, cigarettes, uncomplicated; J44.9 Chronic obstructive pulmonary disease, unspecified; R13.10 Dysphagia, unspecified; K21.0 Gastro-esophageal reflux disease with esophagitis
CPT/HCPCS: 74220; 76700; 80053; 80061; 80076; 80307; 82105; 82306; 82607; 82948; 83036; 84443; 85025; 93005; 96372; 96374; J1815; J2270; Q0177

== ENCOUNTER 2017-06-12 10:17 | Day surgery (SDC) | payer OTHER ==
[~2017-06-12 10:17] MED LIST changes: +ASPI-516 CHEW; +NOVO7030P2 SQ; +VIST25CA PO; +ZOLO100T PO; -ZOLO50TA PO
[2017-06-12 11:02] VITALS: BP 128/91; PULSE 108; RESP 18; TEMP 98.7; O2SAT 100
[2017-06-12] MEDS ORDERED: LIDOCAINE HCL 1% PF 5 ML SYRINGE OTHER ONE (12:00)
[2017-06-12] MEDS ORDERED: PROPOFOL 200 MG/20 ML AMP IV ONE (12:00)
[2017-06-12] MEDS ORDERED: DIATRIZOATE MEGLUM/DIATRIZOATE SOD 120 ML BTL (for RAD DIAG) PO ONE (12:01)
[2017-06-13] MEDS ORDERED: NOVO7030P2 SQ (10:32)
[2017-06-13] MEDS ORDERED: PANT40TA3 PO (10:32)
[2017-06-13] MEDS ORDERED: NOVONP2 SQ (10:32)
[2017-06-13] MEDS ORDERED: HYDR50CA PO (10:32)
[2017-06-13] MEDS ORDERED: MIRTA15 PO (10:32)
[2017-06-13] MEDS ORDERED: BETH10 PO (11:46)
--- NOTE | 2017-06-20 15:52 | MR ---
cc: BREANNA DODD M.D. DATE: 06/14/2017 REASON FOR PROCEDURE: Nausea, abdominal pain, dysphagia. PROCEDURE: Esophagogastroduodenoscopy. PROCEDURE: After informed consent and explaining the risks of the procedure to the patient including bleeding, perforation, risk of anesthesia Mr. Johnsno placed in the left lateral decubitus position and sedated with the help of anesthesia. Upper endoscope advanced from the mouth to the second portion of the duodenum. Normal duodenum seen. The scope was withdrawn into the stomach, revealing some gastritis and some portal gastropathy this was non bleeding. Retroflexion was normal, the esophageal lining was normal endoscope was then withdrawn. The patient appeared tolerate procedure well. There were no apparent immediate complications. IMPRESSION 1. Portal gastropathy 2. Gastritis. RECOMMENDATIONS 1. Protonix 40 mg daily. 2. Await biopsy results 3. Abstain from alcohol. MD HINA Cabrera/chad /1:54 PM /3:47 PM
== END 2017-06-12 12:30 | disposition home or self-care (01) ==
LOC: HDIC 10:17 → HSDC 10:17 → UNDOADMIN 10:17 → HSDC 12:30
PROVIDERS: ATTEND Internal Medicine Gastroenterology
DX: K29.70 Gastritis, unspecified, without bleeding (principal); K31.89 Other diseases of stomach and duodenum; R10.9 Unspecified abdominal pain; R13.10 Dysphagia, unspecified; R11.0 Nausea; K31.84 Gastroparesis
CPT/HCPCS: 00731; 43239; 88305; 88312; Q9963

== ENCOUNTER 2017-06-12 12:31 | Inpatient (IN) | payer SELFPAY ==
[2017-06-12] MEDS ORDERED: ACETAMINOPHEN 325 MG TAB PO (13:30)
[2017-06-12] MEDS ORDERED: BENZTROPINE MESYLATE 1 MG TAB PO (13:30)
[2017-06-12] MEDS ORDERED: MAGNESIUM HYDROXIDE SUSP 30 ML CUP PO (13:30)
[2017-06-12] MEDS ORDERED: GLUCAGON 1 MG/ML VIAL OTHER (13:30)
[2017-06-12] MEDS ORDERED: BENZTROPINE MESYLATE 2 MG/2 ML VIAL IM (13:30)
[2017-06-12] MEDS ORDERED: ALUMINUM/MAGNESIUM/SIMETH 30 ML CUP PO (13:30)
[2017-06-12] MEDS ORDERED: DEXTROSE 50% IN WATER 50 ML VIAL(D50) IV PUSH (13:30)
[2017-06-12] MEDS: BETHANECHOL CHL 10 MG TAB PO ×2 (14:00→21:43)
[2017-06-12] MEDS: INSULIN NovoLIN REGULAR SUPPLEMENTAL SCALE SQ ×2 (16:23→21:00)
[2017-06-12] MEDS: INSULIN HUMAN NPH/R 70/30 1,000 UNITS/10 ML VIAL SQ (16:23)
[2017-06-12] MEDS: FAMOTIDINE 20 MG TAB PO (16:23)
[2017-06-12] MEDS: INSULIN HUMAN NPH 1,000 UNITS/10 ML VIAL SQ (16:23)
[2017-06-12] MEDS: MIRTAZAPINE 15 MG TAB PO (20:15)
[2017-06-13] MEDS: BETHANECHOL CHL 10 MG TAB PO ×2 (06:00→12:16)
[2017-06-13] MEDS: INSULIN NovoLIN REGULAR SUPPLEMENTAL SCALE SQ ×2 (08:00→11:37)
[2017-06-13] MEDS: INSULIN HUMAN NPH 1,000 UNITS/10 ML VIAL SQ ×2 (08:00→11:36)
[2017-06-13] MEDS: INSULIN HUMAN NPH/R 70/30 1,000 UNITS/10 ML VIAL SQ (08:00)
[2017-06-13] MEDS: FAMOTIDINE 20 MG TAB PO ×2 (08:04→11:37)
[2017-06-13] MEDS: NICOTINE 21 MG/24 HR PATCH T-DERMAL (08:05)
[2017-06-13] MEDS: REMOVE OLD PATCH T-DERMAL (08:05)
[2017-06-13] MEDS: ASPIRIN 81 MG CHEW TAB CHEW (08:05)
[2017-06-13] MEDS: PANTOPRAZOLE SOD 40 MG DELAYED RELEASE TAB PO (09:00)
[2017-06-13] MEDS ORDERED: INSULIN HUMAN NPH/R 70/30 1,000 UNITS/10 ML VIAL SQ (17:00)
== END 2017-06-13 12:15 | disposition home or self-care (01) | DRG 882 ==
LOC: H260 12:31
DX: F43.23 Adjustment disorder with mixed anxiety and depressed mood (principal); K76.6 Portal hypertension; R45.851 Suicidal ideations; K31.84 Gastroparesis; K74.60 Unspecified cirrhosis of liver; E11.43 Type 2 diabetes mellitus with diabetic autonomic (poly)neuropathy; F60.89 Other specific personality disorders; I25.10 Atherosclerotic heart disease of native coronary artery without angina pectoris; K29.70 Gastritis, unspecified, without bleeding; E11.65 Type 2 diabetes mellitus with hyperglycemia; F17.210 Nicotine dependence, cigarettes, uncomplicated; Z79.4 Long term (current) use of insulin; Z86.19 Personal history of other infectious and parasitic diseases; Z91.19 Patient's noncompliance with other medical treatment and regimen; Z95.5 Presence of coronary angioplasty implant and graft
CPT/HCPCS: 82948

== ENCOUNTER 2017-09-08 10:00 | Emergency (ER) | payer OTHER ==
[2017-09-08] VITALS (7 sets, daily range): BP systolic 136–170; BP diastolic 85–110; PULSE 91–120; RESP 16–18; TEMP 98.5–98.7; O2SAT 99–100
[~2017-09-08] VITALS: Ht 188 cm; Wt 80.0 kg
[~2017-09-08 10:00] MED LIST changes: +BETH10 PO; +HYDR50CA PO; +MIRTA15 PO; +NOVONP2 SQ; +PANT40TA3 PO; -TYLE325T PO; -VIST25CA PO; -ZOLO100T PO; -[UNRECOGNIZED DRUG - OTHER]
[2017-09-08] MEDS ORDERED: SODIUM CHLORIDE 0.9% FLUSH 10 ML FLUSH IVF PRN (10:30)
--- NOTE | 2017-09-08 10:35 | PD ---
HPI Chief Complaint: Psychiatric Symptoms Time Seen by Provider: 10:14 Travel History International Travel<30 days: No Contact w/Intl Traveler<30days: No Traveled to known affect area: No History of Present Illness HPI Patient is a 46-year-old male presenting to the emergency department for psychiatric evaluation under Lugo act. Patient states he went to [facility] this morning, he then stated that he did not want to live. The Lugo act was initiated and patient was brought to emergency department for medical clearance. Patient reports using alcohol, inhaling keyboard frame cleaner, and taking whatever pills he can get his hands on in order to help him sleep. He last drank alcohol 2 days ago, he last snorted the keyboard frame cleaner last night. He denies illicit drug use. Medications he uses her [id number] sleeping pills. Patient states he was incarcerated and was released 1 month ago , he has not been on his medications since he was incarcerated which he feels is contributing to his symptoms of depression and suicidal ideations. Patient states he has a limited time left on this earth because of his health problems including cirrhosis. Symptom onset is unknown, symptoms are severe in nature. Symptoms are exacerbated due to homelessness and medication noncompliance. PFSH Past Medical History Hx Anticoagulant Therapy: Yes Anxiety: Yes Depression: Yes Cardiac Catheterization: Yes (stent) Cardiovascular Problems: Yes Chest Pain: Yes Cirrhosis: Yes COPD: Yes Diabetes: Yes Gastrointestinal Disorders: Yes (Gastritis) GERD: Yes Hepatitis: Yes (C) Hypertension: Yes Medical other: Yes (NEUROPATHY) Neurologic: Yes Migraines: Yes Past Surgical History Cholecystectomy: Yes Coronary Stent: Yes Other Surgery: Yes ("ESOPHAGEAL REPAIR") Social History Alcohol Use: Yes Tobacco Use: No Substance Use: Yes (INHALANTS, "SLEEPING PILLS") Allergies-Medications (Allergen,Severity, Reaction): Coded Allergies: No Known Allergies (Unverified , 09/08/17) Reported Meds & Prescriptions Reported Meds & Active Scripts Active Novolin N Inj (Insulin Human NPH) 1,000 Unit/10 Ml Vial 4 Units SQ TIDAC 1 Days Order is to update med rec only. Pt has adequate supply. Novolin 70-30 Inj (Insulin Human Isoph/Insulin Regular) 1,000 Unit/10 Ml Vial 28 Units SQ BID@ Pharmacist: Sister is to picker feeder Rx to secure meds for safety. Pantoprazole (Pantoprazole Sodium) 40 Mg Tab 40 Mg PO DAILY 15 Days Pharmacist: Sister is to picker feeder Rx to secure meds for safety. Mirtazapine 15 Mg Tab 30 Mg PO HS 15 Days Pharmacist: Sister is to picker feeder Rx to secure meds for safety. Reported Famotidine 40 Mg Tab 40 Mg PO TID Review of Systems Except as stated in HPI: all other systems reviewed are Neg Psychiatric: Positive: Anxiety, Depression, Suicidal Ideations, Mood Disorder, Substance Abuse Physical Exam Narrative GENERAL: Well-developed, well-nourished, well-kept male. Presenting in no acute distress. SKIN: Warm and dry. No rash or obvious lesions HEAD: Atraumatic. Normocephalic. EYES: Pupils equal and round. No scleral icterus. No injection or drainage. ENT: No nasal bleeding or discharge. Mucous membranes pink and moist. NECK: Trachea midline. No JVD. CARDIOVASCULAR: Tachycardic RESPIRATORY: No accessory muscle use. Clear to auscultation. Breath sounds equal bilaterally, diminished in bases. GASTROINTESTINAL: Abdomen soft, non-tender, nondistended. Hepatic and splenic margins not palpable. MUSCULOSKELETAL: Extremities without clubbing, cyanosis, or edema. No obvious deformities. NEUROLOGICAL: Awake and alert. No obvious cranial nerve deficits. Motor grossly within normal limits. Five out of 5 muscle strength in the arms and legs. Normal speech. PSYCHIATRIC: Depressed mood and flat affect; insight and judgment normal. Data Data Last Documented VS Vital Signs Date Time Temp Pulse Resp B/P (MAP) Pulse Ox O2 Delivery O2 Flow Rate FiO2 09/08/17 13:53 91 16 146/85 (105) 100 Room Air 09/08/17 10:07 98.5 Orders Orders Complete Blood Count With Diff (09/08/17 10:25) Comprehensive Metabolic Panel (09/08/17 10:25) Thyroid Stimulating Hormone (09/08/17 10:25) Oximetry (09/08/17 10:25) Iv Access Insert/Monitor (09/08/17 10:25) Ecg Monitoring (09/08/17 10:25) Psych Screen (09/08/17 10:25) Sodium Chloride 0.9% Flush (Ns Flush) (09/08/17 10:30) Drug Screen, Random Urine (09/08/17 10:25) Alcohol (Ethanol) (09/08/17 10:25) Salicylates (Aspirin) (09/08/17 10:25) Tylenol (Acetaminophen) (09/08/17 10:25) Chest, Single Ap (09/08/17 ) Insulin Human Regular Inj (Novolin R Inj (09/08/17 11:30) Sodium Chlor 0.9% 1000 Ml Inj (Ns 1000 M (09/08/17 11:45) Blood Glucose (09/08/17 12:28) Insulin Human Regular Inj (Novolin R Inj (09/08/17 13:00) Labs Laboratory Tests Test 09/08/17 10:32 White Blood Count 5.6 TH/MM3 Red Blood Count 4.57 MIL/MM3 Hemoglobin 15.2 GM/DL Hematocrit 43.1 % Mean Corpuscular Volume 94.2 FL Mean Corpuscular Hemoglobin 33.2 PG Mean Corpuscular Hemoglobin Concent 35.3 % Red Cell Distribution Width 16.0 % Platelet Count 131 TH/MM3 Mean Platelet Volume 7.4 FL Neutrophils (%) (Auto) 52.2 % Lymphocytes (%) (Auto) 35.3 % Monocytes (%) (Auto) 11.0 % Eosinophils (%) (Auto) 0.8 % Basophils (%) (Auto) 0.7 % Neutrophils # (Auto) 2.9 TH/MM3 Lymphocytes # (Auto) 2.0 TH/MM3 Monocytes # (Auto) 0.6 TH/MM3 Eosinophils # (Auto) 0.0 TH/MM3 Basophils # (Auto) 0.0 TH/MM3 CBC Comment DIFF FINAL Differential Comment Blood Urea Nitrogen 14 MG/DL Creatinine 0.91 MG/DL Random Glucose 497 MG/DL Total Protein 7.4 GM/DL Albumin 3.3 GM/DL Calcium Level 8.9 MG/DL Alkaline Phosphatase 304 U/L Aspartate Amino Transf (AST/SGOT) 125 U/L Alanine Aminotransferase (ALT/SGPT) 189 U/L Total Bilirubin 0.6 MG/DL Sodium Level 136 MEQ/L Potassium Level 4.4 MEQ/L Chloride Level 106 MEQ/L Carbon Dioxide Level 23.4 MEQ/L Anion Gap 7 MEQ/L Estimat Glomerular Filtration Rate 90 ML/MIN Thyroid Stimulating Hormone 3rd Gen 1.200 uIU/ML Salicylates Level 2.2 MG/DL Urine Opiates Screen NEG Acetaminophen Level LESS THAN 2.0 MCG/ML Urine Barbiturates Screen NEG Urine Amphetamines Screen NEG Urine Benzodiazepines Screen NEG Urine Cocaine Screen NEG Urine Cannabinoids Screen NEG Ethyl Alcohol Level LESS THAN 3 MG/DL MDM Medical Decision Making Medical Screen Exam Complete: Yes Emergency Medical Condition: Yes Medical Record Reviewed: Yes Interpretation(s) Vital Signs Date Time Temp Pulse Resp B/P (MAP) Pulse Ox O2 Delivery O2 Flow Rate FiO2 09/08/17 13:53 91 16 146/85 (105) 100 Room Air 09/08/17 10:30 99 Room Air 09/08/17 10:21 120 17 170/110 (130) 99 Room Air 09/08/17 10:07 98.5 119 18 148/88 (108) 99 Laboratory Tests Test 09/08/17 10:32 White Blood Count 5.6 TH/MM3 Red Blood Count 4.57 MIL/MM3 Hemoglobin 15.2 GM/DL Hematocrit 43.1 % Mean Corpuscular Volume 94.2 FL Mean Corpuscular Hemoglobin 33.2 PG Mean Corpuscular Hemoglobin Concent 35.3 % Red Cell Distribution Width 16.0 % Platelet Count 131 TH/MM3 Mean Platelet Volume 7.4 FL Neutrophils (%) (Auto) 52.2 % Lymphocytes (%) (Auto) 35.3 % Monocytes (%) (Auto) 11.0 % Eosinophils (%) (Auto) 0.8 % Basophils (%) (Auto) 0.7 % Neutrophils # (Auto) 2.9 TH/MM3 Lymphocytes # (Auto) 2.0 TH/MM3 Monocytes # (Auto) 0.6 TH/MM3 Eosinophils # (Auto) 0.0 TH/MM3 Basophils # (Auto) 0.0 TH/MM3 CBC Comment DIFF FINAL Differential Comment Blood Urea Nitrogen 14 MG/DL Creatinine 0.91 MG/DL Random Glucose 497 MG/DL Total Protein 7.4 GM/DL Albumin 3.3 GM/DL Calcium Level 8.9 MG/DL Alkaline Phosphatase 304 U/L Aspartate Amino Transf (AST/SGOT) 125 U/L Alanine Aminotransferase (ALT/SGPT) 189 U/L Total Bilirubin 0.6 MG/DL Sodium Level 136 MEQ/L Potassium Level 4.4 MEQ/L Chloride Level 106 MEQ/L Carbon Dioxide Level 23.4 MEQ/L Anion Gap 7 MEQ/L Estimat Glomerular Filtration Rate 90 ML/MIN Thyroid Stimulating Hormone 3rd Gen 1.200 uIU/ML Salicylates Level 2.2 MG/DL Urine Opiates Screen NEG Acetaminophen Level LESS THAN 2.0 MCG/ML Urine Barbiturates Screen NEG Urine Amphetamines Screen NEG Urine Benzodiazepines Screen NEG Urine Cocaine Screen NEG Urine Cannabinoids Screen NEG Ethyl Alcohol Level LESS THAN 3 MG/DL Differential Diagnosis Mood disorder versus substance abuse versus psychosis versus depression versus anxiety versus metabolic abnormality versus other Narrative Course Patient is a 46-year-old male that presented to the emergency department for psychiatric evaluation under Lugo act after making suicidal ideations. Patient was tachycardic on arrival, he was slightly agitated. Mental health screening discussed with the patient. Psychiatric screen ordered. Labs reviewed, CBC with no acute findings. Chemistry with a glucose of 497. 12 units of regular insulin subcutaneous as ordered. Additionally liver enzymes are elevated with an AST of 125, ALT 189 these values have improved since prior. Urine drug screen is negative, salicylate, acetaminophen and alcohol levels are normal. After administration of initial insulin dose, blood glucose is 340. Patient will be given additional 8 units of regular insulin. Heart rate has trended down and normalized. Patient was given IV fluids. Patient is medically cleared for psychiatric evaluation. Diagnosis Primary Impression: Medical clearance for psychiatric admission Additional Impression: Diabetes Qualified Codes: E11.8 - Type 2 diabetes mellitus with unspecified complications Condition: Stable Ilana Woodall [facility] Sep 08, 2017 10:35
[2017-09-08 10:47] LABS: AUTOMATED NEUTROPHIL # 2.9 TH/MM3 (1.8-7.7); BASOPHIL % 0.7 % (0.0-2.0); EOSINOPHIL % 0.8 % (0.0-4.0); HEMATOCRIT 43.1 % (39.0-51.0); HEMOGLOBIN 15.2 GM/DL (13.0-17.0); LYMPH % 35.3 % (9.0-44.0); MEAN CELL VOLUME 94.2 FL (80.0-100.0); MEAN CORPUSCULAR HEMOGLOBIN 33.2 PG (27.0-34.0); MEAN CORPUSCULAR HGB CONC 35.3 % (32.0-36.0); MEAN PLATELET VOLUME 7.4 FL (7.0-11.0); MONOCYTE # 0.6 TH/MM3 (0-0.9); NEUT % 52.2 % (16.0-70.0); PLATELET COUNT 131 TH/MM3 (150-450); RED BLOOD COUNT 4.57 MIL/MM3 (4.50-5.90); WHITE BLOOD COUNT 5.6 TH/MM3 (4.0-11.0)
--- NOTE | 2017-09-08 11:01 | RADRPT ---
EXAM DATE/TIME: 09/08/2017 10:31 [place] COMPARISON: CHEST SINGLE AP, May 07, 2017, 20:24. INDICATIONS : Shortness of breath, bilateral lower chest pain and cough. MEDICAL HISTORY : Chronic obstructive pulmonary disease. Hypertension Gastroesophageal reflux disease. Cirrhosis. SURGICAL HISTORY : Cholecystectomy. Cardiac stent. ENCOUNTER: Initial ACUITY: 4 - 6 months PAIN SCORE: 5/10 LOCATION: Bilateral lower chest FINDINGS: A single view of the chest demonstrates the lungs to be symmetrically aerated without evidence of mas s, infiltrate or effusion. The cardiomediastinal contours are unremarkable. Osseous structures are intact. CONCLUSION: No acute disease. Jose Villasenor MD on September 08, 2017 at 10:58 Board Certified Radiologist. This report was verified electronically.
[2017-09-08 11:07] LABS: ALBUMIN 3.3 GM/DL (3.4-5.0); ALT (GPT) 189 U/L (12-78); AST (GOT) 125 U/L (15-37); BICARBONATE 23.4 MEQ/L (21.0-32.0); BLOOD UREA NITROGEN 14 MG/DL (7-18); CALCIUM 8.9 MG/DL (8.5-10.1); CHLORIDE 106 MEQ/L (98-107); CREATININE 0.91 MG/DL (0.60-1.30); GLOMERULAR FILTRATION RATE 90 ML/MIN (>89); SODIUM (NA) 136 MEQ/L (136-145)
[2017-09-08 11:18] LABS: ALKALINE PHOSPHATASE 304 U/L (45-117); TOTAL BILIRUBIN ADULT 0.6 MG/DL (0.2-1.0); TOTAL PROTEIN 7.4 GM/DL (6.4-8.2)
[2017-09-08 11:19] LABS: GLUCOSE,RANDOM 497 MG/DL (74-106)
[2017-09-08] MEDS ORDERED: INSULIN HUMAN REGULAR 1,000 UNITS/10 ML VIAL SQ ONE ×2 (11:30→13:00)
[2017-09-08] MEDS ORDERED: SODIUM CHLOR 0.9% 1000 ML INJ 1,000 ML IV ONE (11:45)
[2017-09-08 12:21] LABS: ACETAMINOPHEN LESS THAN 2.0 MCG/ML (10.0-30.0)
[2017-09-08] MEDS ORDERED: INSULIN ASPART 1,000 UNITS/10 ML VIAL SQ ONE (21:45)
[2017-09-09 06:22] VITALS: BP 123/91; PULSE 103; RESP 18; TEMP 98.3; O2SAT 100
--- NOTE | 2017-09-09 10:40 | PD.PSY.CON ---
Provisional Diagnosis Admission Date Date of consultation 09/09/2017 [place] I. 1. Polysubstance abuse [place] II. 1. 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 Johnson is a 46-year-old male with a history of mixed personality disorder and adjustment disorder who presents under Lugo act by law enforcement alleging that the patient was threatening to drink himself to . Reviewing the electronic medical record, I note that the patient was admitted under my care in May of this year. Patient seen and examined. Chart reviewed. Case discussed with nursing staff. Patient noted to be somewhat demanding and fault finding, but there has been no evidence of any suicidality or homicidality or serious behavioral disturbance since the patient has been under observation in the [facility] per nursing report. On my examination this morning, the patient presents as primarily personality disordered. He presents a mixed personality disorder profile with primarily cluster B personality traits, namely antisocial. I do see in my previous documentation that there may be some component of obsessive- compulsive personality as well. He remains fault-finding, entitled, sarcastic on my exam. Presently, the patient is requesting discharge from the ED. He denies any suicidal ideation, intent or plan on direct questioning. He denies any homicidal ideation, intent or plan on direct questioning. He contracts for safety. Affect is dysphoric, but the patient does not describe any depressive or hypomanic/manic symptoms except for poor sleep. He does not describe any audiovisual hallucinations, nor is there any evidence of delusional material. There is no evidence of impairment in reality construction. Patient is seeking for pain medications and verbalizes many chronic pain complaints. Remainder of the psychiatric ROS is negative. Past psychiatric history: Previous diagnoses as noted above. He apparently had been following with [facility] for outpatient psychiatric services but has been disconnected from those services after a stay [facility]. He reports that he was admitted to the psychiatric unit in the [facility]. He endorses a history of previous suicide attempts by overdose including overdose on insulin. Family history: The patient reports that he is unsure of his family psychiatric history. He does note "my mother was a whore, and I was a heroin baby." Chemical dependency history: The patient reports that he has been drinking up to a liter and a half of liquor daily. He denies any history of DTs or seizures. He also has been abusing "huffer" and OTC hypnotics. Social history: Patient without stable housing. 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 He has 8th grade education. He reportedly has 1 child. He denies any access to guns or firearms. Denies any active legal issues. Review of Systems Except as stated in HPI: all other systems reviewed are Neg Past Family Social History Coded Allergies: No Known Allergies (Unverified , 09/08/17) Past Medical History See electronic medical record Active Scripts Insulin Human NPH Inj (Novolin N Inj) 1,000 Unit/10 Ml Vial, 4 UNITS SQ TIDAC for Blood Sugar Management for 1 Day, INJECTION 0 Refills Order is to update med rec only. Pt has adequate supply. Prov:Khai Myrick MD 06/13/17 Insulin Human Isophane-Regular 70-30 Inj (Novolin 70-30 Inj) 1,000 Unit/10 Ml Vial, 28 UNITS SQ BID@ for Blood Sugar Management, #1 VIAL 1 Refill Pharmacist: Sister is to sheepskin pickler Rx to secure meds for safety. Prov:Khai Myrick MD 06/13/17 Pantoprazole (Pantoprazole) 40 Mg Tab, 40 MG PO DAILY for Health for 15 Days, # 15 TAB 1 Refill Pharmacist: Sister is to sheepskin pickler Rx to secure meds for safety. Prov:Khai Myrick MD 06/13/17 Mirtazapine (Mirtazapine) 15 Mg Tab, 30 MG PO HS for Mental Health for 15 Days, TAB 1 Refill Pharmacist: Sister is to sheepskin pickler Rx to secure meds for safety. Prov:Khai Myrick MD 06/13/17 Reported Medications Famotidine (Famotidine) 40 Mg Tab, 40 MG PO TID, #60 TAB 0 Refills 05/20/17 Discontinued Reported Medications Aspirin (Aspirin) 81 Mg Chew, 81 MG CHEW DAILY, TAB 0 Refills 06/08/17 Discontinued Scripts Bethanechol (Urecholine) 10 Mg Tab, 10 MG PO Q8HR for Health for 15 Days, TAB 1 Refill Pharmacist: Give filled Rx to sister to secure for safety. Prov:Khai Myrick MD 06/13/17 Hydroxyzine Pamoate (Hydroxyzine Pamoate) 50 Mg Cap, 50 MG PO Q8H for Mental Health for 15 Days, #45 CAP 1 Refill Pharmacist: Sister is to sheepskin pickler Rx to secure meds for safety. Prov:Khai Myrick MD 06/13/17 Current Medications Medications (Trade) Dose Ordered Sig/Shae Route Start Time Stop Time Status Last Admin (NS Flush) 2 ml UNSCH PRN IVF 09/08/17 10:30 Patient's Strengths (min. 2) Attending to basic needs. Verbally fluent. Physical Exam Physical exam completed by ED provider. On my exam, patient appears to be in no acute physical distress but complains of subjective pain. No signs of intoxication or withdrawal noted. No motor abnormalities noted. Labs and vitals reviewed: Vital Signs Vital Signs Date Time Temp Pulse Resp B/P (MAP) Pulse Ox O2 Delivery O2 Flow Rate FiO2 09/09/17 06:22 98.3 103 18 123/91 (102) 100 Room Air Lab Results Test 09/08/17 10:32 White Blood Count 5.6 TH/MM3 Red Blood Count 4.57 MIL/MM3 Hemoglobin 15.2 GM/DL Hematocrit 43.1 % Mean Corpuscular Volume 94.2 FL Mean Corpuscular Hemoglobin 33.2 PG Mean Corpuscular Hemoglobin Concent 35.3 % Red Cell Distribution Width 16.0 % Platelet Count 131 TH/MM3 Mean Platelet Volume 7.4 FL Neutrophils (%) (Auto) 52.2 % Lymphocytes (%) (Auto) 35.3 % Monocytes (%) (Auto) 11.0 % Eosinophils (%) (Auto) 0.8 % Basophils (%) (Auto) 0.7 % Neutrophils # (Auto) 2.9 TH/MM3 Lymphocytes # (Auto) 2.0 TH/MM3 Monocytes # (Auto) 0.6 TH/MM3 Eosinophils # (Auto) 0.0 TH/MM3 Basophils # (Auto) 0.0 TH/MM3 CBC Comment DIFF FINAL Differential Comment Blood Urea Nitrogen 14 MG/DL Creatinine 0.91 MG/DL Random Glucose 497 MG/DL Total Protein 7.4 GM/DL Albumin 3.3 GM/DL Calcium Level 8.9 MG/DL Alkaline Phosphatase 304 U/L Aspartate Amino Transf (AST/SGOT) 125 U/L Alanine Aminotransferase (ALT/SGPT) 189 U/L Total Bilirubin 0.6 MG/DL Sodium Level 136 MEQ/L Potassium Level 4.4 MEQ/L Chloride Level 106 MEQ/L Carbon Dioxide Level 23.4 MEQ/L Anion Gap 7 MEQ/L Estimat Glomerular Filtration Rate 90 ML/MIN Thyroid Stimulating Hormone 3rd Gen 1.200 uIU/ML Salicylates Level 2.2 MG/DL Urine Opiates Screen NEG Acetaminophen Level LESS THAN 2.0 MCG/ML Urine Barbiturates Screen NEG Urine Amphetamines Screen NEG Urine Benzodiazepines Screen NEG Urine Cocaine Screen NEG Urine Cannabinoids Screen NEG Ethyl Alcohol Level LESS THAN 3 MG/DL Mental Status Examination Appearance: Appropriate Consciousness: Alert Orientation: x4 Motor Activity: Other (No motor abnormalities noted) Speech: Unremarkable Language: Adequate Fund of Knowledge: Adequate Attention and Concentration: Adequate Memory: Unremarkable Mood: Other (Somewhat dysphoric) Affect: Appropriate Thought Process & Associations: Intact, Logical, Goal directed, Linear Thought Content: Appropriate Hallucination Type: None Delusion Type: None Suicidal Ideation: No Suicidal Plan: No Suicidal Intention: No Homicidal Ideation: No Homicidal Plan: No Homicidal Intention: No Mental Status Exam Remarks Insight and judgment are fair at best Assessment & Plan Problem List: (1) Mixed personality disorder ICD Codes: F60.89 - Other specific personality disorders (2) Polysubstance abuse ICD Codes: F19.10 - Other psychoactive substance abuse, uncomplicated Assessment & Plan 46-year-old male with psychiatric history as detailed above who presents under a Lugo act by law enforcement. On my examination today, the patient presents as primarily personality disordered. He also reports recent abuse of substances including alcohol, inhalants and [id number] hypnotics. He is presently denying suicidal or homicidal ideation. He contracts for safety. There is no evidence of self-care deficit, and in fact the patient is quite focused on maintaining his physical health. There is no evidence of unstable mental illness as defined under the Lugo act as patient's personality disorder seems to have primarily antisocial features. Synthesizing this information and based on the available evidence, I peer support specialist that the patient does not meet Lugo act criteria. I have lifted the Lugo act. Patient is requesting discharge from the ED today, and I have no basis to retain him over his objection. Personality disorder and substance use confer chronic risk for harm to self/ others. Of the two, the substance use issue is more modifiable, and I have recommended that he pursue chemical dependency evaluation and treatment on an outpatient basis. Neither risk factor would be expected to improve on the general inpatient psychiatric unit. I have recommended that he resume follow- up at [facility]. I have counseled the patient regarding warning signs for need to return to the psychiatric emergency room as part of a general safety plan, and in particular I have instructed him to return prior to engaging in any self-injurious behavior. Patient is otherwise psychiatrically clear for discharge from the ED. Thank you very much for this consultation. Khai Myrick MD Sep 09, 2017 10:40
--- NOTE | 2017-09-09 11:45 | PD ---
Physical Exam Date Seen by Provider: Sep 09, 2017 Time Seen by Provider: 11:44 Narrative 46-year-old male previously Lugo acted, and medically cleared for psychiatric evaluation, has been seen by psychiatric staff and deemed psychiatrically stable for discharge at this time. Patient remains medically stable for discharge. Follow-up will be based on psychiatric note. Data Data Last Documented VS Vital Signs Date Time Temp Pulse Resp B/P (MAP) Pulse Ox O2 Delivery O2 Flow Rate FiO2 09/09/17 06:22 98.3 103 18 123/91 (102) 100 Room Air Orders Orders Complete Blood Count With Diff (09/08/17 10:25) Comprehensive Metabolic Panel (09/08/17 10:25) Thyroid Stimulating Hormone (09/08/17 10:25) Oximetry (09/08/17 10:25) Iv Access Insert/Monitor (09/08/17 10:25) Ecg Monitoring (09/08/17 10:25) Psych Screen (09/08/17 10:25) Sodium Chloride 0.9% Flush (Ns Flush) (09/08/17 10:30) Drug Screen, Random Urine (09/08/17 10:25) Alcohol (Ethanol) (09/08/17 10:25) Salicylates (Aspirin) (09/08/17 10:25) Tylenol (Acetaminophen) (09/08/17 10:25) Chest, Single Ap (09/08/17 ) Insulin Human Regular Inj (Novolin R Inj (09/08/17 11:30) Sodium Chlor 0.9% 1000 Ml Inj (Ns 1000 M (09/08/17 11:45) Blood Glucose (09/08/17 12:28) Insulin Human Regular Inj (Novolin R Inj (09/08/17 13:00) Diet Regular Basic (09/08/17 Dinner) Insulin Aspart Inj (Novolog Inj) (09/08/17 21:45) Diet Diabetic (09/09/17 Breakfast) Diet Regular Basic (09/09/17 Lunch) Labs Laboratory Tests Test 09/08/17 10:32 White Blood Count 5.6 TH/MM3 Red Blood Count 4.57 MIL/MM3 Hemoglobin 15.2 GM/DL Hematocrit 43.1 % Mean Corpuscular Volume 94.2 FL Mean Corpuscular Hemoglobin 33.2 PG Mean Corpuscular Hemoglobin Concent 35.3 % Red Cell Distribution Width 16.0 % Platelet Count 131 TH/MM3 Mean Platelet Volume 7.4 FL Neutrophils (%) (Auto) 52.2 % Lymphocytes (%) (Auto) 35.3 % Monocytes (%) (Auto) 11.0 % Eosinophils (%) (Auto) 0.8 % Basophils (%) (Auto) 0.7 % Neutrophils # (Auto) 2.9 TH/MM3 Lymphocytes # (Auto) 2.0 TH/MM3 Monocytes # (Auto) 0.6 TH/MM3 Eosinophils # (Auto) 0.0 TH/MM3 Basophils # (Auto) 0.0 TH/MM3 CBC Comment DIFF FINAL Differential Comment Blood Urea Nitrogen 14 MG/DL Creatinine 0.91 MG/DL Random Glucose 497 MG/DL Total Protein 7.4 GM/DL Albumin 3.3 GM/DL Calcium Level 8.9 MG/DL Alkaline Phosphatase 304 U/L Aspartate Amino Transf (AST/SGOT) 125 U/L Alanine Aminotransferase (ALT/SGPT) 189 U/L Total Bilirubin 0.6 MG/DL Sodium Level 136 MEQ/L Potassium Level 4.4 MEQ/L Chloride Level 106 MEQ/L Carbon Dioxide Level 23.4 MEQ/L Anion Gap 7 MEQ/L Estimat Glomerular Filtration Rate 90 ML/MIN Thyroid Stimulating Hormone 3rd Gen 1.200 uIU/ML Salicylates Level 2.2 MG/DL Urine Opiates Screen NEG Acetaminophen Level LESS THAN 2.0 MCG/ML Urine Barbiturates Screen NEG Urine Amphetamines Screen NEG Urine Benzodiazepines Screen NEG Urine Cocaine Screen NEG Urine Cannabinoids Screen NEG Ethyl Alcohol Level LESS THAN 3 MG/DL MDM Medical Record Reviewed: Yes Supervised Visit with KASSI: Yes Narrative Course 46-year-old male previously Lugo acted, and medically cleared for psychiatric evaluation, has been seen by psychiatric staff and deemed psychiatrically stable for discharge at this time. Patient remains medically stable for discharge. Follow-up will be based on psychiatric note. Diagnosis Primary Impression: Medical clearance for psychiatric admission Additional Impression: Diabetes Qualified Codes: E11.8 - Type 2 diabetes mellitus with unspecified complications Patient Instructions: General Instructions Disposition: 01 DISCHARGE HOME Condition: Stable Johnathan Griffiths Sep 09, 2017 11:45
== END 2017-09-09 13:19 | disposition home or self-care (01) ==
LOC: NEPD 10:00 → NEPJ 09-09 13:19
DX: F60.89 Other specific personality disorders (principal); F19.10 Other psychoactive substance abuse, uncomplicated; E11.8 Type 2 diabetes mellitus with unspecified complications; I10 Essential (primary) hypertension; K21.9 Gastro-esophageal reflux disease without esophagitis; Z79.4 Long term (current) use of insulin; Z79.899 Other long term (current) drug therapy
CPT/HCPCS: 71045; 80053; 80307; 84443; 85025; 96360; 96372; 99284; J1815; J7030